=== PATIENT | male | born 1960 | race Caucasian/White ===

== ENCOUNTER 2016-06-04 23:05 | Emergency (ER) | payer OTHER ==
[2016-06-04 23:19] VITALS: RESP 18
[2016-06-04 23:31] LABS: Basophils # (A) 0.1 k/uL (0-0.2); Basophils % (A) 1 %; CH 34.1; Eosinophils # (A) 0.1 k/uL (0-0.7); Eosinophils % (A) 2 %; HCT 39.9 % (39.0-53.0); HDW 2.55; HGB 13.4 gm/dL (13.0-17.5); Luc # (Auto) 0.18; Luc % (Auto) 4; Lymphocytes # (A) 2.8 k/uL (1.0-4.8); Lymphocytes % (A) 54 %; MCH 32.8 pg (25.0-35.0); MCHC 33.6 g/dL (31.0-37.0); MCV 97.8 fL (80.0-100.0); Mean Platelet Volume 6.6; Monocytes # (A) 0.6 k/uL (0-1.0); Monocytes % (A) 11 %; Neutrophils # (A) 1.5 k/uL (1.3-7.7); Neutrophils % (A) 28 %; RBC 4.08 m/uL (4.30-5.90); RDW 14.2 % (11.5-15.5); WBC 5.2 k/uL (3.8-10.6); WBC (Perox) 5.21
[2016-06-04 23:39] LABS: ALT 24 U/L (21-72); AST 18 U/L (17-59); Alkaline Phosphatase 60 U/L (38-126); Amylase 73 U/L (30-110); Anion Gap 14 mmol/L; Blood Urea Nitrogen 11 mg/dL (9-20); Calcium 9.3 mg/dL (8.4-10.2); Carbon Dioxide 22 mmol/L (22-30); Chloride 102 mmol/L (98-107); Glucose 89 mg/dL (74-99); Magnesium 2.3 mg/dL (1.6-2.3); Non-African American GFR(MDRD) >60 (>60 ml/min/1.73 sqM); Sodium 138 mmol/L (137-145); Total Bilirubin 0.7 mg/dL (0.2-1.3); Total Protein 7.2 g/dL (6.3-8.2)
[2016-06-04 23:42] LABS: Partial Thromboplastin Time 25.7 sec (22.0-30.0); Prothrombin Time 10.2 sec (9.0-12.0)
[2016-06-04 23:49] LABS: Creatine Kinase 105 U/L (55-170); Manual Review Performed
[2016-06-05 00:02] LABS: Creatine Kinase MB 0.7 ng/mL (0.0-2.4); Troponin I <0.012 ng/mL (0.000-0.034)
--- NOTE | 2016-06-05 00:14 | XR ---
EXAM: XR Chest, 2 Views. CLINICAL HISTORY: Reason: Chest Pain TECHNIQUE: Frontal and lateral views of the chest. COMPARISON: Chest x-ray 03/27/16 FINDINGS: Lungs: Bilateral interstitial thickening, similar to prior. Pleural space: Unremarkable. No pneumothorax. Heart: Unremarkable. No cardiomegaly. Mediastinum: Unremarkable. Bones/joints: Unremarkable. IMPRESSION: Bilateral interstitial thickening, similar to prior. Findings may represent fibrotic changes, although mild edema or atypical pneumonia are considerations in the appropriate clinical setting.
[2016-06-05 00:16] VITALS: BP 108/60; PULSE 71; TEMP 97.8
--- NOTE | 2016-06-05 01:05 | ED ---
Chest Pain HPI - General Chief Complaint: Chest Pain Stated Complaint: Chest Pain Time Seen by Provider: 06/04/16 23:10 Source: patient, EMS Mode of arrival: EMS Limitations: no limitations - History of Present Illness MD Complaint: chest pain -: hour(s) Onset: during rest Pain Location: substernal Severity: moderate Quality: other (Burning) Consistency: constant Improves With: nothing Worsens With: nothing - Related Data Home Medications Medication Instructions Recorded Confirmed Aspirin EC [Ecotrin Low Dose] 81 mg PO DAILY 03/12/16 03/27/16 Gabapentin [Neurontin] 300 mg PO BID 03/12/16 03/27/16 Ibuprofen [Motrin] 800 mg PO TID PRN 03/12/16 03/27/16 QUEtiapine FUMARATE [Seroquel Xr] 300 mg PO HS 03/12/16 03/27/16 Previous Rx's Medication Instructions Recorded Atorvastatin [Lipitor] 20 mg PO HS #30 tab 02/04/16 Cilostazol [Pletal] 100 mg PO BID #30 tab 02/04/16 Cyanocobalamin [Vitamin B-12] 1,000 mcg PO DAILY #30 tab 02/04/16 Ergocalciferol [Vitamin D2 50,000 unit PO Q7D #7 cap 02/04/16 (DRISDOL)] Escitalopram [Lexapro] 20 mg PO DAILY #30 tab 02/04/16 Nitroglycerin Sl Tabs [Nitrostat] 0.4 mg SUBLINGUAL Q5M PRN #30 tab 02/04/16 traZODone HCL [Desyrel] 100 mg PO HS #30 tab 02/04/16 Ibuprofen [Motrin] 600 mg PO Q6HR PRN #20 tab 03/27/16 Allergies Allergy/AdvReac Type Severity Reaction Status Date / Time No Known Allergies Allergy Verified 06/04/16 23:15 Review of Systems ROS Statement: Those systems with pertinent positive or pertinent negative responses have been documented in the HPI. ROS Other: All systems not noted in ROS Statement are negative. Constitutional: Denies: fever, chills Respiratory: Denies: cough, dyspnea, wheezes Cardiovascular: Reports: as per HPI, chest pain. Denies: palpitations, edema, syncope Gastrointestinal: Denies: abdominal pain, nausea, vomiting, diarrhea Musculoskeletal: Denies: back pain Skin: Denies: rash Neurological: Denies: headache, weakness, numbness EKG Findings - EKG Results: EKG: interpreted by ELDA ZEPEDA, sinus rhythm (Rate 74 bpm), normal axis, normal QRS, normal ST/T, no acute changes - MO, Pacemaker, Normal: Normal tracing: normal tracing Past Medical History Past Medical History: Chest Pain / Angina, COPD, Deep Vein Thrombosis (DVT), Hyperlipidemia, Myocardial Infarction ([place]), Osteoarthritis (OA), Pulmonary Embolus (PE) Additional Past Medical History / Comment(s): 02/15/15 PT brought to [facility] ER by police after being apprehended for arrest warrants. Admitted for atypical chest pain, depression, ETOH intoxication , abdominal pain, chest wall pain. Admission on 12/22/14 for L leg pain-possibly muscular skeletal, L sided chest pain possible muscular skeletal with negative dobutamine stress test and hyponatremia. HX: dvt lt lower leg, pe 02-01-13, gout, linh inguinal hernias, psoriases, fx rt hand, occ vertigo. pt is edentulous, L forearm scars from suicide attempts, normocytic anemia, DJD. Last Myocardial Infarction Date:: early History of Any Multi-Drug Resistant Organisms: None Reported Past Surgical History: Orthopedic Surgery Additional Past Surgical History / Comment(s): orif lt leg plate/screws have since been removed. Past Anesthesia/Blood Transfusion Reactions: No Reported Reaction Past Psychological History: Anxiety, Depression Additional Psychological History / Comment(s): Pt states he lives with spouse. He denies using assistive device. According to PMR pt has had suicidal ideations in the past as well as scars on forearm due to suicide attempts. Smoking Status: Current every day smoker Past Alcohol Use History: Heavy Additional Past Alcohol Use History / Comment(s): started smoking at age 10 smokes 2.5 ppd, smoking cessation booklet given to pt. Patient denies any marijuana or street drug use. Patient states that he drinks 12 beers whenever he can get it. He denies any drug use. He lives at home with his .. Past Drug Use History: None Reported - Past Family History Brother(s) Additional Family Medical History / Comment(s): He has 3 brothers with no major medical problems. Patient does not have any sisters. He has 4 children are apparently okay. Father Family Medical History: Myocardial Infarction (MO) Additional Family Medical History / Comment(s): in his 60's [place] Mother Family Medical History: Myocardial Infarction ([place]) Additional Family Medical History / Comment(s): in her 60's [place] General Exam Limitations: no limitations General appearance: alert, in no apparent distress Head exam: Present: atraumatic, normocephalic Eye exam: Present: normal appearance. Absent: scleral icterus, conjunctival injection Respiratory exam: Present: normal lung sounds bilaterally. Absent: respiratory distress, wheezes, rales, rhonchi, stridor Cardiovascular Exam: Present: regular rate, normal rhythm, normal heart sounds. Absent: systolic murmur, diastolic murmur GI/Abdominal exam: Present: soft. Absent: distended, tenderness, guarding, rebound Extremities exam: Present: normal inspection, normal capillary refill. Absent: pedal edema, calf tenderness Back exam: Present: normal inspection. Absent: CVA tenderness (R), CVA tenderness (L) Neurological exam: Present: alert Skin exam: Present: warm, dry, intact, normal color. Absent: rash Course Vital Signs 06/04/16 06/05/16 23:15 00:15 Temperature 97.5 F L 97.8 F Pulse Rate 85 71 Respiratory 18 18 Rate Blood Pressure 114/66 108/60 O2 Sat by Pulse 99 95 Oximetry Disposition Clinical Impression: Chest pain, Alcohol intoxication Disposition: HOME SELF-CARE Condition: Good Instructions: Chest Pain (ED) Referrals: None,Stated [Primary Care Provider] - 1-2 days
== END 2016-06-05 01:28 | disposition home or self-care (01) ==
LOC: EC 23:05
DX: R07.9 Chest pain, unspecified (principal); F10.129 Alcohol abuse with intoxication, unspecified; M19.90 Unspecified osteoarthritis, unspecified site; F32.9 Major depressive disorder, single episode, unspecified; M10.9 Gout, unspecified; F41.9 Anxiety disorder, unspecified; I25.2 Old myocardial infarction; F17.200 Nicotine dependence, unspecified, uncomplicated; Z82.49 Family history of ischemic heart disease and other diseases of the circulatory system; Z95.0 Presence of cardiac pacemaker; Z79.82 Long term (current) use of aspirin; Z79.899 Other long term (current) drug therapy
CPT/HCPCS: 36415; 71020; 80053; 82075; 82150; 82550; 82553; 83690; 83735; 84484; 85025; 85610; 85730; 93005; 99285

== ENCOUNTER 2016-11-17 01:29 | Emergency (ER) | payer OTHER ==
[2016-11-17] MEDS ORDERED: KETOROLAC 30 MG/ML 1 ML VIAL IVP STA (02:17)
[2016-11-17] MEDS ORDERED: MECLIZINE 12.5 MG TAB PO STA (02:17)
[2016-11-17 03:02] LABS: Basophils # (A) 0.1 k/uL (0-0.2); Basophils % (A) 2 %; CH 34.1; CHCM 34.6; Eosinophils # (A) 0.2 k/uL (0-0.7); Eosinophils % (A) 3 %; HCT 40.4 % (39.0-53.0); HDW 2.46; Luc % (Auto) 2; Lymphocytes # (A) 2.3 k/uL (1.0-4.8); Lymphocytes % (A) 42 %; MCH 34.2 pg (25.0-35.0); MCHC 34.6 g/dL (31.0-37.0); MCV 98.9 fL (80.0-100.0); Mean Platelet Volume 7.6; Monocytes # (A) 0.6 k/uL (0-1.0); Monocytes % (A) 12 %; Neutrophils # (A) 2.2 k/uL (1.3-7.7); Neutrophils % (A) 41 %; RBC 4.08 m/uL (4.30-5.90); RDW 14.2 % (11.5-15.5); WBC 5.4 k/uL (3.8-10.6)
[2016-11-17 03:12] LABS: ALT 25 U/L (21-72); AST 18 U/L (17-59); Alkaline Phosphatase 85 U/L (38-126); Anion Gap 11 mmol/L; Blood Urea Nitrogen 9 mg/dL (9-20); C Reactive Protein 33.6 mg/L (<10.0); Calcium 9.4 mg/dL (8.4-10.2); Carbon Dioxide 25 mmol/L (22-30); Chloride 102 mmol/L (98-107); Glucose 88 mg/dL (74-99); Non-African American GFR(MDRD) >60 (>60 ml/min/1.73 sqM); Sodium 138 mmol/L (137-145); Total Bilirubin 0.5 mg/dL (0.2-1.3); Total Protein 7.5 g/dL (6.3-8.2); Uric Acid 5.7 mg/dL (3.5-8.5)
--- NOTE | 2016-11-17 03:18 | ED ---
Lower Extremity Injury HPI - General Source: patient, RN notes reviewed Mode of arrival: ambulatory Limitations: no limitations <Carlos Barr - Last Filed: 11/17/16 03:15> <Emir Lugo - Last Filed: 11/17/16 06:23> - General Chief Complaint: Extremity Injury, Lower Stated Complaint: Leg pain Time Seen by Provider: 11/17/16 01:53 - History of Present Illness Initial Comments: this a 55-year-old male presents emergency Department with multiple complaints. Patient complains of bilateral feet pain which is chronic in nature but states his right leg has had increased swelling in his foot primarily. Patient states it started 4 days ago. Patient states she has a history DVT of his left lower extremity. Patient states that his right foot is very painful to touch and to step on. Patient denies any trauma or any injury noted. Patient states she's had low-grade temps at home. Patient denies any history of infection to his feet. Patient states that he also had had some dizziness was started 1 hour ago. Patient states felt the room was spinning. He did state it was better at rest. Denies any chest pain no shortness of breath. (Carlos Barr) - Related Data Home Medications Medication Instructions Recorded Confirmed Aspirin EC [Ecotrin Low Dose] 81 mg PO DAILY 03/12/16 03/27/16 Gabapentin [Neurontin] 300 mg PO BID 03/12/16 03/27/16 Ibuprofen [Motrin] 800 mg PO TID PRN 03/12/16 03/27/16 QUEtiapine FUMARATE [Seroquel Xr] 300 mg PO HS 03/12/16 03/27/16 Previous Rx's Medication Instructions Recorded Atorvastatin [Lipitor] 20 mg PO HS #30 tab 02/04/16 Cilostazol [Pletal] 100 mg PO BID #30 tab 02/04/16 Cyanocobalamin [Vitamin B-12] 1,000 mcg PO DAILY #30 tab 02/04/16 Ergocalciferol [Vitamin D2 50,000 unit PO Q7D #7 cap 02/04/16 (DRISDOL)] Escitalopram [Lexapro] 20 mg PO DAILY #30 tab 02/04/16 Nitroglycerin Sl Tabs [Nitrostat] 0.4 mg SUBLINGUAL Q5M PRN #30 tab 02/04/16 traZODone HCL [Desyrel] 100 mg PO HS #30 tab 02/04/16 Ibuprofen [Motrin] 600 mg PO Q6HR PRN #20 tab 03/27/16 Sulfamethox-Tmp 800-160Mg [Bactrim 2 each PO Q12HR #28 tab 11/17/16 Ds] Allergies Allergy/AdvReac Type Severity Reaction Status Date / Time No Known Allergies Allergy Verified 11/17/16 01:37 Review of Systems ROS Other: All systems not noted in ROS Statement are negative. <Carlos Barr - Last Filed: 11/17/16 03:15> ROS Other: All systems not noted in ROS Statement are negative. <Emir Lugo - Last Filed: 11/17/16 06:23> ROS Statement: Those systems with pertinent positive or pertinent negative responses have been documented in the HPI. Past Medical History Past Medical History: Chest Pain / Angina, COPD, Deep Vein Thrombosis (DVT), Hyperlipidemia, Myocardial Infarction (DC), Osteoarthritis (OA), Pulmonary Embolus (PE) Additional Past Medical History / Comment(s): 02/15/15 PT brought to [facility] ER by police after being apprehended for arrest warrants. Admitted for atypical chest pain, depression, ETOH intoxication , abdominal pain, chest wall pain. Admission on 12/22/14 for L leg pain-possibly muscular skeletal, L sided chest pain possible muscular skeletal with negative dobutamine stress test and hyponatremia. HX: dvt lt lower leg, pe 02-01-13, gout, linh inguinal hernias, psoriases, fx rt hand, occ vertigo. pt is edentulous, L forearm scars from suicide attempts, normocytic anemia, DJD. Last Myocardial Infarction Date:: early History of Any Multi-Drug Resistant Organisms: None Reported Past Surgical History: Orthopedic Surgery Additional Past Surgical History / Comment(s): orif lt leg plate/screws have since been removed. Past Anesthesia/Blood Transfusion Reactions: No Reported Reaction Past Psychological History: Anxiety, Depression Smoking Status: Current every day smoker Past Alcohol Use History: Daily, Heavy Past Drug Use History: None Reported - Past Family History Brother(s) Additional Family Medical History / Comment(s): He has 3 brothers with no major medical problems. Patient does not have any sisters. He has 4 children are apparently okay. Father Family Medical History: Myocardial Infarction (DC) Additional Family Medical History / Comment(s): in his 60's [place] Mother Family Medical History: Myocardial Infarction (DC) Additional Family Medical History / Comment(s): in her 60's [place] <Carlos Barr - Last Filed: 11/17/16 03:15> General Exam Limitations: no limitations General appearance: alert, in no apparent distress Eye exam: Present: normal appearance, PERRL, EOMI. Absent: scleral icterus, conjunctival injection, periorbital swelling ENT exam: Present: normal exam, mucous membranes moist, TM's normal bilaterally , normal external ear exam. Absent: normal oropharynx (edentulous) Neck exam: Present: normal inspection. Absent: tenderness, meningismus, lymphadenopathy Respiratory exam: Present: normal lung sounds bilaterally. Absent: respiratory distress, wheezes, rales, rhonchi, stridor Cardiovascular Exam: Present: regular rate, normal rhythm, normal heart sounds. Absent: systolic murmur, diastolic murmur, rubs, gallop, clicks GI/Abdominal exam: Present: soft, normal bowel sounds. Absent: distended, tenderness, guarding, rebound, rigid Extremities exam: Present: other (right lower extremity there is moderate swelling primarily to the foot with erythema and warmth. There is a faint pedal pulses 1+ on the right. Patient has chronic changes of left lower extremities no swelling) Neurological exam: Present: alert, oriented X3, CN II-XII intact, reflexes normal. Absent: motor sensory deficit <Carlos Barr - Last Filed: 11/17/16 03:15> Medical Decision Making - Lab Data Result diagrams: 11/17/16 02:44 11/17/16 02:44 <Carlos Barr - Last Filed: 11/17/16 03:15> - Lab Data Result diagrams: 11/17/16 02:44 11/17/16 02:44 <Emir Lugo - Last Filed: 11/17/16 06:23> - Lab Data Lab Results 11/17/16 11/17/16 11/17/16 Range/Units 02:44 02:44 02:44 WBC 5.4 (3.8-10.6) k/uL RBC 4.08 L (4.30-5.90) m/uL Hgb 14.0 (13.0-17.5) gm/dL Hct 40.4 (39.0-53.0) % MCV 98.9 (80.0-100.0) fL MCH 34.2 (25.0-35.0) pg MCHC 34.6 (31.0-37.0) g/dL RDW 14.2 (11.5-15.5) % Plt Count 187 (150-450) k/uL Neutrophils % 41 % Lymphocytes % 42 % Monocytes % 12 % Eosinophils % 3 % Basophils % 2 % Neutrophils # 2.2 (1.3-7.7) k/uL Lymphocytes # 2.3 (1.0-4.8) k/uL Monocytes # 0.6 (0-1.0) k/uL Eosinophils # 0.2 (0-0.7) k/uL Basophils # 0.1 (0-0.2) k/uL PT 10.0 (9.0-12.0) sec INR 1.0 (<1.2) APTT 27.2 (22.0-30.0) sec D-Dimer 0.74 H (<0.60) mg/L FEU Sodium 138 (137-145) mmol/L Potassium 4.0 (3.5-5.1) mmol/L Chloride 102 (98-107) mmol/L Carbon Dioxide 25 (22-30) mmol/L Anion Gap 11 mmol/L BUN 9 (9-20) mg/dL Creatinine 1.10 (0.66-1.25) mg/dL Est GFR (MDRD) Af Amer >60 (>60 ml/min/1.73 sqM) Est GFR (MDRD) Non-Af >60 (>60 ml/min/1.73 sqM) Glucose 88 (74-99) mg/dL Uric Acid 5.7 (3.5-8.5) mg/dL Calcium 9.4 (8.4-10.2) mg/dL Total Bilirubin 0.5 (0.2-1.3) mg/dL AST 18 (17-59) U/L ALT 25 (21-72) U/L Alkaline Phosphatase 85 (38-126) U/L Troponin I (0.000-0.034) ng/mL C-Reactive Protein 33.6 H (<10.0) mg/L Total Protein 7.5 (6.3-8.2) g/dL Albumin 4.4 (3.5-5.0) g/dL 11/17/16 Range/Units 02:44 WBC (3.8-10.6) k/uL RBC (4.30-5.90) m/uL Hgb (13.0-17.5) gm/dL Hct (39.0-53.0) % MCV (80.0-100.0) fL MCH (25.0-35.0) pg MCHC (31.0-37.0) g/dL RDW (11.5-15.5) % Plt Count (150-450) k/uL Neutrophils % % Lymphocytes % % Monocytes % % Eosinophils % % Basophils % % Neutrophils # (1.3-7.7) k/uL Lymphocytes # (1.0-4.8) k/uL Monocytes # (0-1.0) k/uL Eosinophils # (0-0.7) k/uL Basophils # (0-0.2) k/uL PT (9.0-12.0) sec INR (<1.2) APTT (22.0-30.0) sec D-Dimer (<0.60) mg/L FEU Sodium (137-145) mmol/L Potassium (3.5-5.1) mmol/L Chloride (98-107) mmol/L Carbon Dioxide (22-30) mmol/L Anion Gap mmol/L BUN (9-20) mg/dL Creatinine (0.66-1.25) mg/dL Est GFR (MDRD) Af Amer (>60 ml/min/1.73 sqM) Est GFR (MDRD) Non-Af (>60 ml/min/1.73 sqM) Glucose (74-99) mg/dL Uric Acid (3.5-8.5) mg/dL Calcium (8.4-10.2) mg/dL Total Bilirubin (0.2-1.3) mg/dL AST (17-59) U/L ALT (21-72) U/L Alkaline Phosphatase (38-126) U/L Troponin I <0.012 (0.000-0.034) ng/mL C-Reactive Protein (<10.0) mg/L Total Protein (6.3-8.2) g/dL Albumin (3.5-5.0) g/dL 11/17/16 03:17 EKG performed at 2:32 sinus bradycardia with a rate of 59 HI interval 140 QRS duration 86 QT/QTC 48/403 (Carlos Barr) Disposition <Carlos Barr - Last Filed: 11/17/16 03:15> <Emir Lugo - Last Filed: 11/17/16 06:23> Clinical Impression: Cellulitis Disposition: HOME SELF-CARE Condition: Fair Instructions: Cellulitis (ED) Prescriptions: Sulfamethox-Tmp 800-160Mg [Bactrim Ds] 2 each PO Q12HR #28 tab Referrals: None,Stated [Primary Care Provider] - 1-2 days
[2016-11-17 03:19] LABS: Partial Thromboplastin Time 27.2 sec (22.0-30.0)
[2016-11-17 04:12] VITALS: RESP 16
[2016-11-17] MEDS ORDERED: HYDROcodone/APAP 5-325MG 1 EACH TAB PO STA (04:34)
--- NOTE | 2016-11-17 04:36 | XR ---
PROCEDURE: FILM RIGHT FOOT HISTORY: 56-year-old male with right foot pain. COMPARISON: None TECHNIQUE: Frontal, lateral, and oblique views of the right foot were obtained. FINDINGS: Limited by osteopenia. Both ruptures are intact. Joint spaces are preserved. Soft tissue swelling. 1 centimeter os trigonum. IMPRESSION: Soft tissue swelling without evidence of acute fracture or subluxation. 1 centimeter os trigonum.
[2016-11-17 06:08] VITALS: BP 107/66; PULSE 50
--- NOTE | 2016-11-17 06:17 | US ---
PROCEDURE: US VENOUS RIGHT LOWER EXTREMITY HISTORY: 56-year-old male with right lower extremity pain. COMPARISON: None TECHNIQUE: Real-time sonographic evaluation of the right lower extremity deep venous system was performed using compression, color flow, and Doppler/spectral waveform analysis. FINDINGS: Right: Appropriate compression and color flow identified within the visualized external iliac vein, common femoral vein, superior aspect of the greater saphenous vein, deep femoral vein, femoral vein, and popliteal vein, small saphenous vein, and proximal aspect of the calf veins. Appropriate flow identified within the posterior tibialis vein and the peroneal vein. IMPRESSION: 1. No evidence of DVT in the visualized right lower extremity deep venous system as detailed above.
[2016-11-17] MEDS ORDERED: SULFAMETHOX-TMP 800-160MG 1 EACH TAB PO STA (06:23)
[2016-11-17 06:56] VITALS: TEMP 97.9
== END 2016-11-17 06:54 | disposition home or self-care (01) ==
LOC: EC 01:29
DX: L03.115 Cellulitis of right lower limb (principal); R00.1 Bradycardia, unspecified; E78.5 Hyperlipidemia, unspecified; I25.2 Old myocardial infarction; F41.9 Anxiety disorder, unspecified; F32.9 Major depressive disorder, single episode, unspecified; F17.200 Nicotine dependence, unspecified, uncomplicated; Z86.711 Personal history of pulmonary embolism; Z86.718 Personal history of other venous thrombosis and embolism; Z79.82 Long term (current) use of aspirin; Z79.899 Other long term (current) drug therapy
CPT/HCPCS: 99284; 96374; 36415; 93005; 85379; 80053; 84550; 84484; 85025; 85610; 85730; 86140; 73630; 93971; J1885

== ENCOUNTER 2017-01-03 00:37 | Emergency (ER) | payer OTHER ==
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
--- NOTE | 2017-01-03 02:54 | CT ---
EXAM: CT Head Without Intravenous Contrast CLINICAL HISTORY: Reason: Trauma TECHNIQUE: Axial computed tomography images of the head/brain without intravenous contrast. CTDI is 60 mGy and DLP is 1100 mGy-cm. This CT exam was performed using one or more of the following dose reduction techniques: automated exposure control, adjustment of the mA and/or kV according to patient size, and/or use of iterative reconstruction technique. COMPARISON: No relevant prior studies available. FINDINGS: Brain: Unremarkable. No hemorrhage. Age-appropriate white matter appearance. Ventricles: Unremarkable. No ventriculomegaly. Bones/joints: Unremarkable. No acute fracture. Soft tissues: Unremarkable. Sinuses: Unremarkable as visualized. Mastoid air cells: Unremarkable as visualized. No mastoid effusion. IMPRESSION: No acute intracranial hemorrhage or skull fractures. EXAM: CT Cervical Spine Without Intravenous Contrast CLINICAL HISTORY: Reason: Trauma TECHNIQUE: Axial computed tomography images of the cervical spine without intravenous contrast. CTDI is 20 mGy and DLP is 400 mGy-cm. This CT exam was performed using one or more of the following dose reduction techniques: automated exposure control, adjustment of the mA and/or kV according to patient size, and/or use of iterative reconstruction technique. COMPARISON: No relevant prior studies available. FINDINGS: Vertebrae: Unremarkable. No acute fracture. Discs/spinal canal/neural foramina: No acute findings. Chronic multilevel degenerative disease. Soft tissues: Unremarkable. Lung apices: Unremarkable as visualized. IMPRESSION: No acute fractures or prevertebral soft tissue swelling.
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
--- NOTE | 2017-01-03 03:11 | XR ---
EXAM: XR Left Knee, 3 views CLINICAL HISTORY: Reason: Trauma TECHNIQUE: Three views of the left knee. COMPARISON: No relevant prior studies available. FINDINGS: Bones/joints: No radiographic evidence for acute fracture. No dislocation. Soft tissues: Anterior soft tissue swelling. Left knee effusion. Atherosclerotic calcifications. IMPRESSION: No acute fractures or dislocation. Anterior soft tissue swelling and left knee effusion.
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
[2017-01-03 03:25] VITALS: BP 115/68; PULSE 68; RESP 16; TEMP 97.4
[2017-01-03] MEDS ORDERED: KETOROLAC 30 MG/ML 1 ML VIAL IM STA (03:31)
== END 2017-01-03 03:54 | disposition home or self-care (01) ==
LOC: EC 00:37
DX: S46.912A Strain of unspecified muscle, fascia and tendon at shoulder and upper arm level, left arm, initial encounter (principal); M25.462 Effusion, left knee; J44.9 Chronic obstructive pulmonary disease, unspecified; E78.5 Hyperlipidemia, unspecified; I25.2 Old myocardial infarction; M19.90 Unspecified osteoarthritis, unspecified site; Z86.711 Personal history of pulmonary embolism; Z86.718 Personal history of other venous thrombosis and embolism; F41.9 Anxiety disorder, unspecified; F32.9 Major depressive disorder, single episode, unspecified; F17.200 Nicotine dependence, unspecified, uncomplicated; Z79.82 Long term (current) use of aspirin; Z79.899 Other long term (current) drug therapy; V19.9XXA Pedal cyclist (driver) (passenger) injured in unspecified traffic accident, initial encounter; Y93.55 Activity, bike riding
CPT/HCPCS: 99284 ×2; 96372 ×2; 82075; 72072; 72110; 73030; 73562; 72125; 70450; J1885

== ENCOUNTER 2017-06-30 22:57 | Emergency (ER) | payer OTHER ==
[2017-06-30] MEDS ORDERED: SODIUM CHLORIDE 0.9% 1,000 ML IV STA (23:18)
[2017-06-30] MEDS ORDERED: SODIUM CHLORIDE 0.9% 500 ML IV STA (23:18)
--- NOTE | 2017-06-30 23:34 | ED ---
General Adult HPI - General Chief complaint: Fall Stated complaint: Fall- Head Injury Time Seen by Provider: 06/30/17 23:14 Source: patient, family, RN notes reviewed, old records reviewed Mode of arrival: wheelchair Limitations: altered mental status - History of Present Illness Initial comments: 56-year-old male presents status post fall with head injury. Patient fell out of bed approximately 9 PM, striking the left side of his head. Is complaining headache is some neck pain. Patient had complete ambulating to his son's vehicle after the fall. His been somewhat confused. Patient's son states he does have history of heart issues and was previously prescribed blood thinners but is not taking this medication in several months. They are uncertain what blood thinners he was on. Patient does admit to drinking several beers earlier in the day. No history of vomiting. Patient does admit to being suicidal. - Related Data Home Medications Medication Instructions Recorded Confirmed Aspirin EC [Ecotrin Low Dose] 81 mg PO DAILY 03/12/16 01/03/17 Gabapentin [Neurontin] 300 mg PO BID 03/12/16 01/03/17 Ibuprofen [Motrin] 800 mg PO TID PRN 03/12/16 01/03/17 QUEtiapine FUMARATE [Seroquel Xr] 300 mg PO HS 03/12/16 01/03/17 Previous Rx's Medication Instructions Recorded Atorvastatin [Lipitor] 20 mg PO HS #30 tab 02/04/16 Cilostazol [Pletal] 100 mg PO BID #30 tab 02/04/16 Cyanocobalamin [Vitamin B-12] 1,000 mcg PO DAILY #30 tab 02/04/16 Ergocalciferol [Vitamin D2 50,000 unit PO Q7D #7 cap 02/04/16 (DRISDOL)] Escitalopram [Lexapro] 20 mg PO DAILY #30 tab 02/04/16 Nitroglycerin Sl Tabs [Nitrostat] 0.4 mg SUBLINGUAL Q5M PRN #30 tab 02/04/16 traZODone HCL [Desyrel] 100 mg PO HS #30 tab 02/04/16 Ibuprofen [Motrin] 600 mg PO Q6HR PRN #20 tab 03/27/16 Sulfamethox-Tmp 800-160Mg [Bactrim 2 each PO Q12HR #28 tab 08/18/17 Ds] HYDROcodone/APAP 5-325MG [[place] 1 tab PO Q6HR PRN #20 tab 01/03/17 5-325] Hydrocodone/Acetaminophen [[place] 1 tab PO Q6HR PRN #15 tab 01/03/17 5-325] Allergies Allergy/AdvReac Type Severity Reaction Status Date / Time No Known Allergies Allergy Verified 06/30/17 23:04 Review of Systems ROS Statement: Those systems with pertinent positive or pertinent negative responses have been documented in the HPI. ROS Other: All systems not noted in ROS Statement are negative. Past Medical History Past Medical History: Chest Pain / Angina, COPD, Deep Vein Thrombosis (DVT), Hyperlipidemia, Myocardial Infarction ([place]), Osteoarthritis (OA), Pulmonary Embolus (PE) Additional Past Medical History / Comment(s): 02/15/15 PT brought to [facility] ER by police after being apprehended for arrest warrants. Admitted for atypical chest pain, depression, ETOH intoxication , abdominal pain, chest wall pain. Admission on 12/22/14 for L leg pain-possibly muscular skeletal, L sided chest pain possible muscular skeletal with negative dobutamine stress test and hyponatremia. HX: dvt lt lower leg, pe 02-01-13, gout, linh inguinal hernias, psoriases, fx rt hand, occ vertigo. pt is edentulous, L forearm scars from suicide attempts, normocytic anemia, DJD. Last Myocardial Infarction Date:: early History of Any Multi-Drug Resistant Organisms: None Reported Past Surgical History: Orthopedic Surgery Additional Past Surgical History / Comment(s): orif lt leg plate/screws have since been removed. Past Anesthesia/Blood Transfusion Reactions: No Reported Reaction Past Psychological History: Anxiety, Depression Smoking Status: Current every day smoker Past Alcohol Use History: Daily, Heavy Past Drug Use History: None Reported - Past Family History Brother(s) Additional Family Medical History / Comment(s): He has 3 brothers with no major medical problems. Patient does not have any sisters. He has 4 children are apparently okay. Father Family Medical History: Myocardial Infarction ([place]) Additional Family Medical History / Comment(s): in his 60's [place] Mother Family Medical History: Myocardial Infarction ([place]) Additional Family Medical History / Comment(s): in her 60's [place] General Exam Limitations: altered mental status General appearance: alert, appears intoxicated Head exam: Present: other (Left parietal hematoma) Eye exam: Present: normal appearance, PERRL, EOMI ENT exam: Present: mucous membranes dry Neck exam: Present: tenderness Respiratory exam: Present: normal lung sounds bilaterally. Absent: respiratory distress, wheezes Cardiovascular Exam: Present: regular rate, normal rhythm GI/Abdominal exam: Present: soft. Absent: distended, tenderness Extremities exam: Present: normal inspection, normal capillary refill. Absent: pedal edema Back exam: Present: normal inspection, full ROM Neurological exam: Present: alert, oriented X3, CN II-XII intact. Absent: motor sensory deficit Psychiatric exam: Present: depressed, flat affect, suicidal ideation Skin exam: Present: warm, dry, intact. Absent: cyanosis, diaphoretic Course Vital Signs 06/30/17 07/01/17 07/01/17 22:59 07:15 13:39 Temperature 98.3 F 98.1 F 99.1 F Pulse Rate 76 56 L 69 Respiratory 20 17 17 Rate Blood Pressure 113/64 101/55 124/70 O2 Sat by Pulse 98 97 Oximetry - Reevaluation(s) Reevaluation #1: 07/01/17 00:12 Patient is intoxicated, alcohol 251, he is suicidal. He will be observed, awaiting clinical sobriety and will be evaluated by EPS. Patient's care is signed out at shift change to Dr Gaitan. 07/13/17 11:40 EKG Findings - EKG Comments: EKG Findings:: EKG: Normal sinus rhythm ventricular rate 69, FL interval 144, QRS duration 76, QTC 450, no signs of acute ischemia Medical Decision Making - Lab Data Result diagrams: 06/30/17 23:47 06/30/17 23:47 Lab Results 06/30/17 06/30/17 06/30/17 Range/Units 23:47 23:47 23:47 WBC 5.3 (3.8-10.6) k/uL RBC 4.50 (4.30-5.90) m/uL Hgb 15.5 (13.0-17.5) gm/dL Hct 42.4 (39.0-53.0) % MCV 94.2 (80.0-100.0) fL MCH 34.4 (25.0-35.0) pg MCHC 36.5 (31.0-37.0) g/dL RDW 13.9 (11.5-15.5) % Plt Count 239 (150-450) k/uL Neutrophils % (Manual) 34 % Lymphocytes % (Manual) 54 % Monocytes % (Manual) 10 % Eosinophils % (Manual) 1 % Basophils % (Manual) 1 % Neutrophils # (Manual) 1.80 (1.3-7.7) k/uL Lymphocytes # (Manual) 2.86 (1.0-4.8) k/uL Monocytes # (Manual) 0.53 (0-1.0) k/uL Eosinophils # (Manual) 0.05 (0-0.7) k/uL Basophils # (Manual) 0.05 (0-0.2) k/uL Nucleated RBCs 0 (0-0) /100 WBC Manual Slide Review Performed PT (9.0-12.0) sec INR (<1.2) APTT (22.0-30.0) sec Sodium 144 (137-145) mmol/L Potassium 4.0 (3.5-5.1) mmol/L Chloride 106 (98-107) mmol/L Carbon Dioxide 22 (22-30) mmol/L Anion Gap 16 mmol/L BUN 6 L (9-20) mg/dL Creatinine 1.00 (0.66-1.25) mg/dL Est GFR (CKD-EPI)AfAm >90 (>60 ml/min/1.73 sqM) Est GFR (CKD-EPI)NonAf 84 (>60 ml/min/1.73 sqM) Glucose 87 (74-99) mg/dL Calcium 9.5 (8.4-10.2) mg/dL Total Bilirubin 0.4 (0.2-1.3) mg/dL AST 18 (17-59) U/L ALT 13 L (21-72) U/L Alkaline Phosphatase 78 (38-126) U/L Total Creatine Kinase 87 (55-170) U/L CK-MB (CK-2) 1.0 (0.0-2.4) ng/mL CK-MB (CK-2) Rel Index 1.1 Troponin I <0.012 (0.000-0.034) ng/mL Total Protein 7.5 (6.3-8.2) g/dL Albumin 4.3 (3.5-5.0) g/dL Urine Color Urine Appearance (Clear) Urine pH (5.0-8.0) Ur Specific Amigo (1.001-1.035) Urine Protein (Negative) Urine Glucose (UA) (Negative) Urine Ketones (Negative) Urine Blood (Negative) Urine Nitrite (Negative) Urine Bilirubin (Negative) Urine Urobilinogen (<2.0) mg/dL Ur Leukocyte Esterase (Negative) Urine Opiates Screen (NotDetected) Ur Oxycodone Screen (NotDetected) Urine Methadone Screen (NotDetected) Ur Propoxyphene Screen (NotDetected) Ur Barbiturates Screen (NotDetected) U Tricyclic Antidepress (NotDetected) Ur Phencyclidine Scrn (NotDetected) Ur Amphetamines Screen (NotDetected) U Methamphetamines Scrn (NotDetected) U Benzodiazepines Scrn (NotDetected) Urine Cocaine Screen (NotDetected) U Marijuana (THC) Screen (NotDetected) Serum Alcohol 251 mg/dL Blood Type Blood Type Confirm Blood Type Recheck Antibody Screen Spec Expiration Date 06/30/17 06/30/17 06/30/17 Range/Units 23:47 23:47 23:47 WBC (3.8-10.6) k/uL RBC (4.30-5.90) m/uL Hgb (13.0-17.5) gm/dL Hct (39.0-53.0) % MCV (80.0-100.0) fL MCH (25.0-35.0) pg MCHC (31.0-37.0) g/dL RDW (11.5-15.5) % Plt Count (150-450) k/uL Neutrophils % (Manual) % Lymphocytes % (Manual) % Monocytes % (Manual) % Eosinophils % (Manual) % Basophils % (Manual) % Neutrophils # (Manual) (1.3-7.7) k/uL Lymphocytes # (Manual) (1.0-4.8) k/uL Monocytes # (Manual) (0-1.0) k/uL Eosinophils # (Manual) (0-0.7) k/uL Basophils # (Manual) (0-0.2) k/uL Nucleated RBCs (0-0) /100 WBC Manual Slide Review PT 9.7 (9.0-12.0) sec INR 1.0 (<1.2) APTT 24.4 (22.0-30.0) sec Sodium (137-145) mmol/L Potassium (3.5-5.1) mmol/L Chloride (98-107) mmol/L Carbon Dioxide (22-30) mmol/L Anion Gap mmol/L BUN (9-20) mg/dL Creatinine (0.66-1.25) mg/dL Est GFR (CKD-EPI)AfAm (>60 ml/min/1.73 sqM) Est GFR (CKD-EPI)NonAf (>60 ml/min/1.73 sqM) Glucose (74-99) mg/dL Calcium (8.4-10.2) mg/dL Total Bilirubin (0.2-1.3) mg/dL AST (17-59) U/L ALT (21-72) U/L Alkaline Phosphatase (38-126) U/L Total Creatine Kinase (55-170) U/L CK-MB (CK-2) (0.0-2.4) ng/mL CK-MB (CK-2) Rel Index Troponin I (0.000-0.034) ng/mL Total Protein (6.3-8.2) g/dL Albumin (3.5-5.0) g/dL Urine Color Colorless Urine Appearance Clear (Clear) Urine pH 5.5 (5.0-8.0) Ur Specific Amigo 1.001 (1.001-1.035) Urine Protein Negative (Negative) Urine Glucose (UA) Negative (Negative) Urine Ketones Negative (Negative) Urine Blood Negative (Negative) Urine Nitrite Negative (Negative) Urine Bilirubin Negative (Negative) Urine Urobilinogen <2.0 (<2.0) mg/dL Ur Leukocyte Esterase Negative (Negative) Urine Opiates Screen Not Detected (NotDetected) Ur Oxycodone Screen Not Detected (NotDetected) Urine Methadone Screen Not Detected (NotDetected) Ur Propoxyphene Screen Not Detected (NotDetected) Ur Barbiturates Screen Not Detected (NotDetected) U Tricyclic Antidepress Not Detected (NotDetected) Ur Phencyclidine Scrn Not Detected (NotDetected) Ur Amphetamines Screen Not Detected (NotDetected) U Methamphetamines Scrn Not Detected (NotDetected) U Benzodiazepines Scrn Not Detected (NotDetected) Urine Cocaine Screen Not Detected (NotDetected) U Marijuana (THC) Screen Not Detected (NotDetected) Serum Alcohol mg/dL Blood Type A Positive Blood Type Confirm Blood Type Recheck CABO Indicated Antibody Screen NEGATIVE Spec Expiration Date 07/03/2017 - 234607/01/17 Range/Units 02:13 WBC (3.8-10.6) k/uL RBC (4.30-5.90) m/uL Hgb (13.0-17.5) gm/dL Hct (39.0-53.0) % MCV (80.0-100.0) fL MCH (25.0-35.0) pg MCHC (31.0-37.0) g/dL RDW (11.5-15.5) % Plt Count (150-450) k/uL Neutrophils % (Manual) % Lymphocytes % (Manual) % Monocytes % (Manual) % Eosinophils % (Manual) % Basophils % (Manual) % Neutrophils # (Manual) (1.3-7.7) k/uL Lymphocytes # (Manual) (1.0-4.8) k/uL Monocytes # (Manual) (0-1.0) k/uL Eosinophils # (Manual) (0-0.7) k/uL Basophils # (Manual) (0-0.2) k/uL Nucleated RBCs (0-0) /100 WBC Manual Slide Review PT (9.0-12.0) sec INR (<1.2) APTT (22.0-30.0) sec Sodium (137-145) mmol/L Potassium (3.5-5.1) mmol/L Chloride (98-107) mmol/L Carbon Dioxide (22-30) mmol/L Anion Gap mmol/L BUN (9-20) mg/dL Creatinine (0.66-1.25) mg/dL Est GFR (CKD-EPI)AfAm (>60 ml/min/1.73 sqM) Est GFR (CKD-EPI)NonAf (>60 ml/min/1.73 sqM) Glucose (74-99) mg/dL Calcium (8.4-10.2) mg/dL Total Bilirubin (0.2-1.3) mg/dL AST (17-59) U/L ALT (21-72) U/L Alkaline Phosphatase (38-126) U/L Total Creatine Kinase (55-170) U/L CK-MB (CK-2) (0.0-2.4) ng/mL CK-MB (CK-2) Rel Index Troponin I (0.000-0.034) ng/mL Total Protein (6.3-8.2) g/dL Albumin (3.5-5.0) g/dL Urine Color Urine Appearance (Clear) Urine pH (5.0-8.0) Ur Specific Amigo (1.001-1.035) Urine Protein (Negative) Urine Glucose (UA) (Negative) Urine Ketones (Negative) Urine Blood (Negative) Urine Nitrite (Negative) Urine Bilirubin (Negative) Urine Urobilinogen (<2.0) mg/dL Ur Leukocyte Esterase (Negative) Urine Opiates Screen (NotDetected) Ur Oxycodone Screen (NotDetected) Urine Methadone Screen (NotDetected) Ur Propoxyphene Screen (NotDetected) Ur Barbiturates Screen (NotDetected) U Tricyclic Antidepress (NotDetected) Ur Phencyclidine Scrn (NotDetected) Ur Amphetamines Screen (NotDetected) U Methamphetamines Scrn (NotDetected) U Benzodiazepines Scrn (NotDetected) Urine Cocaine Screen (NotDetected) U Marijuana (THC) Screen (NotDetected) Serum Alcohol mg/dL Blood Type Blood Type Confirm A Positive Blood Type Recheck Antibody Screen Spec Expiration Date Disposition Clinical Impression: Fall, Alcohol intoxication, Depression Disposition: HOME SELF-CARE Condition: Good Instructions: Fall Prevention for Older Adults (ED), Abuse of Alcohol (ED) Is patient prescribed a controlled substance at d/c from ED?: No Referrals: None,Stated [REFERRING] - 1-2 days
--- NOTE | 2017-06-30 23:43 | CT ---
EXAMINATION TYPE: CT brain ofe taveras con DATE OF EXAM: 06/30/2017 COMPARISON: 01/03/2017 HISTORY: Prior on synapse, fall form bed, not responding appropriately CT DLP: head-2042.60 body-375.50 mGycm Automated exposure control for dose reduction was used. TECHNIQUE: CT scan of the head and cervical spine are performed without contrast. FINDINGS: Ventricles of normal size. There is no mass effect nor midline shift. There is no sign of intracranial hemorrhage. The calvarium appears intact. Cervical vertebra have normal alignment. There is some narrowing and spur formation at C5-6. Posterio r elements are intact. There is no evidence for fracture. There is mild hypertrophic facet arthropath y. The skull base appears intact. IMPRESSION: Negative CT scan of the brain. There is some facet arthropathy on the left side in the cervical spine . No fracture seen. There is no adverse change compared to old exam.
--- NOTE | 2017-06-30 23:44 | XR ---
EXAMINATION TYPE: XR pelvis AP view DATE OF EXAM: 06/30/2017 COMPARISON: NONE HISTORY: Fall. Pain. TECHNIQUE: Single view. FINDINGS: The pelvic ring appears intact. Proximal femurs and hip joints are intact. Sacroiliac joints are inta ct. I see no fracture. IMPRESSION: No acute abnormality of the pelvis.
--- NOTE | 2017-06-30 23:46 | XR ---
EXAMINATION TYPE: XR chest 1V portable DATE OF EXAM: 06/30/2017 COMPARISON: 06/04/2016 HISTORY: Fell from bed. Pain. TECHNIQUE: Single frontal view of the chest is obtained. FINDINGS: There is no heart failure nor confluent pneumonic infiltrate. Costophrenic angles are brody r. There is no sign of pleural effusion or pneumothorax. I see no rib fracture. IMPRESSION: No active cardiopulmonary disease. No change.
[2017-06-30 23:57] LABS: Appearance,Urine Clear (Clear); Bilirubin,Urine Negative (Negative); Blood,Urine Negative (Negative); Color,Urine Colorless; Glucose,Urine (UA) Negative (Negative); HCT 42.4 % (39.0-53.0); HGB 15.5 gm/dL (13.0-17.5); Ketones,Urine Negative (Negative); Leukocyte Esterase,Urine Negative (Negative); MCH 34.4 pg (25.0-35.0); MCHC 36.5 g/dL (31.0-37.0); MCV 94.2 fL (80.0-100.0); Mean Platelet Volume 7.1; Nitrite,Urine Negative (Negative); PH, Urine 5.5 (5.0-8.0); Platelet Count 239 k/uL (150-450); Protein,Urine Negative (Negative); RDW 13.9 % (11.5-15.5); Specific Gravity,Urine 1.001 (1.001-1.035); Urobilinogen,Urine <2.0 mg/dL (<2.0); WBC 5.3 k/uL (3.8-10.6)
[2017-07-01 00:06] LABS: Partial Thromboplastin Time 24.4 sec (22.0-30.0); Prothrombin Time 9.7 sec (9.0-12.0)
[2017-07-01 00:07] LABS: ALT 13 U/L (21-72); AST 18 U/L (17-59); Albumin 4.3 g/dL (3.5-5.0); Alkaline Phosphatase 78 U/L (38-126); Anion Gap 16 mmol/L; Blood Urea Nitrogen 6 mg/dL (9-20); Calcium 9.5 mg/dL (8.4-10.2); Carbon Dioxide 22 mmol/L (22-30); Chloride 106 mmol/L (98-107); Glucose 87 mg/dL (74-99); Sodium 144 mmol/L (137-145); Total Bilirubin 0.4 mg/dL (0.2-1.3); Total Protein 7.5 g/dL (6.3-8.2)
[2017-07-01 00:08] LABS: Alcohol 251 mg/dL
[2017-07-01 00:10] LABS: Amphetamine Screen,Urine Not Detected (NotDetected); Barbiturate Screen,Urine Not Detected (NotDetected); Benzodiazepines Screen,Urine Not Detected (NotDetected); Cocaine Screen,Urine Not Detected (NotDetected); Methadone Screen, Urine Not Detected (NotDetected); Opiate Screen,Urine Not Detected (NotDetected); Oxycodone Screen, Urine Not Detected (NotDetected); Phencyclidine Screen,Urine Not Detected (NotDetected); Tricyclic Antidepressant,Urine Not Detected (NotDetected); Urn Cannabinoid Scrn Not Detected (NotDetected)
[2017-07-01 00:13] LABS: Creatine Kinase 87 U/L (55-170)
[2017-07-01 00:26] LABS: Troponin I <0.012 ng/mL (0.000-0.034)
[2017-07-01 00:31] LABS: Basophils # (M) 0.05 k/uL (0-0.2); Eosinophils # (M) 0.05 k/uL (0-0.7); Lymphocytes # (M) 2.86 k/uL (1.0-4.8); Monocytes # (M) 0.53 k/uL (0-1.0); Neutrophils % (M) 34 %; Nucleated Red Blood Cells 0 /100 WBC (0-0); Total Cells Counted 100
[2017-07-01 07:15] VITALS: RESP 17
[2017-07-01 13:40] VITALS: BP 124/70; PULSE 69; TEMP 99.1
--- NOTE | 2017-07-03 05:45 | CDI ---
Documentation Clarification OP Dear Dr. Garry Anaya Please do addendum to ED report for missing Clinical impression. Thank you, Jennifer Scott Medical Transcription Editor If you have any questions, please contact [facility] at [phone] [facility]
== END 2017-07-01 13:40 | disposition home or self-care (01) ==
LOC: EC 22:57
DX: F32.9 Major depressive disorder, single episode, unspecified (principal); F10.120 Alcohol abuse with intoxication, uncomplicated; R45.851 Suicidal ideations; S00.03XA Contusion of scalp, initial encounter; M54.2 Cervicalgia; I25.2 Old myocardial infarction; F17.200 Nicotine dependence, unspecified, uncomplicated; Z79.82 Long term (current) use of aspirin; Z79.899 Other long term (current) drug therapy; W06.XXXA Fall from bed, initial encounter; Y92.009 Unspecified place in unspecified non-institutional (private) residence as the place of occurrence of the external cause; Y90.8 Blood alcohol level of 240 mg/100 ml or more
CPT/HCPCS: 36415; 70450; 71045; 72125; 72170; 80053; 80306; 80320; 81003; 82550; 82553; 84484; 85025; 85610; 85730; 86850; 86900; 86901; 93005; 96360; 96361; 99285

== ENCOUNTER 2017-11-12 00:40 | Observation (INO) | payer OTHER ==
[2017-11-12 01:13] LABS: Basophils # (A) 0.1 k/uL (0-0.2); Basophils % (A) 1 %; Eosinophils # (A) 0.3 k/uL (0-0.7); Eosinophils % (A) 5 %; HCT 44.2 % (39.0-53.0); HGB 14.7 gm/dL (13.0-17.5); Lymphocytes # (A) 3.7 k/uL (1.0-4.8); Lymphocytes % (A) 67 %; MCH 32.8 pg (25.0-35.0); MCHC 33.4 g/dL (31.0-37.0); MCV 98.4 fL (80.0-100.0); Monocytes # (A) 0.5 k/uL (0-1.0); Monocytes % (A) 9 %; Neutrophils # (A) 0.8 k/uL (1.3-7.7); Neutrophils % (A) 15 %; Platelet Count 166 k/uL (150-450); RBC 4.49 m/uL (4.30-5.90); RDW 14.4 % (11.5-15.5); WBC 5.5 k/uL (3.8-10.6)
[2017-11-12 01:23] LABS: Partial Thromboplastin Time 25.2 sec (22.0-30.0); Prothrombin Time 9.8 sec (9.0-12.0)
[2017-11-12 01:26] LABS: ALT 25 U/L (21-72); AST 36 U/L (17-59); Albumin 4.6 g/dL (3.5-5.0); Alkaline Phosphatase 62 U/L (38-126); Anion Gap 11 mmol/L; Blood Urea Nitrogen 7 mg/dL (9-20); Calcium 9.1 mg/dL (8.4-10.2); Carbon Dioxide 22 mmol/L (22-30); Chloride 110 mmol/L (98-107); Glucose 89 mg/dL (74-99); Magnesium 2.4 mg/dL (1.6-2.3); Potassium 4.1 mmol/L (3.5-5.1); Sodium 143 mmol/L (137-145); Total Bilirubin 0.4 mg/dL (0.2-1.3); Total Protein 7.8 g/dL (6.3-8.2)
--- NOTE | 2017-11-12 01:28 | XR ---
EXAMINATION TYPE: XR chest 2V DATE OF EXAM: 11/12/2017 COMPARISON: 06/30/2017 HISTORY: Chest pain TECHNIQUE: Frontal and lateral views of the chest are obtained. FINDINGS: Heart and mediastinum are normal. Lungs are clear of infiltrate. Costophrenic angles are c lear. There are chest leads. Bony thorax is intact. IMPRESSION: No active cardiopulmonary disease. No change.
[2017-11-12 01:38] LABS: Alcohol 328 mg/dL; Creatine Kinase 102 U/L (55-170)
[2017-11-12 01:51] LABS: Creatine Kinase MB 0.9 ng/mL (0.0-2.4); Troponin I <0.012 ng/mL (0.000-0.034)
--- NOTE | 2017-11-12 01:53 | ED ---
General Adult HPI - General Chief complaint: Chest Pain Stated complaint: Chest Pain, ETOH Time Seen by Provider: 11/12/17 01:02 Source: patient, EMS Mode of arrival: EMS Limitations: no limitations - History of Present Illness Initial comments: Olayinka is a 56-year-old alcoholic male with a past medical history of COPD and CAD who presents to the ED today for evaluation of chest pain. Patient reports he was drinking alcohol, he states that he was sitting on his couch when he developed a left-sided chest pain and some associated nausea and diaphoresis. He did not take any home nitro and came to the ER for further evaluation. Patient states that he had similar symptoms 2 years ago at the time he had a heart attack. Patient states that since his heart attack he has not followed up with a recreation assistant. He states that he cannot recall the name of his primary care physician he hasn't seen a doctor in a while. She reports that he drinks alcohol regularly. He is a pack-a-day smoker. - Related Data Home Medications Medication Instructions Recorded Confirmed Aspirin EC [Ecotrin Low Dose] 81 mg PO DAILY 03/12/16 01/03/17 Gabapentin [Neurontin] 300 mg PO BID 03/12/16 01/03/17 Ibuprofen [Motrin] 800 mg PO TID PRN 03/12/16 01/03/17 QUEtiapine FUMARATE [Seroquel Xr] 300 mg PO HS 03/12/16 01/03/17 Previous Rx's Medication Instructions Recorded Atorvastatin [Lipitor] 20 mg PO HS #30 tab 02/04/16 Cilostazol [Pletal] 100 mg PO BID #30 tab 02/04/16 Cyanocobalamin [Vitamin B-12] 1,000 mcg PO DAILY #30 tab 02/04/16 Ergocalciferol [Vitamin D2 50,000 unit PO Q7D #7 cap 02/04/16 (DRISDOL)] Escitalopram [Lexapro] 20 mg PO DAILY #30 tab 02/04/16 Nitroglycerin Sl Tabs [Nitrostat] 0.4 mg SUBLINGUAL Q5M PRN #30 tab 02/04/16 traZODone HCL [Desyrel] 100 mg PO HS #30 tab 02/04/16 Ibuprofen [Motrin] 600 mg PO Q6HR PRN #20 tab 03/27/16 Sulfamethox-Tmp 800-160Mg [Bactrim 2 each PO Q12HR #28 tab 11/17/16 Ds] HYDROcodone/APAP 5-325MG [[place] 1 tab PO Q6HR PRN #20 tab 01/03/17 5-325] Hydrocodone/Acetaminophen [[place] 1 tab PO Q6HR PRN #15 tab 01/03/17 5-325] Allergies Allergy/AdvReac Type Severity Reaction Status Date / Time No Known Allergies Allergy Verified 11/12/17 00:55 Review of Systems ROS Statement: Those systems with pertinent positive or pertinent negative responses have been documented in the HPI. ROS Other: All systems not noted in ROS Statement are negative. Past Medical History Past Medical History: Chest Pain / Angina, COPD, Deep Vein Thrombosis (DVT), Hyperlipidemia, Myocardial Infarction ([place]), Osteoarthritis (OA), Pulmonary Embolus ([place]) Additional Past Medical History / Comment(s): 02/15/15 PT brought to [facility] ER by police after being apprehended for arrest warrants. Admitted for atypical chest pain, depression, ETOH intoxication , abdominal pain, chest wall pain. Admission on 12/22/14 for L leg pain-possibly muscular skeletal, L sided chest pain possible muscular skeletal with negative dobutamine stress test and hyponatremia. HX: dvt lt lower leg, pe 02-01-13, gout, linh inguinal hernias, psoriases, fx rt hand, occ vertigo. pt is edentulous, L forearm scars from suicide attempts, normocytic anemia, DJD. Last Myocardial Infarction Date:: early History of Any Multi-Drug Resistant Organisms: None Reported Past Surgical History: Orthopedic Surgery Additional Past Surgical History / Comment(s): orif lt leg plate/screws have since been removed. Past Anesthesia/Blood Transfusion Reactions: No Reported Reaction Past Psychological History: Anxiety, Depression Smoking Status: Current every day smoker Past Alcohol Use History: Abuse, Daily, Heavy Past Drug Use History: None Reported - Past Family History Brother(s) Additional Family Medical History / Comment(s): He has 3 brothers with no major medical problems. Patient does not have any sisters. He has 4 children are apparently okay. Father Family Medical History: Myocardial Infarction ([place]) Additional Family Medical History / Comment(s): in his 60's [place] Mother Family Medical History: Myocardial Infarction ([place]) Additional Family Medical History / Comment(s): in her 60's [place] General Exam Limitations: altered mental status (Alcohol intoxication) General appearance: alert, appears intoxicated Head exam: Present: atraumatic, normocephalic Eye exam: Present: normal appearance, PERRL ENT exam: Present: mucous membranes dry Neck exam: Present: normal inspection Respiratory exam: Absent: respiratory distress Cardiovascular Exam: Present: regular rate, normal rhythm GI/Abdominal exam: Absent: soft, distended Rectal exam: Present: deferred Extremities exam: Present: normal capillary refill. Absent: pedal edema Back exam: Present: normal inspection Neurological exam: Present: alert, other (Speech is slurred, patient is oriented to person, place, day and events leading up to hospitalization.) Psychiatric exam: Present: flat affect Skin exam: Present: warm, dry Course Vital Signs 11/12/17 11/12/17 11/12/17 00:52 01:54 03:39 Temperature 97.7 F 97.2 F L Pulse Rate 81 65 67 Respiratory 16 14 16 Rate Blood Pressure 143/89 108/68 113/69 O2 Sat by Pulse 98 93 L 100 Oximetry Medical Decision Making - Medical Decision Making The patient was seen and evaluated, clinically the patient appears to be intoxicated and he does admit to drinking alcohol SHEENT complaining of pressure-like chest pain similar to previous heart attacks patient with significant history of coronary artery disease, in the past , current smoker, no cardiology follow-up from previous [place] A cardiac Workup was ordered EKG at 12:45 AM, normal sinus rhythm, rate is 85, normal axis, normal intervals , GA 154, QRS is 84, QTC is 456, her no acute ST elevations or depressions no evidence of acute ischemia, infarction or arrhythmia. Patient noted to fall asleep but wakes to voice and is appropriate. States that he doesn't feel good but is nonspecific. Patient noted to have an episode of nonbloody nonbilious emesis on the ER Chest x-ray with no acute pathology Labs unremarkable, troponin not elevated Heart score is 4 Considering the patient's multiple comorbidities, age, male gender, failure to follow-up I do feel he is high risk and requires further evaluation by cardiology. Patient care was discussed with medicine emergency response officer Dr. Dempsey who accepts the patient his service with consult cardiology. Admission orders were placed. - Lab Data Result diagrams: 11/12/17 00:45 11/12/17 00:45 Lab Results 11/12/17 11/12/17 11/12/17 Range/Units 00:45 00:45 00:45 WBC 5.5 (3.8-10.6) k/uL RBC 4.49 (4.30-5.90) m/uL Hgb 14.7 (13.0-17.5) gm/dL Hct 44.2 (39.0-53.0) % MCV 98.4 (80.0-100.0) fL MCH 32.8 (25.0-35.0) pg MCHC 33.4 (31.0-37.0) g/dL RDW 14.4 (11.5-15.5) % Plt Count 166 (150-450) k/uL Neutrophils % 15 % Lymphocytes % 67 % Monocytes % 9 % Eosinophils % 5 % Basophils % 1 % Neutrophils # 0.8 L (1.3-7.7) k/uL Lymphocytes # 3.7 (1.0-4.8) k/uL Monocytes # 0.5 (0-1.0) k/uL Eosinophils # 0.3 (0-0.7) k/uL Basophils # 0.1 (0-0.2) k/uL Manual Slide Review Performed RBC Morphology Normal PT 9.8 (9.0-12.0) sec INR 1.0 (<1.2) APTT 25.2 (22.0-30.0) sec D-Dimer (<0.60) mg/L FEU Sodium 143 (137-145) mmol/L Potassium 4.1 (3.5-5.1) mmol/L Chloride 110 H (98-107) mmol/L Carbon Dioxide 22 (22-30) mmol/L Anion Gap 11 mmol/L BUN 7 L (9-20) mg/dL Creatinine 1.00 (0.66-1.25) mg/dL Est GFR (CKD-EPI)AfAm >90 (>60 ml/min/1.73 sqM) Est GFR (CKD-EPI)NonAf 84 (>60 ml/min/1.73 sqM) Glucose 89 (74-99) mg/dL Calcium 9.1 (8.4-10.2) mg/dL Magnesium 2.4 H (1.6-2.3) mg/dL Total Bilirubin 0.4 (0.2-1.3) mg/dL AST 36 (17-59) U/L ALT 25 (21-72) U/L Alkaline Phosphatase 62 (38-126) U/L Total Creatine Kinase (55-170) U/L CK-MB (CK-2) (0.0-2.4) ng/mL CK-MB (CK-2) Rel Index Troponin I (0.000-0.034) ng/mL Total Protein 7.8 (6.3-8.2) g/dL Albumin 4.6 (3.5-5.0) g/dL Serum Alcohol 328 mg/dL 11/12/17 11/12/17 Range/Units 00:45 00:45 WBC (3.8-10.6) k/uL RBC (4.30-5.90) m/uL Hgb (13.0-17.5) gm/dL Hct (39.0-53.0) % MCV (80.0-100.0) fL MCH (25.0-35.0) pg MCHC (31.0-37.0) g/dL RDW (11.5-15.5) % Plt Count (150-450) k/uL Neutrophils % % Lymphocytes % % Monocytes % % Eosinophils % % Basophils % % Neutrophils # (1.3-7.7) k/uL Lymphocytes # (1.0-4.8) k/uL Monocytes # (0-1.0) k/uL Eosinophils # (0-0.7) k/uL Basophils # (0-0.2) k/uL Manual Slide Review RBC Morphology PT (9.0-12.0) sec INR (<1.2) APTT (22.0-30.0) sec D-Dimer 0.68 H (<0.60) mg/L FEU Sodium (137-145) mmol/L Potassium (3.5-5.1) mmol/L Chloride (98-107) mmol/L Carbon Dioxide (22-30) mmol/L Anion Gap mmol/L BUN (9-20) mg/dL Creatinine (0.66-1.25) mg/dL Est GFR (CKD-EPI)AfAm (>60 ml/min/1.73 sqM) Est GFR (CKD-EPI)NonAf (>60 ml/min/1.73 sqM) Glucose (74-99) mg/dL Calcium (8.4-10.2) mg/dL Magnesium (1.6-2.3) mg/dL Total Bilirubin (0.2-1.3) mg/dL AST (17-59) U/L ALT (21-72) U/L Alkaline Phosphatase (38-126) U/L Total Creatine Kinase 102 (55-170) U/L CK-MB (CK-2) 0.9 (0.0-2.4) ng/mL CK-MB (CK-2) Rel Index 0.9 Troponin I <0.012 (0.000-0.034) ng/mL Total Protein (6.3-8.2) g/dL Albumin (3.5-5.0) g/dL Serum Alcohol mg/dL Disposition Clinical Impression: Chest pain Disposition: ADMITTED IP TO THIS HOSP
[2017-11-12] MEDS ORDERED: NITROGLYCERIN SL TABS 0.4 MG TAB SUBLINGUAL PRN (02:50)
[2017-11-12] MEDS ORDERED: THIAMINE 100 MG/ML 2 ML VIAL IM STA (03:21)
[2017-11-12] MEDS ORDERED: LORazepam 2 MG/ML INJ IV PRN ×3 (03:21)
--- NOTE | 2017-11-12 03:22 | P.HPIM ---
History of Present Illness H&P Date: 11/12/17 Chief Complaint: Chest pain The patient is a 56-year-old male with a past medical history of chronic alcoholism, COPD who continues to smoke Who presents to the ER via EMS with chief complaint of chest pain. The patient reports he was drinking alcohol reports having 3 drinks this evening at some point developed left-sided chest pain with some radiation into his left upper extremity described as numbness tingling with associated nausea and shortness of breath and diaphoresis. The patient reports being previously diagnosed with a heart attack but has not had adequate follow-up with his music minister. Patient also complains of left lower extremity paresthesias and reports that he was seen by specialist and was told that he had sciatica and possibly a pinched nerve in his back. On exam the patient is somnolent but arousable. In the ER the patient had preoperative workup was noted to be in acute alcohol intoxication with a serum alcohol level of 328. His EKG was negative for any suggestion of acute ischemia and his troponin was less than 0.012. Chest x-ray showed no acute cardiopulmonary disease Review of Systems Those systems with pertinent positive or pertinent negative responses have been documented in the HPI. ROS Other: All systems not noted in ROS Statement are negative. Past Medical History Past Medical History: Chest Pain / Angina, COPD, Deep Vein Thrombosis (DVT), Hyperlipidemia, Myocardial Infarction ([place]), Osteoarthritis (OA), Pulmonary Embolus ([place]) Additional Past Medical History / Comment(s): 02/15/15 PT brought to [facility] ER by police after being apprehended for arrest warrants. Admitted for atypical chest pain, depression, ETOH intoxication , abdominal pain, chest wall pain. Admission on 12/22/14 for L leg pain-possibly muscular skeletal, L sided chest pain possible muscular skeletal with negative dobutamine stress test and hyponatremia. HX: dvt lt lower leg, pe 02-01-13, gout, linh inguinal hernias, psoriases, fx rt hand, occ vertigo. pt is edentulous, L forearm scars from suicide attempts, normocytic anemia, DJD. Last Myocardial Infarction Date:: early History of Any Multi-Drug Resistant Organisms: None Reported Past Surgical History: Orthopedic Surgery Additional Past Surgical History / Comment(s): orif lt leg plate/screws have since been removed. Past Anesthesia/Blood Transfusion Reactions: No Reported Reaction Past Psychological History: Anxiety, Depression Smoking Status: Current every day smoker Past Alcohol Use History: Abuse, Daily, Heavy Past Drug Use History: None Reported - Past Family History Brother(s) Additional Family Medical History / Comment(s): He has 3 brothers with no major medical problems. Patient does not have any sisters. He has 4 children are apparently okay. Father Family Medical History: Myocardial Infarction ([place]) Additional Family Medical History / Comment(s): in his 60's [place] Mother Family Medical History: Myocardial Infarction ([place]) Additional Family Medical History / Comment(s): in her 60's [place] Medications and Allergies Home Medications Medication Instructions Recorded Confirmed Type Atorvastatin [Lipitor] 20 mg PO HS #30 tab 02/04/16 01/03/17 Rx Cilostazol [Pletal] 100 mg PO BID #30 tab 02/04/16 01/03/17 Rx Cyanocobalamin [Vitamin B-12] 1,000 mcg PO DAILY #30 tab 02/04/16 01/03/17 Rx Ergocalciferol [Vitamin D2 50,000 unit PO Q7D #7 cap 02/04/16 01/03/17 Rx (DRISDOL)] Escitalopram [Lexapro] 20 mg PO DAILY #30 tab 02/04/16 01/03/17 Rx Nitroglycerin Sl Tabs [Nitrostat] 0.4 mg SUBLINGUAL Q5M PRN #30 tab 02/04/1607/17 Rx traZODone HCL [Desyrel] 100 mg PO HS #30 tab 02/04/16 01/03/17 Rx Aspirin EC [Ecotrin Low Dose] 81 mg PO DAILY 03/12/16 01/03/17 History Gabapentin [Neurontin] 300 mg PO BID 03/12/16 01/03/17 History Ibuprofen [Motrin] 800 mg PO TID PRN 03/12/16 01/03/17 History QUEtiapine FUMARATE [Seroquel Xr] 300 mg PO HS 03/12/16 01/03/17 History Ibuprofen [Motrin] 600 mg PO Q6HR PRN #20 tab 03/27/16 01/03/17 Rx Sulfamethox-Tmp 800-160Mg [[place] 2 each PO Q12HR #28 tab 11/17/16 01/03/17 Rx Ds] HYDROcodone/APAP 5-325MG [[place] 1 tab PO Q6HR PRN #20 tab 01/03/17 Rx 5-325] Hydrocodone/Acetaminophen [[place] 1 tab PO Q6HR PRN #15 tab 01/03/17 Rx 5-325] Allergies Allergy/AdvReac Type Severity Reaction Status Date / Time No Known Allergies Allergy Verified 11/12/17 00:55 Physical Exam Vitals: Vital Signs Temp Pulse Resp BP Pulse Ox 11/12/17 01:54 65 14 108/68 93 L 11/12/17 00:52 97.7 F 81 16 143/89 98 Intake and Output 11/11/17 11/11/17 11/12/17 14:59 22:59 06:59 Other: Weight 77.111 kg Constitutional: No acute distress, unkempt, disheveled Eyes: Anicteric sclerae, moist conjunctiva, no lid-lag, PERRLA ENMT: NC/AT,Oropharynx clear, no erythema, exudates Neck:Supple, FROM, no masses, or JVD, No carotid bruits; No thyromegaly Lungs: Clear to auscultation, Clear to percussion, Normal respiratory effort, no accessory muscle use Cardiovascular: Heart regular in rate and rhythm, No murmurs, gallops, or rubs no peripheral edema Abdominal: Soft Nontender, nom distended, no guarding, no rebound or rigidity, Normoactive bowel sounds No hepatomegaly, No splenomegaly, No palpable mass No abdominal wall hernia noted Skin: Normal temperature, tone, texture, turgor, No induration No subcutaneous nodules, No rash, lesions, No ulcers Extremities:No digital cyanosis No clubbing, Pedal pulses intact and symmetrical Radial pulses intact and symmetrical Normal gait and station, No calf tenderness Psychiatric: Flat affect, poor eye contact, disheveled denies any A/V hallucinations, Neuro: Muscles Strength 5/5 in all 4 extremities, Sensation to light touch grossly present throughout, Cranial nerves II-XII grossly intact. No focal sensory deficits Results CBC & Chem 7: 11/12/17 00:45 11/12/17 00:45 Labs: Abnormal Lab Results - Last 24 Hours (Table) 11/12/17 11/12/17 Range/Units 00:45 00:45 Neutrophils # 0.8 L (1.3-7.7) k/uL Chloride 110 H (98-107) mmol/L BUN 7 L (9-20) mg/dL Magnesium 2.4 H (1.6-2.3) mg/dL Assessment and Plan (1) Chest pain Current Visit: No Status: Acute Code(s): R07.9 - CHEST PAIN, UNSPECIFIED SNOMED Code(s): 87865268 (2) Essential hypertension Current Visit: Yes Status: Acute Code(s): I10 - ESSENTIAL (PRIMARY) HYPERTENSION SNOMED Code(s): 33887515 (3) Alcohol intoxication Current Visit: No Status: Acute Code(s): F10.129 - ALCOHOL ABUSE WITH INTOXICATION, UNSPECIFIED SNOMED Code(s): 85712174 (4) COPD (chronic obstructive pulmonary disease) Current Visit: No Status: Acute Code(s): J44.9 - CHRONIC OBSTRUCTIVE PULMONARY DISEASE, UNSPECIFIED SNOMED Code(s): 60531561 Plan: The patient is this in observation anticipate a less than 2 midnight stay with atypical chest pain occurring during an apparent alcoholic binge. Patient is acutely intoxicated. EKG and cardiac enzymes are negative for any suggestion of acute ischemia, patient reports history of MS. I'll plan to sequentially trend cardiac markers,initiate routine chest pain orders. Plan to continue aspirin, statin therapy, order nuclear stress test and follow-up cardiology recommendations. We'll plan to hydrate the patient And start symptom triggered alcohol withdrawal CIWA protocol. Patient is placed on Lovenox for DVT prophylaxis
[2017-11-12] MEDS ORDERED: SODIUM CHLORIDE 0.9% 1,000 ML IV ONE (03:30)
[2017-11-12] MEDS ORDERED: SODIUM CHLORIDE 0.9% 1,000 ML IV SCH (03:30)
[2017-11-12 03:57] VITALS: TEMP 97.2
[2017-11-12 07:16] LABS: Creatine Kinase 90 U/L (55-170)
[2017-11-12 07:27] LABS: Creatine Kinase MB 0.8 ng/mL (0.0-2.4); Troponin I <0.012 ng/mL (0.000-0.034)
[2017-11-12] MEDS ORDERED: ESCITALOPRAM 20 MG TAB PO SCH (09:00)
[2017-11-12] MEDS ORDERED: GABAPENTIN 300 MG CAP PO SCH (09:00)
[2017-11-12] MEDS ORDERED: ENOXAPARIN 40 MG/0.4 ML SYRINGE SQ SCH (09:00)
--- NOTE | 2017-11-12 09:06 | P.CRDCN ---
History of Present Illness Consult date: 11/12/17 Chief complaint: Chest discomfort History of present illness: This is a pleasant 56-year-old gentleman with a past medical history significant for smoking as well as alcohol abuse who last time drinks alcohol was yesterday when he took 4 beers presented to the emergency room complaining of chest discomfort. He was in his usual state of fall total yesterday when he developed discomfort, in the mid of the chest, as a sharp kind of discomfort, with some radiation to the left arm. No associated symptoms of shortness of breath, dizziness or lightheadedness, or syncope. The patient alcohol level came in to be severe lead alleviated. Also the d-dimer came in to be abnormal. The patient is in process of having either a VQ scan or a computed tomography scan. The EKG showed sinus rhythm without any significant ST or T-wave abnormalities with a chest x-ray did not show any acute abnormalities. The patient does not have any history of coronary artery disease but he does have history of DVT and PE in the past. He was receiving anticoagulation but not at this point. Past Medical History Past Medical History: Chest Pain / Angina, COPD, Deep Vein Thrombosis (DVT), Hyperlipidemia, Myocardial Infarction ([place]), Osteoarthritis ([place]), Pulmonary Embolus ([place]) Additional Past Medical History / Comment(s): 02/15/15 PT brought to [facility] ER by police after being apprehended for arrest warrants. Admitted for atypical chest pain, depression, ETOH intoxication , abdominal pain, chest wall pain. Admission on 12/22/14 for L leg pain-possibly muscular skeletal, L sided chest pain possible muscular skeletal with negative dobutamine stress test and hyponatremia. HX: dvt lt lower leg, pe 02-01-13, gout, linh inguinal hernias, psoriases, fx rt hand, occ vertigo. pt is edentulous, L forearm scars from suicide attempts, normocytic anemia, DJD. Last Myocardial Infarction Date:: early History of Any Multi-Drug Resistant Organisms: None Reported Past Surgical History: Orthopedic Surgery Additional Past Surgical History / Comment(s): orif lt leg plate/screws have since been removed. Past Anesthesia/Blood Transfusion Reactions: No Reported Reaction Past Psychological History: Anxiety, Depression Smoking Status: Current every day smoker Past Alcohol Use History: Abuse, Daily, Heavy Past Drug Use History: None Reported - Past Family History Brother(s) Additional Family Medical History / Comment(s): He has 3 brothers with no major medical problems. Patient does not have any sisters. He has 4 children are apparently okay. Father Family Medical History: Myocardial Infarction ([place]) Additional Family Medical History / Comment(s): in his 60's [place] Mother Family Medical History: Myocardial Infarction ([place]) Additional Family Medical History / Comment(s): in her 60's [place] Medications and Allergies Home Medications Medication Instructions Recorded Confirmed Type Atorvastatin [Lipitor] 20 mg PO HS #30 tab 02/04/16 01/03/17 Rx Cilostazol [Pletal] 100 mg PO BID #30 tab 02/04/16 01/03/17 Rx Cyanocobalamin [Vitamin B-12] 1,000 mcg PO DAILY #30 tab 02/04/16 01/03/17 Rx Ergocalciferol [Vitamin D2 50,000 unit PO Q7D #7 cap 02/04/16 01/03/17 Rx (DRISDOL)] Escitalopram [Lexapro] 20 mg PO DAILY #30 tab 02/04/16 01/03/17 Rx Nitroglycerin Sl Tabs [Nitrostat] 0.4 mg SUBLINGUAL Q5M PRN #30 tab 02/04/1607/17 Rx traZODone HCL [Desyrel] 100 mg PO HS #30 tab 02/04/16 01/03/17 Rx Aspirin EC [Ecotrin Low Dose] 81 mg PO DAILY 03/12/16 01/03/17 History Gabapentin [Neurontin] 300 mg PO BID 03/12/16 01/03/17 History Ibuprofen [Motrin] 800 mg PO TID PRN 03/12/16 01/03/17 History QUEtiapine FUMARATE [Seroquel Xr] 300 mg PO HS 03/12/16 01/03/17 History Ibuprofen [Motrin] 600 mg PO Q6HR PRN #20 tab 03/27/16 01/03/17 Rx Sulfamethox-Tmp 800-160Mg [[place] 2 each PO Q12HR #28 tab 11/17/16 01/03/17 Rx Ds] HYDROcodone/APAP 5-325MG [[place] 1 tab PO Q6HR PRN #20 tab 01/03/17 Rx 5-325] Hydrocodone/Acetaminophen [[place] 1 tab PO Q6HR PRN #15 tab 01/03/17 Rx 5-325] Allergies Allergy/AdvReac Type Severity Reaction Status Date / Time No Known Allergies Allergy Verified 11/12/17 00:55 Physical Exam Vitals: Vital Signs Temp Pulse Resp BP Pulse Ox 11/12/17 07:19 100 11/12/17 07:00 64 18 104/59 100 11/12/17 03:39 97.2 F L 67 16 113/69 100 11/12/17 01:54 65 14 108/68 93 L 11/12/17 00:52 97.7 F 81 16 143/89 98 Intake and Output 11/11/17 11/12/17 11/12/17 22:59 06:59 14:59 Other: Weight 77.111 kg - Constitutional General appearance: no acute distress - Respiratory Respiratory: bilateral: CTA - Cardiovascular Rhythm: regular Heart sounds: normal: S1, S2 Abnormal Heart Sounds: systolic murmur Results 11/12/17 00:45 11/12/17 00:45 Cardiac Enzymes 11/12/17 11/12/17 11/12/17 Range/Units 00:45 00:45 06:19 AST 36 (17-59) U/L CK-MB (CK-2) 0.9 0.8 (0.0-2.4) ng/mL Troponin I <0.012 <0.012 (0.000-0.034) ng/mL Coagulation 11/12/17 Range/Units 00:45 PT 9.8 (9.0-12.0) sec APTT 25.2 (22.0-30.0) sec CBC 11/12/17 Range/Units 00:45 WBC 5.5 (3.8-10.6) k/uL RBC 4.49 (4.30-5.90) m/uL Hgb 14.7 (13.0-17.5) gm/dL Hct 44.2 (39.0-53.0) % Plt Count 166 (150-450) k/uL Comprehensive Metabolic Panel 11/12/17 Range/Units 00:45 Sodium 143 (137-145) mmol/L Potassium 4.1 (3.5-5.1) mmol/L Chloride 110 H (98-107) mmol/L Carbon Dioxide 22 (22-30) mmol/L BUN 7 L (9-20) mg/dL Creatinine 1.00 (0.66-1.25) mg/dL Glucose 89 (74-99) mg/dL Calcium 9.1 (8.4-10.2) mg/dL AST 36 (17-59) U/L ALT 25 (21-72) U/L Alkaline Phosphatase 62 (38-126) U/L Total Protein 7.8 (6.3-8.2) g/dL Albumin 4.6 (3.5-5.0) g/dL Current Medications Generic Name Dose Route Start Last Admin Trade Name Freq PRN Reason Stop Dose Admin Aminophylline 100 mg 11/12/17 11:00 Aminophylline IV 11/12/17 11:01 ONCE PRN Patient Response Aspirin 325 mg 11/13/17 09:00 Aspirin PO DAILY [facility] Atorvastatin Calcium 20 mg 11/12/17 21:00 Lipitor PO HS [facility] Enoxaparin Sodium 40 mg 11/12/17 09:00 Lovenox SQ DAILY [facility] Escitalopram Oxalate 20 mg 11/12/17 09:00 Lexapro PO DAILY [facility] Gabapentin 300 mg 11/12/17 09:00 Neurontin PO BID [facility] Sodium Chloride 1,000 mls @ 100 mls/hr 11/12/17 03:30 11/12/17 04:37 Saline 0.9% IV 100 mls/hr .Q10H LEIGH Administration Lorazepam 1 mg 11/12/17 03:21 Ativan IV Q2HR PRN CIWA 8 or 9 Lorazepam 1 mg 11/12/17 03:21 Ativan IV Q1HR PRN CIWA 10 to 15 Lorazepam 2 mg 11/12/17 03:21 Ativan IV 11/14/17 03:21 Q10M PRN CIWA 16 or higher Nitroglycerin 0.4 mg 11/12/17 02:50 Nitrostat SUBLINGUAL Q5M PRN Chest Pain Regadenoson 0.4 mg 11/12/17 11:00 Lexiscan IV 11/12/17 11:01 ONCE ONE Intake and Output 11/11/17 11/12/17 11/12/17 22:59 06:59 14:59 Other: Weight 77.111 kg 11/12/17 00:45 08/13/18 00:45 Assessment and Plan Assessment: Assessment #1 atypical chest discomfort #2 significant history of smoking #3 abnormal d-dimer #4 history of alcohol abuse Plan #1 the patient was ruled out for acute coronary event #2 he needs to have a computed tomography scan of the chest or VQ scan to rule out a PE in view of abnormal d-dimer #3 obtain an echocardiogram was Doppler #4 severe underlying CAD to be ruled out down the line. Thank you for allowing us participate in his care and we'll continue following up with the patient
--- NOTE | 2017-11-12 10:40 | ECHOF ---
Referral Reason:cp MEASUREMENTS -------- HEIGHT: 175.3 cm WEIGHT: 77.1 kg BP: IVSd: 0.9 cm (0.6 - 1.1) LVIDd: 4.0 cm (3.9 - 5.3) LVPWd: 1.3 cm (0.6 - 1.1) IVSs: 1.2 cm LVIDs: 3.3 cm LVPWs: 0.9 cm Ao Diam: 3.2 cm (2.0 - 3.7) AV Cusp: 1.9 cm (1.5 - 2.6) LA Diam: 3.1 cm (2.7 - 3.8) MV EXCURSION: 15.618 mm (> 18.000) MV EF SLOPE: 83 mm/s (70 - 150) EPSS: 1.0 cm MV E Jesus Alberto: 0.80 m/s MV DecT: 179 ms MV A Jesus Alberto: 0.68 m/s MV E/A Ratio: 1.18 RAP: 5.00 mmHg RVSP: 11.86 mmHg FINDINGS -------- Sinus rhythm. This was a technically good study. LV size, wall thickness and systolic function are normal, with an EF greater than 55%. The left bing tricular size is normal. The right ventricle is normal in size. The left atrial size is normal. The right atrial size is normal. There is mild aortic valve sclerosis. There is no evidence of aortic regurgitation. Mild mitral annular calcification present. Mild mitral regurgitation is present. Mild tricuspid regurgitation present. There is no evidence of pulmonary hypertension. The right v entricular systolic pressure, as measured by Doppler, is 11.86mmHg. There is no pulmonic regurgitation present. The aortic root size is normal. There is no pericardial effusion. CONCLUSIONS -------- 1. LV size, wall thickness and systolic function are normal, with an EF greater than 55%. 2. The left ventricular size is normal. 3. The right ventricle is normal in size. 4. The left atrial size is normal. 5. The right atrial size is normal. 6. There is mild aortic valve sclerosis. 7. Mild mitral annular calcification present. 8. Mild mitral regurgitation is present. 9. Mild tricuspid regurgitation present. 10. There is no evidence of pulmonary hypertension. 11. The right ventricular systolic pressure, as measured by Doppler, is 11.86mmHg. 12. There is no pulmonic regurgitation present. 13. The aortic root size is normal. 14. There is no pericardial effusion. INSULATION EXTRUDER OPERATOR: Alem Connolly RDCS
[2017-11-12] MEDS ORDERED: AMINOPHYLLINE 500 MG/20 ML VIAL IV PRN (11:00)
[2017-11-12] MEDS ORDERED: REGADENOSON 0.4 MG/5 ML SYRINGE IV ONE (11:00)
[2017-11-12 11:15] VITALS: BP 119/72; PULSE 58; RESP 17
[2017-11-12 13:07] LABS: Creatine Kinase 100 U/L (55-170)
[2017-11-12 13:19] LABS: Creatine Kinase MB 0.7 ng/mL (0.0-2.4); Troponin I <0.012 ng/mL (0.000-0.034)
[2017-11-12] MEDS ORDERED: ATORVASTATIN 20 MG TAB PO SCH (21:00)
[2017-11-13] MEDS ORDERED: ASPIRIN 325 MG TAB PO SCH (09:00)
== END 2017-11-12 12:45 | disposition left against medical advice (07) ==
LOC: EC 00:40 → 3OBS 02:52
PROVIDERS: ADMIT Family Medicine; ATTEND Family Medicine
DX: R07.89 Other chest pain (principal); F10.229 Alcohol dependence with intoxication, unspecified; R79.89 Other specified abnormal findings of blood chemistry; I10 Essential (primary) hypertension; J44.9 Chronic obstructive pulmonary disease, unspecified; E78.5 Hyperlipidemia, unspecified; M19.90 Unspecified osteoarthritis, unspecified site; F41.9 Anxiety disorder, unspecified; F32.9 Major depressive disorder, single episode, unspecified; F17.210 Nicotine dependence, cigarettes, uncomplicated; I25.2 Old myocardial infarction; R20.2 Paresthesia of skin; Y90.8 Blood alcohol level of 240 mg/100 ml or more; Z86.718 Personal history of other venous thrombosis and embolism; Z86.711 Personal history of pulmonary embolism; Z79.82 Long term (current) use of aspirin; Z79.899 Other long term (current) drug therapy; Z82.49 Family history of ischemic heart disease and other diseases of the circulatory system; Z91.5 Personal history of self-harm; M10.9 Gout, unspecified
CPT/HCPCS: 99285 ×2; 96360 ×2; 96372 ×3; 36415; 94760; 93005; 93306; 85379; 80053; 82550; 82553; 83735; 84484; 85025; 85610; 85730; 80320; 71046; G0378; J3411; J1650

== ENCOUNTER 2017-11-16 23:24 | Emergency (ER) | payer OTHER ==
[2017-11-16] MEDS ORDERED: ASPIRIN 81 MG PO STA (23:53)
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
[2017-11-17 00:16] LABS: HCT 40.4 % (39.0-53.0); MCH 33.6 pg (25.0-35.0); MCHC 34.6 g/dL (31.0-37.0); MCV 97.1 fL (80.0-100.0); Mean Platelet Volume 7.5; Platelet Count 127 k/uL (150-450); RBC 4.16 m/uL (4.30-5.90); RDW 14.1 % (11.5-15.5); WBC 3.9 k/uL (3.8-10.6)
[2017-11-17 00:23] LABS: ALT 27 U/L (21-72); AST 26 U/L (17-59); Albumin 4.2 g/dL (3.5-5.0); Alkaline Phosphatase 59 U/L (38-126); Anion Gap 11 mmol/L; Blood Urea Nitrogen 8 mg/dL (9-20); Calcium 9.3 mg/dL (8.4-10.2); Carbon Dioxide 20 mmol/L (22-30); Chloride 108 mmol/L (98-107); Glucose 88 mg/dL (74-99); Magnesium 2.2 mg/dL (1.6-2.3); Potassium 4.1 mmol/L (3.5-5.1); Sodium 139 mmol/L (137-145); Total Bilirubin 0.4 mg/dL (0.2-1.3); Total Protein 7.3 g/dL (6.3-8.2)
[2017-11-17 00:24] LABS: Creatine Kinase 117 U/L (55-170)
--- NOTE | 2017-11-17 00:24 | XR ---
EXAMINATION TYPE: XR chest 2V DATE OF EXAM: 11/17/2017 COMPARISON: NONE HISTORY: Chest pain TECHNIQUE: Frontal and lateral views of the chest are obtained. FINDINGS: Heart and mediastinum are normal. There is coarsening of interstitial markings. Costophren ic angles are clear. There are chest leads. Bony thorax is intact. IMPRESSION: Lung markings are increased slightly compared to old exam. No overt heart failure. [place] l heart.
--- NOTE | 2017-11-17 00:25 | XR ---
EXAMINATION TYPE: XR hand complete RT DATE OF EXAM: 11/17/2017 COMPARISON: NONE HISTORY: Right hand pain TECHNIQUE: 3 views FINDINGS: There is deformity of fifth metacarpal related to old healed fracture. I see no acute fract ure nor dislocation. Joint spaces are fairly normal. IMPRESSION: No acute abnormality of the right hand.
[2017-11-17 00:26] LABS: Partial Thromboplastin Time 23.9 sec (22.0-30.0); Prothrombin Time 9.6 sec (9.0-12.0)
[2017-11-17 00:37] LABS: Creatine Kinase MB 0.9 ng/mL (0.0-2.4); Troponin I <0.012 ng/mL (0.000-0.034)
[2017-11-17 00:38] LABS: Eosinophils # (M) 0.16 k/uL (0-0.7); Lymphocytes # (M) 2.42 k/uL (1.0-4.8); Monocytes # (M) 0.55 k/uL (0-1.0); Neutrophils # (M) 0.78 k/uL (1.3-7.7); Neutrophils % (M) 20 %; Nucleated Red Blood Cells 0 /100 WBC (0-0); Total Cells Counted 100
[2017-11-17 00:42] LABS: D-Dimer 0.66 mg/L FEU (<0.60)
[2017-11-17 01:24] VITALS: BP 144/80; PULSE 72; RESP 18
--- NOTE | 2017-11-17 01:41 | CT ---
EXAMINATION TYPE: CT angio chest DATE OF EXAM: 11/17/2017 1:21 AM COMPARISON: 05/2012 HISTORY: chest pain; elevated D-dimer CT DLP: 312.30 mGycm Automated exposure control for dose reduction was used. CONTRAST: CTA scan of the thorax is performed with IV Contrast, patient injected with 75 mL of Isovue 370, pulm onary embolism protocol. There are 3-D post processed images.. FINDINGS: There is mild groundglass interstitial pulmonary infiltrates in the mid and lower lung santoro. Heart size is normal. There is no pericardial effusion. There is no pleural effusion. There is no evidence of thoracic aortic aneurysm or dissection. Ascending aorta measures 3 cm. There are no filling defects in the pulmonary arteries. There are no hilar masses. There is no mediastinal adenopathy. Bony thorax is intact. There is spurring in the thoracic spine. IMPRESSION: NO EVIDENCE OF PULMONARY EMBOLISM. INTERSTITIAL PULMONARY DENSITY CONSISTENT WITH FIBROSIS THAT HAS P ROGRESSED COMPARED TO OLD EXAM. THERE IS CLEARING OF THE LOWER LOBE PULMONARY EMBOLI COMPARED TO OLD EXAM.
[2017-11-17 02:16] VITALS: TEMP 98.6
== END 2017-11-17 02:16 | disposition home or self-care (01) ==
LOC: EC 23:24
DX: S60.221A Contusion of right hand, initial encounter (principal); J84.89 Other specified interstitial pulmonary diseases; I26.99 Other pulmonary embolism without acute cor pulmonale; R07.89 Other chest pain; R06.02 Shortness of breath; R79.1 Abnormal coagulation profile; F10.129 Alcohol abuse with intoxication, unspecified; G62.9 Polyneuropathy, unspecified; M19.90 Unspecified osteoarthritis, unspecified site; F41.9 Anxiety disorder, unspecified; I25.2 Old myocardial infarction; F17.200 Nicotine dependence, unspecified, uncomplicated; Z79.82 Long term (current) use of aspirin; Z79.899 Other long term (current) drug therapy; Z59.0 Homelessness; Z82.49 Family history of ischemic heart disease and other diseases of the circulatory system; W22.8XXA Striking against or struck by other objects, initial encounter; Y93.89 Activity, other specified; Y92.009 Unspecified place in unspecified non-institutional (private) residence as the place of occurrence of the external cause
CPT/HCPCS: 36415; 93005; 85379; 83880; 80053; 82550; 82553; 83735; 84484; 85025; 85610; 85730; 87040; 73130; 71046; 71275; 99284; Q9967

== ENCOUNTER 2017-12-22 03:10 | Emergency (ER) | payer OTHER ==
[2017-12-22 03:20] VITALS: BP 140/82; PULSE 79; RESP 20; TEMP 97.6
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
[2017-12-22] MEDS ORDERED: MORPHINE SULFATE 4 MG/ML SYRINGE IM STA (03:51)
--- NOTE | 2017-12-22 04:13 | XR ---
PROCEDURE: FILM RIGHT WRIST HISTORY: 57-year-old male with right wrist pain. COMPARISON: None TECHNIQUE: Frontal, lateral, and oblique views of the right wrist were obtained. FINDINGS: Limited by positioning. Acute, mildly angulated fracture of the distal radius. There is adjacent soft tissue swelling. Joint spaces are preserved. Punctate and linear soft tissue calcifications likely represent atherosclerotic changes. IMPRESSION: Acute, mildly angulated fracture of the distal radius. [employer] 12/22/17 04:34 Verify Receipt Verified receipt with Dr. Sigala on 12/22 04:34 (-04:00)
== END 2017-12-22 04:19 | disposition home or self-care (01) ==
LOC: EC 03:10 → SUPCPDRO 03:10 → EC 04:19
DX: S52.501A Unspecified fracture of the lower end of right radius, initial encounter for closed fracture (principal); G62.9 Polyneuropathy, unspecified; M19.90 Unspecified osteoarthritis, unspecified site; F41.9 Anxiety disorder, unspecified; I25.2 Old myocardial infarction; F17.200 Nicotine dependence, unspecified, uncomplicated; Z79.82 Long term (current) use of aspirin; Z79.899 Other long term (current) drug therapy; V58.6XXA Passenger in pick-up truck or van injured in noncollision transport accident in traffic accident, initial encounter; Y93.89 Activity, other specified; Y92.009 Unspecified place in unspecified non-institutional (private) residence as the place of occurrence of the external cause
CPT/HCPCS: 73110; 99283; 96372; 29125; J2270

== ENCOUNTER 2018-06-07 04:33 | Emergency (ER) | payer OTHER ==
[2018-06-07 04:41] VITALS: RESP 18
[2018-06-07] MEDS ORDERED: diphenhydrAMINE 50 MG/ML 1 ML VIAL IVP STA (04:58)
[2018-06-07] MEDS ORDERED: FAMOTIDINE 20 MG/2 ML VIAL IV STA (04:58)
[2018-06-07] MEDS ORDERED: DEXAMETHASONE SOD PHOSPHATE 10 MG/ML 1 ML VIAL IV STA (04:58)
--- NOTE | 2018-06-07 05:05 | ED ---
General Adult HPI - General Chief complaint: Allergic Reaction Stated complaint: Eye Problems Time Seen by Provider: 06/07/18 04:42 Source: patient Mode of arrival: ambulatory Limitations: no limitations - History of Present Illness Initial comments: Dictation was produced using [employer] dictation software. please excuse any grammatical, word or spelling errors. Chief Complaint: 57-year-old male presents with skin rash after application of hair dye. History of Present Illness: Patient is a 57-year-old male. Approximately 5 days ago he applied a hair dye to his hair and oriented to make his hair. More black. Patient states he had long black hair. Initially it looked fine however he began having burning sensation in weeping skin medially after application. Patient states that symptoms have persisted and spread to his forehead and his eyelids. Patient denies any vision changes. Patient states he didn't shave his head aching it might help his symptoms. He was at home today when his told him to come to the emergency department to get checked out. Patient denies any pain. No constitutional symptoms. The ROS documented in this emergency department record has been reviewed and confirmed by me. Those systems with pertinent positive or negative responses have been documented in the HPI. All other systems are other negative and/or noncontributory. PHYSICAL EXAM: General Impression: Alert and oriented x3, not in acute distress HEENT: Skin breakdown over the entire head, weeping, swelling to the upper and lower eyelids Cardiovascular: Heart regular rate and rhythm, S1&S2 audible, no murmurs, rubs or gallops Chest: Lungs clear to auscultation bilaterally, no rhonchi, no wheeze, no rales Abdomen: Bowel sounds present, abdomen soft, non-tender, non-distended, no organomegaly Musculoskeletal: Pulses present and equal in all extremities, no peripheral edema Motor: Power 5/5 bilaterally, no focal deficits noted Neurological: CN II-XII grossly intact, no focal motor or sensory deficits noted Skin: Intact with no visualized rashes Psych: Normal affect and mood ED course: 57 yo male with clinical presentation consistent with acute ALLERGIC contact dermatitis secondary to hair dye. Vital signs upon arrival are within acceptable limits. Patient not showing any signs of acute respiratory distress. Patient treated with Benadryl, Pepcid and Decadron. Decrease with patient that treatment will likely involve several days of steroid treatment requiring taper. Patient does not have a primary care physician. Stressed importance to patient that he will require intensive steroid monitoring with taper to treat his symptoms. Patient told that he is unable to follow-up with primary care physician to come to the emergency department in one week for guidance with his steroid therapy. Plan is to provide patient's with 60 mg of prednisone for 7 days followed by 30 mg of prednisone for 5 days and then tapered over the next 2 weeks. Patient understands and verbalizes understanding. Patient given referral to primary care physician Dr. Hi. Patient understandable agreeable to disposition. - Related Data Home Medications Medication Instructions Recorded Confirmed Aspirin EC [Ecotrin Low Dose] 81 mg PO DAILY 03/12/16 11/16/17 Gabapentin [Neurontin] 300 mg PO BID 03/12/16 11/16/17 Ibuprofen [Motrin] 800 mg PO TID PRN 03/12/16 11/16/17 Cholecalciferol [Vitamin D3] 5,000 unit PO DAILY 11/12/17 11/16/17 Previous Rx's Medication Instructions Recorded Atorvastatin [Lipitor] 20 mg PO HS #30 tab 02/04/16 Cilostazol [Pletal] 100 mg PO BID #30 tab 02/04/16 Cyanocobalamin [Vitamin B-12] 1,000 mcg PO DAILY #30 tab 02/04/16 Nitroglycerin Sl Tabs [Nitrostat] 0.4 mg SUBLINGUAL Q5M PRN #30 tab 02/04/16 predniSONE 60 mg PO DAILY 7 Days #21 tab 06/07/18 Allergies Allergy/AdvReac Type Severity Reaction Status Date / Time No Known Allergies Allergy Verified 06/07/18 04:41 Review of Systems ROS Statement: Those systems with pertinent positive or pertinent negative responses have been documented in the HPI. ROS Other: All systems not noted in ROS Statement are negative. Past Medical History Past Medical History: Chest Pain / Angina, COPD, Deep Vein Thrombosis (DVT), Hyperlipidemia, Myocardial Infarction ([place]), Osteoarthritis (OA), Prostate Disorder, Pulmonary Embolus ([place]) Additional Past Medical History / Comment(s): ETOH abuse, homeless, L lower leg DVT, 02/01/13 pulmonary embolism, chronic low back pain, past R arm fractures, DJD, bilateral inguinal hernias, psoriasis, normocytic anemia, pt states prostrate disease but not sure what type, PAD, bilateral leg/feet neuropathy,vertigo at times, insomnia. Last Myocardial Infarction Date:: early History of Any Multi-Drug Resistant Organisms: None Reported Past Surgical History: Orthopedic Surgery Additional Past Surgical History / Comment(s): orif lt hip plate/screws have since been removed. Past Anesthesia/Blood Transfusion Reactions: No Reported Reaction Past Psychological History: Anxiety, Depression Smoking Status: Current every day smoker Past Alcohol Use History: Daily, Occasional Past Drug Use History: None Reported - Past Family History Brother(s) Family Medical History: No Reported History Additional Family Medical History / Comment(s): He has 3 brothers with no major medical problems. Patient does not have any sisters. He has 4 children are apparently okay. Father Family Medical History: Myocardial Infarction ([place]) Additional Family Medical History / Comment(s): in his 60's [place] Mother Family Medical History: Myocardial Infarction ([place]) Additional Family Medical History / Comment(s): in her 60's [place] General Exam Limitations: no limitations Course Vital Signs 06/07/18 04:35 Temperature 97.8 F Pulse Rate 82 Respiratory 18 Rate Blood Pressure 144/86 O2 Sat by Pulse 97 Oximetry Disposition Clinical Impression: Allergic contact dermatitis Disposition: HOME SELF-CARE Condition: Good Instructions (If sedation given, give patient instructions): Contact Dermatitis (ED) Additional Instructions: follow up with PCP for outpatient guidance to steroid therapy. if unable to make it to Dr. Hi, return to the emergency department in 1 week for assistance with steroid treatment. Prescriptions: predniSONE 60 mg PO DAILY 7 Days #21 tab Is patient prescribed a controlled substance at d/c from ED?: No Referrals: None,Stated [Primary Care Provider] - 1-2 days Arnulfo Hi MD [REFERRING] - 1-2 days Time of Disposition: 05:39
[2018-06-07 05:54] VITALS: BP 148/55; PULSE 72; TEMP 98.4
--- NOTE | 2018-06-10 01:06 | CDI ---
Documentation Clarification OP Dear Krish DUGGAN, DO Please do addendum to ED report for missing Physical examination. Thank you, Jennifer Scott Manager Compliance If you have any questions, please contact Coding Tech at [phone] [facility]
== END 2018-06-07 05:53 | disposition home or self-care (01) ==
LOC: EC 04:33
DX: T65.6X1A Toxic effect of paints and dyes, not elsewhere classified, accidental (unintentional), initial encounter (principal); L23.4 Allergic contact dermatitis due to dyes; I25.2 Old myocardial infarction; F17.200 Nicotine dependence, unspecified, uncomplicated; Z79.82 Long term (current) use of aspirin; Z79.899 Other long term (current) drug therapy
CPT/HCPCS: 99282; 96374; 96375 ×2; J1200; J1100

== ENCOUNTER 2018-06-14 13:54 | Emergency (ER) | payer OTHER ==
[2018-06-14 14:18] VITALS: BP 144/74; PULSE 72; RESP 18; TEMP 98.7
--- NOTE | 2018-06-14 15:03 | ED ---
General Adult HPI - General Chief complaint: Recheck/Abnormal Lab/Rx Stated complaint: needs steroid shot-revist Time Seen by Provider: 06/14/18 14:40 Source: patient, RN notes reviewed Mode of arrival: ambulatory Limitations: no limitations - History of Present Illness Initial comments: 57-year-old male presented for ALLERGIC reaction/contact dermatitis. Patient was seen in emergency from was given 60 mg of steroids for one week and advised to return after that 1 week for a tapering dose. Patient states he ALLERGIC reaction secondary to hair dye. Patient states symptoms have improved he has continuation of the rash and scaling of the skin. Patient states it's itchy at times. Patient offers no other complaints. - Related Data Home Medications Medication Instructions Recorded Confirmed Aspirin EC [Ecotrin Low Dose] 81 mg PO DAILY 03/12/16 11/16/17 Gabapentin [Neurontin] 300 mg PO BID 03/12/16 11/16/17 Ibuprofen [Motrin] 800 mg PO TID PRN 03/12/16 11/16/17 Cholecalciferol [Vitamin D3] 5,000 unit PO DAILY 11/12/17 11/16/17 Previous Rx's Medication Instructions Recorded Atorvastatin [Lipitor] 20 mg PO HS #30 tab 02/04/16 Cilostazol [Pletal] 100 mg PO BID #30 tab 02/04/16 Cyanocobalamin [Vitamin B-12] 1,000 mcg PO DAILY #30 tab 02/04/16 Nitroglycerin Sl Tabs [Nitrostat] 0.4 mg SUBLINGUAL Q5M PRN #30 tab 02/04/16 predniSONE 60 mg PO DAILY 7 Days #21 tab 06/07/18 predniSONE 10 mg PO DIRECTED #20 tab 06/14/18 Allergies Allergy/AdvReac Type Severity Reaction Status Date / Time No Known Allergies Allergy Verified 06/14/18 14:18 Review of Systems ROS Statement: Those systems with pertinent positive or pertinent negative responses have been documented in the HPI. ROS Other: All systems not noted in ROS Statement are negative. Past Medical History Past Medical History: Chest Pain / Angina, COPD, Deep Vein Thrombosis (DVT), Hyperlipidemia, Myocardial Infarction ([place]), Osteoarthritis ([place]), Prostate Disorder, Pulmonary Embolus ([place]) Additional Past Medical History / Comment(s): ETOH abuse, homeless, L lower leg DVT, 02/01/13 pulmonary embolism, chronic low back pain, past R arm fractures, DJD, bilateral inguinal hernias, psoriasis, normocytic anemia, pt states prostrate disease but not sure what type, PAD, bilateral leg/feet neuropathy,vertigo at times, insomnia. Last Myocardial Infarction Date:: early History of Any Multi-Drug Resistant Organisms: None Reported Past Surgical History: Orthopedic Surgery Additional Past Surgical History / Comment(s): orif lt hip plate/screws have since been removed. Past Anesthesia/Blood Transfusion Reactions: No Reported Reaction Past Psychological History: Anxiety, Depression Smoking Status: Current every day smoker Past Alcohol Use History: Daily, Occasional Past Drug Use History: None Reported - Past Family History Brother(s) Family Medical History: No Reported History Additional Family Medical History / Comment(s): He has 3 brothers with no major medical problems. Patient does not have any sisters. He has 4 children are apparently okay. Father Family Medical History: Myocardial Infarction ([place]) Additional Family Medical History / Comment(s): in his 60's [place] Mother Family Medical History: Myocardial Infarction ([place]) Additional Family Medical History / Comment(s): in her 60's [place] General Exam Limitations: no limitations General appearance: alert, in no apparent distress Head exam: Present: atraumatic, normocephalic. Absent: normal inspection (Diffuse scaling of the skin, mild erythema and excoriations noted) Eye exam: Present: normal appearance, PERRL, EOMI. Absent: scleral icterus, conjunctival injection, periorbital swelling ENT exam: Present: normal exam, normal oropharynx, mucous membranes moist Neck exam: Present: normal inspection, full ROM. Absent: tenderness, meningismus, lymphadenopathy Respiratory exam: Present: normal lung sounds bilaterally. Absent: respiratory distress, wheezes, rales, rhonchi, stridor Cardiovascular Exam: Present: regular rate, normal rhythm, normal heart sounds. Absent: systolic murmur, diastolic murmur, rubs, gallop, clicks Skin exam: Present: warm, dry Course Vital Signs 06/14/18 14:15 Temperature 98.7 F Pulse Rate 72 Respiratory 18 Rate Blood Pressure 144/74 O2 Sat by Pulse 98 Oximetry Medical Decision Making - Medical Decision Making 57-year-old male presented for recheck of contact dermatitis. Patient we given tapering dose of steroids at this time. Patient will follow-up with PCP and return for any worsening symptoms. Disposition Clinical Impression: Allergic contact dermatitis Disposition: HOME SELF-CARE Condition: Stable Instructions (If sedation given, give patient instructions): Contact Dermatitis (ED) Additional Instructions: Please return to the Emergency Department if symptoms worsen or any other concerns. Prescriptions: predniSONE 10 mg PO DIRECTED #20 tab Is patient prescribed a controlled substance at d/c from ED?: No Referrals: [facility] [Primary Care Provider] - 1-2 days Time of Disposition: 15:03
== END 2018-06-14 15:23 | disposition home or self-care (01) ==
LOC: EC 13:54
DX: L23.4 Allergic contact dermatitis due to dyes (principal); I25.2 Old myocardial infarction; F17.200 Nicotine dependence, unspecified, uncomplicated; Z79.82 Long term (current) use of aspirin; Z79.899 Other long term (current) drug therapy; Z86.718 Personal history of other venous thrombosis and embolism; Z86.711 Personal history of pulmonary embolism; Z59.0 Homelessness
CPT/HCPCS: 99283

== ENCOUNTER 2018-06-17 12:37 | Inpatient (IN) | payer OTHER ==
[2018-06-17] MEDS ORDERED: IPRATROPIUM-ALBUTEROL 3 ML NEB INHALATION STA (13:21)
[2018-06-17] MEDS ORDERED: methylPREDNISolone SOD SUCCI 125 MG/2 ML VIAL IV STA (13:21)
[2018-06-17] MEDS ORDERED: LEVOFLOXACIN 750MG-D5W PMX 750 MG in DEXTROSE/WATER 1 150ML.BAG IVPB STA (13:21)
[2018-06-17] MEDS ORDERED: SODIUM CHLORIDE 0.9% 1,000 ML IV STA ×2 (13:21)
[2018-06-17] MEDS ORDERED: ACETAMINOPHEN TAB 500 MG TAB PO STA (13:22)
[2018-06-17] MEDS ORDERED: KETOROLAC 30 MG/ML 1 ML VIAL IVP STA (13:22)
[2018-06-17 14:16] LABS: Basophils % (A) 0 %; Eosinophils # (A) 0.1 k/uL (0-0.7); Eosinophils % (A) 1 %; HCT 38.2 % (39.0-53.0); HGB 12.5 gm/dL (13.0-17.5); Lymphocytes # (A) 1.7 k/uL (1.0-4.8); Lymphocytes % (A) 21 %; MCH 34.8 pg (25.0-35.0); MCHC 32.8 g/dL (31.0-37.0); MCV 106.1 fL (80.0-100.0); Macrocytosis Moderate; Mean Platelet Volume 6.9; Monocytes # (A) 0.8 k/uL (0-1.0); Monocytes % (A) 11 %; Neutrophils # (A) 5.3 k/uL (1.3-7.7); Neutrophils % (A) 66 %; Platelet Count 135 k/uL (150-450); RDW 15.2 % (11.5-15.5)
[2018-06-17 14:21] LABS: INR 0.9 (<1.2); Partial Thromboplastin Time 25.2 sec (22.0-30.0); Prothrombin Time 9.7 sec (9.0-12.0)
[2018-06-17 14:28] LABS: ALT 17 U/L (21-72); AST 31 U/L (17-59); Albumin 3.6 g/dL (3.5-5.0); Alkaline Phosphatase 54 U/L (38-126); Anion Gap 7 mmol/L; Blood Urea Nitrogen 13 mg/dL (9-20); Carbon Dioxide 24 mmol/L (22-30); Chloride 101 mmol/L (98-107); Glucose 101 mg/dL (74-99); Sodium 132 mmol/L (137-145); Total Bilirubin 1.3 mg/dL (0.2-1.3); Total Protein 6.7 g/dL (6.3-8.2)
[2018-06-17 14:43] LABS: D-Dimer 0.92 mg/L FEU (<0.60); Potassium 4.6 mmol/L (3.5-5.1)
--- NOTE | 2018-06-17 15:00 | XR ---
EXAMINATION TYPE: XR chest 2V DATE OF EXAM: 06/17/2018 COMPARISON: Prior chest x-ray 11/17/2017 HISTORY: Difficulty breathing TECHNIQUE: Frontal and lateral views of the chest are obtained. FINDINGS: There are cardiac leads. There is no focal air space opacity, pleural effusion, or pneumot horax seen. The cardiac silhouette size is stable question some perihilar groundglass opacity, promi nent interstitium. The osseous structures are intact. IMPRESSION: Possible alveolitis, early interstitial edema. Follow-up suggested.
--- NOTE | 2018-06-17 16:38 | CT ---
EXAMINATION TYPE: CT angio chest DATE OF EXAM: 06/17/2018 COMPARISON: 11/17/2017 HISTORY: Chest pain and shortness of breath CT DLP: 302.2 mGycm. Automated Exposure Control for Dose Reduction was Utilized. CONTRAST: CTA scan of the thorax is performed with IV Contrast, patient injected with 100 mL of Isovue 370, pul monary embolism protocol. MIP Images are created on CT scanner and reviewed. FINDINGS: LUNGS: There is a new right upper lobe medial pulmonary mass measuring 3.3 cm and left upper lobe sub pleural solid pulmonary nodule measuring 2.4 cm. Scattered atelectasis is seen at the lung bases. Brandi gular atelectasis is also present. MEDIASTINUM: There is satisfactory enhancement of the pulmonary artery and its branches, there is no CT evidence for pulmonary embolism. There is mediastinal adenopathy with the left paratracheal lymph node measuring 1.5 cm in short axis and right hilar lymph node measuring 1.1 cm in short axis. No car diomegaly or pericardial effusion is seen. Moderate coronary artery calcifications are seen. OTHER: Moderate multilevel degenerative changes of the spine are present. IMPRESSION: 1. No evidence of pulmonary embolus. 2. Highly suspicious new right apical pulmonary mass and left apical pulmonary nodule that should be considered neoplasm until proven otherwise. There is associated mediastinal adenopathy without suprac lavicular adenopathy.
--- NOTE | 2018-06-17 16:58 | ED ---
General Adult HPI - General Chief complaint: Chest Pain Stated complaint: KAYLEEN Time Seen by Provider: 06/17/18 13:17 Source: patient, EMS Mode of arrival: EMS Limitations: no limitations - History of Present Illness Initial comments: This 57-year-old white male presents with a complaint of some chest pain and shortness of breath. He states that he has also had a cough with just production. He presents with a fever of 103. He states that the pain is on the left side of his chest. It is much worse with any deep inspiration or cough and is described as a sharp pain. He denies any leg pain or swelling. Symptoms have been present for 3-4 days. He also relates that he's had some shortness of breath and cough symptoms for approximately 4 months. He has had a decrease in his appetite. He is unsure if he's had any weight loss. He denies any history of cancer. He relates that he's been following up at a clinic and they noted that his PSA level was significantly elevated recently as compared to previous. He has not followed up in this regard as recommended. He is still smoking but states that he is trying to decrease or quit. He denies any hemoptysis. No other complaints or modifying factors. - Related Data Home Medications Medication Instructions Recorded Confirmed Aspirin EC [Ecotrin Low Dose] 81 mg PO DAILY 03/12/16 06/17/18 Gabapentin [Neurontin] 300 mg PO BID 03/12/16 06/17/18 Ibuprofen [Motrin] 800 mg PO TID PRN 03/12/16 06/17/18 Cholecalciferol [Vitamin D3] 5,000 unit PO DAILY 11/12/17 06/17/18 Albuterol Inhaler [Ventolin Hfa 2 puff INHALATION RT-Q4H PRN 06/17/18 06/17/18 Inhaler] Budesonide [Pulmicort Flexhaler] 1 puff INHALATION RT-BID 06/17/18 06/17/18 Cyanocobalamin [Vitamin B-12 1,000 mcg SQ Q7D 06/17/18 06/17/18 Injection] Nortriptyline [Pamelor] 25 mg PO HS 06/17/18 06/17/18 SUMAtriptan SUCCINATE [Imitrex] 25 mg PO Q4-6H PRN MDD 3 TABS 06/17/18 06/17/18 traMADol HCL [Ultram] 50 mg PO BID 06/17/18 06/17/18 Previous Rx's Medication Instructions Recorded Atorvastatin [Lipitor] 20 mg PO HS #30 tab 02/04/16 Cyanocobalamin [Vitamin B-12] 1,000 mcg PO DAILY #30 tab 02/04/16 Nitroglycerin Sl Tabs [Nitrostat] 0.4 mg SUBLINGUAL Q5M PRN #30 tab 02/04/16 Allergies Allergy/AdvReac Type Severity Reaction Status Date / Time No Known Allergies Allergy Verified 06/17/18 13:19 Review of Systems ROS Statement: Those systems with pertinent positive or pertinent negative responses have been documented in the HPI. ROS Other: All systems not noted in ROS Statement are negative. Past Medical History Past Medical History: Chest Pain / Angina, COPD, Deep Vein Thrombosis (DVT), Hyperlipidemia, Myocardial Infarction ([place]), Osteoarthritis ([place]), Prostate Disorder, Pulmonary Embolus ([place]) Additional Past Medical History / Comment(s): ETOH abuse, homeless, L lower leg DVT, 02/01/13 pulmonary embolism, chronic low back pain, past R arm fractures, D LEAH, bilateral inguinal hernias, psoriasis, normocytic anemia, pt states prostrate disease but not sure what type, PAD, bilateral leg/feet neuropathy,vertigo at times, insomnia. Last Myocardial Infarction Date:: early History of Any Multi-Drug Resistant Organisms: None Reported Past Surgical History: Orthopedic Surgery Additional Past Surgical History / Comment(s): orif lt hip plate/screws have since been removed. Past Anesthesia/Blood Transfusion Reactions: No Reported Reaction Past Psychological History: Anxiety, Depression Smoking Status: Current every day smoker Past Alcohol Use History: Daily, Occasional Past Drug Use History: None Reported - Past Family History Brother(s) Family Medical History: No Reported History Additional Family Medical History / Comment(s): He has 3 brothers with no major medical problems. Patient does not have any sisters. He has 4 children are apparently okay. Father Family Medical History: Myocardial Infarction ([place]) Additional Family Medical History / Comment(s): in his 60's [place] Mother Family Medical History: [place]ocardial Infarction ([place]) Additional Family Medical History / Comment(s): in her 60's [place] General Exam - General Exam Comments Initial Comments: GENERAL: The patient is well nourished and well hydrated. VITAL SIGNS: Heart rate, blood pressure, respiratory rate reviewed as recorded in nurse's notes. EYES: Pupils are round and reactive. Extraocular movements are intact. No conjunctival / lid redness or swelling. ENT: No external evidence of injury, swelling, or ecchymosis. Airway is patent. Throat is clear. NECK: Nontender. No swelling or evidence of injury. No subcutaneous emphysema. Trachea is midline. No thyroid mass. HEART: Regular rate and rhythm. Good peripheral pulses. LUNGS/CHEST: There is mild rhonchi noted bilaterally. There is mild splinting with deep inspiration. No ecchymosis, subcutaneous emphysema, or tenderness. ABDOMEN: Abdomen soft without tenderness. No palpable masses or organomegaly. No peritoneal signs. No abdominal wall swelling or ecchymosis. EXTREMITIES: No extremity tenderness. Normal muscle tone and function. No thoracolumbar tenderness. NEUROLOGIC: Sensation is grossly intact. Cranial nerve exam reveals face is symmetrical, tongue is midline, speech is clear. SKIN: No abrasions or ecchymosis is noted. No induration or masses noted. PSYCHIATRIC: Alert and oriented. Appropriate behavior and judgment. Limitations: no limitations Course Vital Signs 06/17/18 06/17/18 06/17/18 12:50 13:00 13:30 Temperature 103.2 F H Pulse Rate 92 81 80 Respiratory 24 22 22 Rate Blood Pressure 141/75 141/75 135/73 O2 Sat by Pulse Oximetry 06/17/18 06/17/18 06/17/18 14:00 14:30 14:49 Temperature Pulse Rate 81 87 76 Respiratory 23 24 Rate Blood Pressure 138/68 116/70 O2 Sat by Pulse 98 Oximetry 06/17/18 06/17/18 06/17/18 15:00 15:01 15:30 Temperature Pulse Rate 75 80 82 Respiratory 24 22 Rate Blood Pressure 116/70 103/63 O2 Sat by Pulse 100 98 Oximetry 06/17/18 06/17/18 17:00 17:35 Temperature 97.6 F Pulse Rate 67 66 Respiratory 22 20 Rate Blood Pressure 110/64 103/71 O2 Sat by Pulse 98 Oximetry Medical Decision Making - Medical Decision Making The patient was seen and examined. All diagnostics are reviewed. The EKG shows a normal sinus rhythm at a rate of 87. There is no acute ST-T wave changes identified. The MD intervals 132, the QRS duration is 84, and the QTC intervals 433. An IV is established and he is hydrated. He receives some Toradol as well as some Tylenol. IV antibiotics are administered as well. He receives a DuoNeb breathing treatment. The laboratories reviewed and does show slight elevation in the white blood cell count. The chest x-ray showed some alveolitis versus interstitial edema. The patient's d-dimer is elevated so a CT of the thorax was completed and this does show suspicion for mass as well as some lymphadenopathy. Radiologist relates that this is likely cancer until ruled out. He does receive another albuterol breathing treatment. The case is discussed with Dr. Venegas and he is agreeable to admission. - Lab Data Result diagrams: 06/17/18 13:43 06/17/18 13:43 Lab Results 06/17/18 06/17/18 06/17/18 Range/Units 13:43 13:43 13:43 WBC 8.0 (3.8-10.6) k/uL RBC 3.60 L (4.30-5.90) m/uL Hgb 12.5 L (13.0-17.5) gm/dL Hct 38.2 L (39.0-53.0) % MCV 106.1 H (80.0-100.0) fL MCH 34.8 (25.0-35.0) pg MCHC 32.8 (31.0-37.0) g/dL RDW 15.2 (11.5-15.5) % Plt Count 135 L (150-450) k/uL Neutrophils % 66 % Lymphocytes % 21 % Monocytes % 11 % Eosinophils % 1 % Basophils % 0 % Neutrophils # 5.3 (1.3-7.7) k/uL Lymphocytes # 1.7 (1.0-4.8) k/uL Monocytes # 0.8 (0-1.0) k/uL Eosinophils # 0.1 (0-0.7) k/uL Basophils # 0.0 (0-0.2) k/uL Macrocytosis Moderate PT 9.7 (9.0-12.0) sec INR 0.9 (<1.2) APTT 25.2 (22.0-30.0) sec D-Dimer 0.92 H (<0.60) mg/L FEU Sodium 132 L (137-145) mmol/L Potassium 4.6 (3.5-5.1) mmol/L Chloride 101 (98-107) mmol/L Carbon Dioxide 24 (22-30) mmol/L Anion Gap 7 mmol/L BUN 13 (9-20) mg/dL Creatinine 0.92 (0.66-1.25) mg/dL Est GFR (CKD-EPI)AfAm >90 (>60 ml/min/1.73 sqM) Est GFR (CKD-EPI)NonAf >90 (>60 ml/min/1.73 sqM) Glucose 101 H (74-99) mg/dL Plasma Lactic Acid Jordan (0.7-2.0) mmol/L Calcium 9.0 (8.4-10.2) mg/dL Magnesium 2.0 (1.6-2.3) mg/dL Total Bilirubin 1.3 (0.2-1.3) mg/dL AST 31 (17-59) U/L ALT 17 L (21-72) U/L Alkaline Phosphatase 54 (38-126) U/L Troponin I (0.000-0.034) ng/mL NT-Pro-B Natriuret Pep pg/mL Total Protein 6.7 (6.3-8.2) g/dL Albumin 3.6 (3.5-5.0) g/dL 06/17/18 06/17/18 06/17/18 Range/Units 13:43 13:43 13:43 WBC (3.8-10.6) k/uL RBC (4.30-5.90) m/uL Hgb (13.0-17.5) gm/dL Hct (39.0-53.0) % MCV (80.0-100.0) fL MCH (25.0-35.0) pg MCHC (31.0-37.0) g/dL RDW (11.5-15.5) % Plt Count (150-450) k/uL Neutrophils % % Lymphocytes % % Monocytes % % Eosinophils % % Basophils % % Neutrophils # (1.3-7.7) k/uL Lymphocytes # (1.0-4.8) k/uL Monocytes # (0-1.0) k/uL Eosinophils # (0-0.7) k/uL Basophils # (0-0.2) k/uL Macrocytosis PT (9.0-12.0) sec INR (<1.2) APTT (22.0-30.0) sec D-Dimer (<0.60) mg/L FEU Sodium (137-145) mmol/L Potassium (3.5-5.1) mmol/L Chloride (98-107) mmol/L Carbon Dioxide (22-30) mmol/L Anion Gap mmol/L BUN (9-20) mg/dL Creatinine (0.66-1.25) mg/dL Est GFR (CKD-EPI)AfAm (>60 ml/min/1.73 sqM) Est GFR (CKD-EPI)NonAf (>60 ml/min/1.73 sqM) Glucose (74-99) mg/dL Plasma Lactic Acid Jordan 1.5 (0.7-2.0) mmol/L Calcium (8.4-10.2) mg/dL Magnesium (1.6-2.3) mg/dL Total Bilirubin (0.2-1.3) mg/dL AST (17-59) U/L ALT (21-72) U/L Alkaline Phosphatase (38-126) U/L Troponin I <0.012 (0.000-0.034) ng/mL NT-Pro-B Natriuret Pep 437 pg/mL Total Protein (6.3-8.2) g/dL Albumin (3.5-5.0) g/dL Disposition Clinical Impression: Fever, Chest pain, Anemia, Dyspnea, Pulmonary mass, COPD exacerbation Disposition: ADMITTED IP TO THIS [facility] Condition: Fair Is patient prescribed a controlled substance at d/c from ED?: No Referrals: [facility] [Primary Care Provider] - 1-2 days Time of Disposition: 17:47 Decision Date: 06/17/18 Decision Time: 17:47
[2018-06-17] MEDS ORDERED: ALBUTEROL NEBULIZED 2.5 MG/3 ML INHALATION STA (17:21)
[2018-06-17] MEDS ORDERED: ACETAMINOPHEN TAB 325 MG TAB PO PRN (17:47)
[2018-06-17] MEDS ORDERED: NITROGLYCERIN SL TABS 0.4 MG TAB SUBLINGUAL PRN (17:47)
[2018-06-17] MEDS ORDERED: SUMAtriptan SUCCINATE 25 MG TAB PO PRN (17:51)
[2018-06-17] MEDS ORDERED: IBUPROFEN 400 MG TAB PO PRN (17:52)
[2018-06-17] MEDS ORDERED: methylPREDNISolone SOD SUCCI 125 MG/2 ML VIAL IV SCH (18:00)
[2018-06-17 18:07] LABS: Appearance,Urine Clear (Clear); Bacteria,Urine Rare /hpf; Bilirubin,Urine Negative (Negative); Blood,Urine Trace (Negative); Color,Urine Light Yellow; Glucose,Urine (UA) Negative (Negative); Ketones,Urine Negative (Negative); Leukocyte Esterase,Urine Negative (Negative); Nitrite,Urine Negative (Negative); PH, Urine 6.5 (5.0-8.0); Protein,Urine Negative (Negative); RBC,Urine 3 /hpf (0-5); Specific Gravity,Urine 1.006 (1.001-1.035); Urobilinogen,Urine <2.0 mg/dL (<2.0)
[2018-06-17] MEDS ORDERED: TEMAZEPAM 15 MG CAP PO PRN (19:07)
[2018-06-17] MEDS ORDERED: LORazepam 0.5 MG TAB PO PRN (19:07)
[2018-06-17 20:11] VITALS: BMI 25.1
[2018-06-17] MEDS: SYMBICORT 160-4.5 MCG INHALER INHALATION SCH (20:44)
[2018-06-17] MEDS: IPRATROPIUM-ALBUTEROL 3 ML NEB INHALATION SCH ×2 (20:44→23:24)
[2018-06-17] MEDS: FLUTICASONE 110 MCG INHALER INHALATION SCH (20:44)
[2018-06-17] MEDS: traMADol 50 MG TAB PO SCH (20:57)
[2018-06-17] MEDS: NORTRIPTYLINE 25 MG CAP PO SCH (20:57)
[2018-06-17] MEDS: ATORVASTATIN 20 MG TAB PO SCH (20:57)
[2018-06-17] MEDS: GABAPENTIN 300 MG CAP PO SCH (20:57)
[2018-06-17] MEDS: NICOTINE 14MG/24HR PATCH TRANSDERM SCH (20:58)
[2018-06-17] MEDS: AZITHROMYCIN 500 MG in SODIUM CHLORIDE 0.9% 250 ML IVPB SCH (20:58)
--- NOTE | 2018-06-17 21:13 | HP ---
HISTORY AND PHYSICAL CHIEF COMPLAINTS: Fever and chest pain. HISTORY OF PRESENT ILLNESS: This 57-year-old gentleman with a past medical history of multiple medical problems including COPD, history of DVT, hyperlipidemia, history of myocardial infarction, history of DJD, history of pulmonary embolism, history of ETOH abuse apparently was homeless also per chart, but currently living in his house, was complaining of fever. The patient also complains of cough and sputum. Patient also had chest pain, shortness of breath, fevers of 103 degrees, and because of multiple complex complaints, patient came to [facility] and was admitted for further evaluation and treatment. D- dimer was elevated and CT scan showed highly suspicious right apical pulmonary mass and left apical pulmonary nodule with possible neoplasm versus infectious considered and associated mediastinal lymphadenopathy was also noted with ( ) enlargement. The patient admitted for further evaluation and treatment. There is no history of any headache, loss of consciousness, chest pain, palpitations, hematochezia or melena at this time. PAST MEDICAL HISTORY: History of COPD, history of DVT, history of hyperlipidemia, myocardial infarction, DJD, history of pulmonary embolism, history of EtOH abuse. MEDICATIONS: Prior to admission include home medications are: 1. Ultram 50 mg p.o. b.i.d. 2. Imitrex 25 mg q.4 p.r.n. 3. Pamelor 25 mg q.h.s. 4. Nitrostat 0.4 mg p.o. 5. Motrin mg p.o. t.i.d. 6. Neurontin 300 mg p.o. b.i.d. 7. Vitamin B12, 1000 mg p.o. daily and 1000 mcg Q 7 days. 8. Vitamin D3, 5000 units daily. 9. Pulmicort 1 puff b.i.d. 10.Lipitor 20 mg q.h.s. 11.Ecotrin 81 mg. 12.Ventolin HFA 2 puffs q.4h p.r.n. ALLERGIES: None. FAMILY HISTORY: History of myocardial infarction in the family. SOCIAL HISTORY: Patient apparently was homeless previously according to chart. History of smoking. Continued history of alcohol intake. REVIEW OF SYSTEMS: ENT: No diminished hearing or vision. CARDIOVASCULAR: As mentioned earlier. RESPIRATORY: As mentioned earlier. GI: No nausea. : No dysuria. NERVOUS SYSTEM: No numbness, weakness. ALLERGY/IMMUNOLOGY: No asthma. MUSCULOSKELETAL: As mentioned earlier. HEMATOLOGY/ONCOLOGY: As mentioned earlier. ENDOCRINE: No history of diabetes or hypothyroidism. PSYCHIATRY: As mentioned earlier. CONSTITUTIONAL: As mentioned earlier. PHYSICAL EXAMINATION: Patient is alert, oriented x3. Pulse is 80, blood pressure 103/70, respiration 20, temperature 97.2, pulse ox 98% on 2 L HEENT: Conjunctivae normal. Oral mucosa moist. NECK: No jugular venous distention. No thyroid enlargement. CARDIOVASCULAR: S1, S2. RESPIRATORY: Diminished breath sounds at the bases. A few scattered rhonchi and crackles. ABDOMEN: Soft, nontender. No mass palpable. LEGS: No swelling. NERVOUS SYSTEM: Higher functions mentioned earlier. Moves all four limbs. LYMPHATICS: No lymph node in neck or axillae. SKIN: No rash. JOINTS: No active deforming arthropathy. LABS: WBC 8, hemoglobin is 12.5, sodium is 132 and potassium is 4.6. ASSESSMENT: 1. Fever with possible pneumonia, acute bilateral, right more than left. 2. Rule out malignancy or tuberculosis. 3. Anemia, macrocytic. 4. Thrombocytopenia. 5. Hyponatremia. 6. History of chronic obstructive pulmonary disease. 7. History of deep vein thrombosis. 8. Hyperlipidemia. 9. History of myocardial infarction. 10.History of degenerative joint disease. 11.History of pulmonary embolus. 12.History of ETOH. 13.History of homelessness previously. 14.History of anxiety, depression. RECOMMENDATIONS AND DISCUSSION: This 57-year-old gentleman who presented with multiple complex medical issues, at this time I recommend to continue current management, continue symptomatic treatment, will initiate broad-spectrum IV antibiotics, obtain cultures. I would also recommend pulmonary and infectious disease evaluation. Also recommend to hold the steroids for now and continue to monitor. The prognosis is guarded because of multiple complex medical issues. The possibility of malignancy is also consideration. The patient might require further evaluation including bronchoscopy and isolation is also recommended. Further recommendations to follow: See orders for details. MMODL / IJN: [id number] /
--- NOTE | 2018-06-17 21:18 | P.CNPUL ---
History of Present Illness Consult date: 06/17/18 Reason for consult: chest pain, abnormal CXR/CT History of present illness: 87-year-old male patient is coming into the emergency department because of chest pain mainly across the left anterior chest area and salicylate shortness of breath. He has a congested cough. Unable to bring up much sputum. He had a fever of 103. Currently is afebrile. His pain is slightly worse with deep breathing. No hemoptysis. No weight loss. no other constitutional symptoms. No exposure to TB. He is currently living with his brother. At one point he was homeless. CAT scan of the chest was done and patient was found to have no evidence of any pulmonary embolism. There was a new right upper lobe masslike consolidation measuring 3.3 cm in size in addition to another 2.4 cm left upper lobe subpleural pulmonary infiltrates and these were not present on previous CAT scan of the chest was done on 11/17/2017. There is also stable based on lymph n ode measuring 1.5 cm and the left paratracheal area. The patient was started on a combination of Rocephin and Zithromax. He was noted to the hospital for further evaluation of pulmonary consultation was requested. He is hemodynamically stable. Is a poor historian. Is a chronic smoker. [facility]. No leukocytosis. Rest of the blood work and electrodes are all within normal limits. He has history of chronic alcoholism. He also has history of COPD. He reported to drink heavily in the past. He was Hospital as back in October 2017 for a similar left-sided chest pain. Review of Systems Constitutional: Reports chronic pain, Reports fever, Reports poor appetite Eyes: denies as per HPI, denies blurred vision, denies bulging eye, denies decreased vision, denies diplopia, denies discharge, denies dry eye, denies irritation, denies itching, denies pain, denies photophobia, denies loss of peripheral vision, denies loss of vision, denies tunnel vision/blind spots Ears: deny: decreased hearing, ear discharge, earache, tinnitus Ears, nose, mouth and throat: Denies headache, Denies sore throat Breasts: absent: as per HPI, gynecomastia Cardiovascular: Reports chest pain, Reports decreased exercise tolerance, Reports dyspnea on exertion, Reports shortness of breath Respiratory: Reports cough, Reports dyspnea, Reports wheezing Gastrointestinal: Reports as per HPI Genitourinary: Reports as per HPI Musculoskeletal: Reports as per HPI Musculoskeletal: absent: ankle pain, ankle stiffness, ankle swelling, as per HPI, elbow pain, elbow stiffness, elbow swelling, foot pain, foot stiffness, foot swelling, hand pain, hand stiffness, hand swelling, hip pain, hip stiffness, hip swelling, knee pain, knee stiffness, knee swelling, shoulder pain, shoulder stiffness, shoulder swelling, wrist pain, wrist stiffness, wrist swelling Integumentary: Denies pruritus, Denies rash Neurological: Denies numbness, Denies weakness Psychiatric: Reports anxiety, Reports depression Endocrine: Reports as per HPI, Reports fatigue Hematologic/Lymphatic: Reports as per HPI Allergic/Immunologic: Reports as per HPI Past Medical History Past Medical History: Chest Pain / Angina, COPD, Deep Vein Thrombosis (DVT), Hyperlipidemia, Myocardial Infarction (PR), Osteoarthritis (OA), Prostate Disorder, Pulmonary Embolus (PE) Additional Past Medical History / Comment(s): COPD, alcoholism, previous history of a left lower extremity DVT and pulmonary embolism in January 2013, chronic back pain, history of right arm fractures, osteoarthritis, bilateral inguinal hernia, psoriasis, BPH, peripheral vascular disease, peripheral neuropathy, vertigo, insomnia Last Myocardial Infarction Date:: early History of Any Multi-Drug Resistant Organisms: None Reported Past Surgical History: Orthopedic Surgery Additional Past Surgical History / Comment(s): orif lt hip plate/screws have since been removed. Past Anesthesia/Blood Transfusion Reactions: No Reported Reaction Past Psychological History: Anxiety, Depression Additional Psychological History / Comment(s): He has a walker but does not use it. He cannot drive, no license. He gets to [employer] by bus or walking. Pt states he has had suicidal ideations in the past and has scars on forearm due to suicide attempts and he has also overdosed but denies suicidal thoughts/plans at this time. Smoking Status: Current every day smoker Past Alcohol Use History: Daily, Occasional Additional Past Alcohol Use History / Comment(s): Pt started smoking at age 10 smokes 2.5 ppd. Patient denies any marijuana or street drug use. Patient states that he drinks " a few" beers whenever he can get it. Past Drug Use History: None Reported - Past Family History Brother(s) Family Medical History: No Reported History Additional Family Medical History / Comment(s): He has 3 brothers with no major medical problems. Patient does not have any sisters. He has 4 children are apparently okay. Father Family Medical History: Myocardial Infarction (PR) Additional Family Medical History / Comment(s): in his 60's [place] Mother Family Medical History: Myocardial Infarction (PR) Additional Family Medical History / Comment(s): in her 60's [place] Medications and Allergies Home Medications Medication Instructions Recorded Confirmed Type Atorvastatin [Lipitor] 20 mg PO HS #30 tab 02/04/16 06/17/18 Rx Cyanocobalamin [Vitamin B-12] 1,000 mcg PO DAILY #30 tab 02/04/16 06/17/18 Rx Nitroglycerin Sl Tabs [Nitrostat] 0.4 mg SUBLINGUAL Q5M PRN #30 tab 02/04/16 06/17/18 Rx Aspirin EC [Ecotrin Low Dose] 81 mg PO DAILY 03/12/16 06/17/18 History Gabapentin [Neurontin] 300 mg PO BID 03/12/16 06/17/18 History Ibuprofen [Motrin] 800 mg PO TID PRN 03/12/16 06/17/18 History Cholecalciferol [Vitamin D3] 5,000 unit PO DAILY 11/12/17 06/17/18 History Albuterol Inhaler [Ventolin Hfa 2 puff INHALATION RT-Q4H PRN 06/17/18 06/17/18 History Inhaler] Budesonide [Pulmicort Flexhaler] 1 puff INHALATION RT-BID 06/17/18 06/17/18 History Cyanocobalamin [Vitamin B-12 1,000 mcg SQ Q7D 06/17/18 06/17/18 History Injection] Nortriptyline [Pamelor] 25 mg PO HS 06/17/18 06/17/18 History SUMAtriptan SUCCINATE [Imitrex] 25 mg PO Q4-6H PRN MDD 3 TABS 06/17/18 06/17/18 History traMADol HCL [Ultram] 50 mg PO BID 06/17/18 06/17/18 History Allergies Allergy/AdvReac Type Severity Reaction Status Date / Time No Known Allergies Allergy Verified 06/17/18 13:19 Physical Exam Vitals: Vital Signs Temp Pulse Pulse Resp BP BP Pulse Ox 06/17/18 20:56 83 06/17/18 20:50 97.8 F 68 18 104/58 96 06/17/18 20:45 79 95 06/17/18 18:23 74 06/17/18 18:10 70 06/17/18 18:00 80 20 103/71 06/17/18 17:35 97.6 F 66 20 103/71 98 06/17/18 17:00 67 22 110/64 06/17/18 15:30 82 22 103/63 98 06/17/18 15:01 80 06/17/18 15:00 75 24 116/70 100 06/17/18 14:49 76 06/17/18 14:30 87 24 116/70 98 06/17/18 14:00 81 23 138/68 06/17/18 13:30 80 22 135/73 06/17/18 13:00 81 22 141/75 06/17/18 12:50 103.2 F H 92 24 141/75 Intake and Output 06/17/18 06/17/18 06/17/18 06:59 14:59 22:59 Other: Voiding Method Toilet Weight 77.111 kg Gen. appearance, comfortable active distress Head exam was generally normal. There was no scleral icterus or corneal arcus. Mucous membranes were moist. Neck was supple and without jugular venous distension, thyromegaly, or carotid bruits. Carotids were easily palpable bilaterally. There was no adenopathy. Lungs sounds are diminished and there is scattered expiratory wheezes throughout the lung his bilaterally Cardiac exam revealed the PMI to be normally situated and sized. The rhythm was regular and no extrasystoles were noted during several minutes of auscultation. The first and second heart sounds were normal and physiologic splitting of the second heart sound was noted. There were no murmurs, rubs, clicks, or gallops. Abdominal exam revealed normal bowel sounds. The abdomen was soft, non-tender, and without masses, organomegaly, or appreciable enlargement of the abdominal aorta. Examination of the extremities revealed easily palpable radial, femoral and pedal pulses. There was no cyanosis, clubbing or edema. Examination of the skin revealed no evidence of significant rashes, suspicious appearing nevi or other concerning lesions. There are scars of previous skin breaks and cuts over his anterior abdominal wall Neurologically awake and alert there is no focal logical deficits Psychiatric to the patient has history of chronic anxiety and depression, no suicidal ideations for now. Results - Laboratory Findings CBC and BMP: 06/17/18 13:43 06/17/18 13:43 PT/INR, D-dimer PT 9.7 sec (9.0-12.0) 06/17/18 13:43 INR 0.9 (<1.2) 06/17/18 13:43 D-Dimer 0.92 mg/L FEU (<0.60) H 06/17/18 13:43 Abnormal lab findings: Abnormal Labs 06/17/18 06/17/18 06/17/18 13:43 13:43 13:43 RBC 3.60 L Hgb 12.5 L Hct 38.2 L MCV 106.1 H Plt Count 135 L D-Dimer 0.92 H Sodium 132 L Glucose 101 H ALT 17 L Urine Blood Urine Bacteria 06/17/18 17:38 RBC Hgb Hct MCV Plt Count D-Dimer Sodium Glucose ALT Urine Blood Trace H Urine Bacteria Rare H - Diagnostic Findings CT scan - chest: image reviewed Assessment and Plan Plan: Assessment 1 bilateral upper lobe pulmonary opacity/infiltrate which has a masslike appearance. Favor pneumonia over malignancy specially the patient had a CAT scan of the chest that was done October 2017 and these findings were not present back then. He presented to the hospital because of fever and chest pains push on the left. I favor infectious causes . I do not think this is a tuberculosis infection knowing that the patient had a normal CAT scan of the chest back in October 2017 and this is rather quick and acute for tuberculosis. As such, I do not think there is a need for isolating this patient is point tender especially if he does not have any exposure to TB. 2 left paratracheal lymphadenopathy, measuring 1.5 cm in size, unchanged since October 2017 3 remote history of DVT and pulmonary embolism back in 2012, current CT angios the chest shows evidence of PE 4 depression with previous history of suicidal intentions and ideations, none for now 5 history of alcoholism 6 smoker 7 COPD 8 history of coronary artery disease 9 psoriasis 10 chronic back pain 11 peripheral neuropathy 12 hyperlipidemia 13 chronic pain Plan Continue current antibiotic coverage. Agree on Rocephin and Zithromax. Sputum Gram stain and culture. Continue DuoNeb nebulized treatments around the clock. Resume outpatient medication. Smoking cessation counseling was done. Nicotine patches. Outpatient follow-up with another CAT scan amount time and bronchoscopy of the pulmonary infiltrates remain unchanged. We'll continue to follow. Offer this patient DVT prophylaxis with subcu heparin/Lovenox.
[2018-06-18] MEDS: IPRATROPIUM-ALBUTEROL 3 ML NEB INHALATION SCH ×6 (03:31→23:45)
[2018-06-18 07:00] LABS: Basophils % (A) 0 %; Eosinophils % (A) 1 %; HCT 33.2 % (39.0-53.0); Lymphocytes % (A) 13 %; MCH 34.3 pg (25.0-35.0); MCHC 33.3 g/dL (31.0-37.0); MCV 102.9 fL (80.0-100.0); Macrocytosis Slight; Mean Platelet Volume 7.1; Monocytes # (A) 0.6 k/uL (0-1.0); Monocytes % (A) 8 %; Neutrophils # (A) 5.8 k/uL (1.3-7.7); Neutrophils % (A) 77 %; Platelet Count 150 k/uL (150-450); RBC 3.22 m/uL (4.30-5.90); RDW 14.9 % (11.5-15.5); WBC 7.5 k/uL (3.8-10.6)
[2018-06-18 07:34] LABS: Anion Gap 6 mmol/L; Blood Urea Nitrogen 16 mg/dL (9-20); Calcium 8.7 mg/dL (8.4-10.2); Carbon Dioxide 24 mmol/L (22-30); Chloride 105 mmol/L (98-107); Cholesterol 175 mg/dL (<200); Glucose 135 mg/dL (74-99); HDL Cholesterol 63 mg/dL (40-60); LDL Cholesterol,Calculated 99 mg/dL (0-99); Potassium 4.4 mmol/L (3.5-5.1); Sodium 135 mmol/L (137-145); Triglycerides 65 mg/dL (<150)
[2018-06-18] MEDS: NICOTINE 14MG/24HR PATCH TRANSDERM SCH (08:07)
[2018-06-18] MEDS: CYANOCOBALAMIN 500 MCG TAB PO SCH (08:07)
[2018-06-18] MEDS: ENOXAPARIN 40 MG/0.4 ML SYRINGE SQ SCH (08:07)
[2018-06-18] MEDS: CHOLECALCIFEROL 1,000 UNIT TAB PO SCH (08:07)
[2018-06-18] MEDS: GABAPENTIN 300 MG CAP PO SCH ×2 (08:07→20:54)
[2018-06-18] MEDS: traMADol 50 MG TAB PO SCH ×2 (08:08→20:54)
[2018-06-18] MEDS: PANTOPRAZOLE 40 MG TABLET PO SCH (08:08)
[2018-06-18] MEDS: ASPIRIN 81 MG PO SCH (08:08)
[2018-06-18] MEDS ORDERED: ASPIRIN 325 MG TAB PO SCH (09:00)
[2018-06-18] MEDS: SYMBICORT 160-4.5 MCG INHALER INHALATION SCH ×3 (10:14→19:32)
[2018-06-18] MEDS: FLUTICASONE 110 MCG INHALER INHALATION SCH ×3 (10:15→19:32)
--- NOTE | 2018-06-18 12:05 | ECHOF ---
Referral Reason: MEASUREMENTS -------- HEIGHT: 175.3 cm WEIGHT: 77.1 kg BP: 113/67 RVIDd: 2.4 cm (< 3.3) IVSd: 1.2 cm (0.6 - 1.1) LVIDd: 3.9 cm (3.9 - 5.3) LVPWd: 1.2 cm (0.6 - 1.1) IVSs: 1.6 cm LVIDs: 1.7 cm LVPWs: 2.0 cm LAESV Index (A-L): 30.50 ml/m Ao Diam: 3.1 cm (2.0 - 3.7) AV Cusp: 2.1 cm (1.5 - 2.6) LA Diam: 3.4 cm (2.7 - 3.8) MV EXCURSION: 19.436 mm (> 18.000) MV EF SLOPE: 142 mm/s (70 - 150) EPSS: 1.4 cm MV E Jesus Alberto: 1.01 m/s MV DecT: 198 ms MV A Jesus Alberto: 0.55 m/s MV E/A Ratio: 1.84 RAP: 5.00 mmHg RVSP: 26.56 mmHg FINDINGS -------- Sinus rhythm with extra systolic beats. This was a technically good study. The left ventricular size is normal. There is mild concentric left ventricular hypertrophy. Overa ll left ventricular systolic function is normal with, an EF between 55 - 60 %. The right ventricle is normal in size. LA is midly dilated 29-33ml/m2. The right atrial size is normal. The aortic valve is trileaflet and appears structurally normal. Mild mitral regurgitation is present. Mild tricuspid regurgitation present. The right ventricular systolic pressure, as measured by Doppl er, is 26.56mmHg. There is no pulmonic regurgitation present. The aortic root size is normal. The inferior vena cava is mildly dilated but collapses. There is no pericardial effusion. CONCLUSIONS -------- 1. Sinus rhythm with extra systolic beats. 2. This was a technically good study. 3. The left ventricular size is normal. 4. There is mild concentric left ventricular hypertrophy. 5. Overall left ventricular systolic function is normal with, an EF between 55 - 60 %. 6. The right ventricle is normal in size. 7. LA is midly dilated 29-33ml/m2. 8. The right atrial size is normal. 9. The aortic valve is trileaflet and appears structurally normal. 10. Mild mitral regurgitation is present. 11. Mild tricuspid regurgitation present. 12. The right ventricular systolic pressure, as measured by Doppler, is 26.56mmHg. 13. There is no pulmonic regurgitation present. 14. The aortic root size is normal. 15. The inferior vena cava is mildly dilated but collapses. 16. There is no pericardial effusion. PEANUT SALTER: Vinita Murray RDCS
--- NOTE | 2018-06-18 15:43 | P.PN ---
Subjective Progress Note Date: 06/18/18 Principal diagnosis: Bilateral pneumonia 87-year-old male patient is coming into the emergency department because of chest pain mainly across the left anterior chest area and salicylate shortness of breath. He has a congested cough. Unable to bring up much sputum. He had a fever of 103. Currently is afebrile. His pain is slightly worse with deep breathing. No hemoptysis. No weight loss. no other constitutional symptoms. No exposure to TB. He is currently living with his brother. At one point he was homeless. CAT scan of the chest was done and patient was found to have no evidence of any pulmonary embolism. There was a new right upper lobe masslike consolidation measuring 3.3 cm in size in addition to another 2.4 cm left upper lobe subpleural pulmonary infiltrates and these were not present on previous CAT scan of the chest was done on 11/17/2017. There is also stable based on lymph node measuring 1.5 cm and the left paratracheal area. The patient was started on a combination of Rocephin and Zithromax. He was noted to the hospital for further evaluation of pulmonary consultation was requested. He is hemodynamically stable. Is a poor historian. Is a chronic smoker. [facility]. No leukocytosis. Rest of the blood work and electrodes are all within normal limits. He has history of chronic alcoholism. He also has history of COPD. He reported to drink heavily in the past. He was Hospital as back in October 2017 for a similar left-sided chest pain. On 06/18/2018 patient seen in follow-up. He is on room air, he is breathing easier today, denies any chest pain on today's exam. 97% on room air, he is afebrile, hemodynamically stable, he is being treated for acute pneumonia, he is on a combination of Zithromax and Rocephin. Lung sounds reveal coarse rales bilaterally, no fever or chills, no diaphoresis. Patient is ambulating in the room, tolerating activity well, Objective - Vital Signs Vital signs: Vital Signs Temp 98.3 F 06/18/18 11:25 Pulse 62 06/18/18 15:29 Resp 18 06/18/18 11:25 BP 103/71 06/18/18 11:25 Pulse Ox 97 06/18/18 07:55 Intake & Output 06/17/18 06/18/18 06/18/18 18:59 06:59 18:59 Intake Total 350 582 Balance 350 582 Weight 77.111 kg Intake: Intake, IV Titration 350 Amount Azithromycin 500 mg In 250 Sodium Chloride 0.9% 250 ml @ 250 mls/hr IVPB HS LEIGH Rx#:[id number] cefTRIAXone 1 gm In 100 Sodium Chloride 0.9% 50 ml @ 100 mls/hr IVPB Q24H LEIGH Rx#:[id number] Oral 582 Other: Voiding Method Toilet # Voids 2 2 - Exam GENERAL EXAM: Alert, pleasant, 57-year-old white male comfortable in no apparent distress. HEAD: Normocephalic/atraumatic. EYES: Normal reaction of pupils, equal size. Conjunctiva pink, sclera white. NOSE: Clear with pink turbinates. THROAT: No erythema or exudates. NECK: No masses, no JVD, no thyroid enlargement, no adenopathy. CHEST: No chest wall deformity. Symmetrical expansion. LUNGS: Equal air entry with diffuse crackles bilaterally CVS: Regular rate and rhythm, normal S1 and S2, no gallops, no murmurs, no rubs ABDOMEN: Soft, nontender. No hepatosplenomegaly, normal bowel sounds, no guarding or rigidity. EXTREMITIES: No clubbing, no edema, no cyanosis, 2+ pulses and upper and lower extremities. MUSCULOSKELETAL: Muscle strength and tone normal. SPINE: No scoliosis or deformity SKIN: No rashes CENTRAL NERVOUS SYSTEM: Alert and oriented -3. No focal deficits, tone is normal in all 4 extremities. PSYCHIATRIC: Alert and oriented -3. Appropriate affect. Intact judgment and insight. - Labs CBC & Chem 7: 06/18/18 05:52 06/18/18 05:52 Labs: Abnormal Lab Results - Last 24 Hours (Table) 06/17/18 06/18/18 06/18/18 Range/Units 17:38 05:52 05:52 RBC 3.22 L (4.30-5.90) m/uL Hgb 11.0 L (13.0-17.5) gm/dL Hct 33.2 L (39.0-53.0) % MCV 102.9 H (80.0-100.0) fL Sodium 135 L (137-145) mmol/L Glucose 135 H (74-99) mg/dL HDL Cholesterol 63 H (40-60) mg/dL Urine Blood Trace H (Negative) Urine Bacteria Rare H (None) /hpf Assessment and Plan Plan: Assessment: 1 bilateral upper lobe pulmonary opacity/infiltrate which has a masslike appearance. Favor pneumonia over malignancy specially the patient had a CAT scan of the chest that was done October 2017 and these findings were not present back then. He presented to the hospital because of fever and chest pains push on the left. I favor infectious causes . I do not think this is a tuberculosis infection knowing that the patient had a normal CAT scan of the chest back in October 2017 and this is rather quick and acute for tuberculosis. As such, I do not think there is a need for isolating this patient is point tender especially if he does not have any exposure to TB. 2 left paratracheal lymphadenopathy, measuring 1.5 cm in size, unchanged since October 2017 3 remote history of DVT and pulmonary embolism back in 2012, current CT angios the chest shows evidence of PE 4 depression with previous history of suicidal intentions and ideations, none for now 5 history of alcoholism 6 smoker 7 COPD 8 history of coronary artery disease 9 psoriasis 10 chronic back pain 11 peripheral neuropathy 12 hyperlipidemia 13 chronic pain Plan: Continue current antibiotic coverage, continue nebulized bronchodilators, obtain sputum for culture, no fever or chills, patient is feeling better on today's exam, smoking cessation counseling was done, patient will need outpatient follow-up with another CAT scan and possible bronchoscopy if the pulmonary inf iltrates remain unchanged. Continue GI and DVT prophylaxis, I performed a history & physical examination of the patient and discussed their management with my nurse practitioner, Myra Sutton. I reviewed the nurse practitioner's note and agree with the documented findings and plan of care. Lung sounds are positive for diffuse bilateral crackles. The findings and the impression was discussed with the patient. I attest to the documentation by the nurse practitioner. Time with Patient: Less than 30
[2018-06-18] MEDS ORDERED: LEVOFLOXACIN 750MG-D5W PMX 750 MG in DEXTROSE/WATER 1 150ML.BAG IVPB SCH (16:00)
[2018-06-18] MEDS: ATORVASTATIN 20 MG TAB PO SCH (20:54)
[2018-06-18] MEDS: AZITHROMYCIN 500 MG in SODIUM CHLORIDE 0.9% 250 ML IVPB SCH (20:55)
[2018-06-18] MEDS: NORTRIPTYLINE 25 MG CAP PO SCH (21:00)
[2018-06-19] MEDS: IPRATROPIUM-ALBUTEROL 3 ML NEB INHALATION SCH ×3 (04:06→12:49)
[2018-06-19] MEDS: HYDROcodone/APAP 5-325MG 1 EACH TAB PO PRN ×2 (04:24→10:23)
[2018-06-19 07:02] LABS: Basophils % (A) 0 %; Eosinophils % (A) 1 %; HCT 35.7 % (39.0-53.0); HGB 11.6 gm/dL (13.0-17.5); Lymphocytes # (A) 2.7 k/uL (1.0-4.8); Lymphocytes % (A) 39 %; MCH 33.8 pg (25.0-35.0); MCHC 32.5 g/dL (31.0-37.0); MCV 104.1 fL (80.0-100.0); Macrocytosis Moderate; Mean Platelet Volume 7.3; Monocytes # (A) 0.5 k/uL (0-1.0); Monocytes % (A) 7 %; Neutrophils # (A) 3.6 k/uL (1.3-7.7); Neutrophils % (A) 52 %; Platelet Count 182 k/uL (150-450); RBC 3.43 m/uL (4.30-5.90); RDW 14.9 % (11.5-15.5); WBC 6.9 k/uL (3.8-10.6)
[2018-06-19] MEDS: SYMBICORT 160-4.5 MCG INHALER INHALATION SCH (07:41)
[2018-06-19] MEDS: FLUTICASONE 110 MCG INHALER INHALATION SCH (07:41)
[2018-06-19 08:25] LABS: Calcium 8.7 mg/dL (8.4-10.2); Potassium 4.3 mmol/L (3.5-5.1)
--- NOTE | 2018-06-19 08:27 | CONS ---
CONSULTATION DATE OF SERVICE: 06/18/2018 REASON FOR CONSULTATION: Pneumonia, question of TB. HISTORY OF PRESENT ILLNESS: The patient is a 57-year-old male presenting to the ER at [facility] with chief complaints of chest pain mostly over the anterior chest area. The patient described the pain to be mostly when he takes a deep breath and cough. Patient's pain intensity is about 5 to 6 out of 10, and no radiation. The patient's cough is mildly productive with some yellowish sputum. No hemoptysis. The patient denies significant URI symptoms. Denies having any nausea, no vomiting. The patient's wound has been going on for a few days. Denies having any night sweats or any weight loss. With these symptoms, the patient presented to the ER where the patient was evaluated by the ER physician. On presentation, the patient did have a chest x-ray which shows possibly alveolitis, early interstitial edema. The patient did have a CT angiogram that was negative for PE. However, it did show right apical pulmonary mass and left apical pulmonary nodule that should be considered neoplasm until proven otherwise with associated mediastinal adenopathy. The patient on presentation did have a fever of 103.2 degrees Fahrenheit. The patient did have tachycardia with heart rates in 92s, highest. Patient was not hypoxic. White count was normal as well. The patient had been started on Rocephin and Zithromax and admitted to hospital. Infectious Disease was consulted for antibiotic management and concern for possible TB. However, as mentioned earlier, the patient's symptoms has been acute and not chronic and does not provide any history of exposure to somebody with tuberculosis. REVIEW OF SYSTEMS: Positive points have been mentioned in HPI. The rest of the review of systems has been negative. PAST MEDICAL HISTORY: COPD, DVT, hyperlipidemia, [place], osteoarthritis, pulmonary embolism, and prostate disorder. PAST SURGICAL HISTORY: ORIF left hip, plate/screws. SOCIAL HISTORY: Current everyday smoker. Patient daily drinks. No drug use. FAMILY HISTORY: Father history of [place] in his 60s. Mother history of [place] in her 60s as well. ALLERGIES: No known drug allergies. MEDICATIONS: The patient is currently on Rocephin 1 gram daily. He is also on Zithromax, Ativan, Motrin, nicotine patch, Nitrostat, Pamelor, Protonix, Imitrex, Restoril, Ultram, Lipitor, aspirin, Tylenol, [place], DuoNeb. PHYSICAL EXAMINATION: On examination, blood pressure is 103/71 with a pulse of 63, temperature of 98.3, T-max was 103. He is currently 98% on room air. General description is a middle aged male up in the bed in no distress. No tachypnea or accessory muscle of respiration use. HEENT examination shows slight pallor. No scleral icterus. Oral mucous membrane is dry. No pharyngeal erythema or thrush. NECK: Trachea central. No thyromegaly. LUNGS: Unlabored breathing, decreased breath sounds . No significant wheeze or crackle. HEART: S1, S2. Regular rate and rhythm. ABDOMEN: Soft, no tenderness. No guarding or rigidity. EXTREMITIES: No edema of feet. SKIN EXAMINATION: No rash or masses palpable. NEUROLOGICAL: Patient is awake, alert, and oriented x3. Mood and affect normal. LABS: Hemoglobin is 11, white count 7.5. BUN of 16, creatinine 0.89. Electrolytes have been normal. Liver enzymes are normal. Influenza serology was negative. Chest x-ray and CT report as mentioned above. DIAGNOSTIC IMPRESSION AND PLAN: Patient admitted to the hospital with fever, left sided chest pain, in this patient who did have a CT angiogram that was negative for PE; however, did show evidence of a right upper lobe mass/pneumonia, more likely community-acquired pneumonia. Clinically doubt pulmonary tuberculosis. The patient has previous radiological studies which did not show any abnormality. The patient with no exposure to somebody known to have tuberculosis and the patient's symptoms are acute not chronic with no weight loss, no night sweats at the patient's fever seemed to respond to the Rocephin and Zithromax. PLAN: 1. Will try to obtain sputum for Gram stain culture. 2. Rocephin 1 gram daily and Zithromax should provide for underlying pneumonia possible community acquired. 3. The patient should have a chest x-ray or CT at the end of his antibiotic therapy to make sure his right upper lobe pneumonia or mass have resolved. If not, the patient will benefit from bronchoscopy and biopsy. 4. We will follow up on clinical condition and culture to further adjust medication if needed. Thank you for this consultation. Will follow this patient along with you. MMODL / IJN: [id number] /
[2018-06-19] MEDS: ENOXAPARIN 40 MG/0.4 ML SYRINGE SQ SCH (08:42)
[2018-06-19] MEDS: traMADol 50 MG TAB PO SCH (08:42)
[2018-06-19] MEDS: NICOTINE 14MG/24HR PATCH TRANSDERM SCH (08:42)
[2018-06-19] MEDS: PANTOPRAZOLE 40 MG TABLET PO SCH (08:43)
[2018-06-19] MEDS: ASPIRIN 81 MG PO SCH (08:45)
[2018-06-19] MEDS: CHOLECALCIFEROL 1,000 UNIT TAB PO SCH (08:45)
[2018-06-19] MEDS: GABAPENTIN 300 MG CAP PO SCH (08:45)
[2018-06-19] MEDS: CYANOCOBALAMIN 500 MCG TAB PO SCH (08:45)
[2018-06-19 10:31] VITALS: RESP 18
[2018-06-19 11:42] VITALS: BP 117/68; TEMP 98.3
[2018-06-19 13:02] VITALS: PULSE 74
--- NOTE | 2018-06-19 13:24 | P.PN ---
Subjective Progress Note Date: 06/19/18 Principal diagnosis: Bilateral pneumonia 87-year-old male patient is coming into the emergency department because of chest pain mainly across the left anterior chest area and salicylate shortness of breath. He has a congested cough. Unable to bring up much sputum. He had a fever of 103. Currently is afebrile. His pain is slightly worse with deep breathing. No hemoptysis. No weight loss. no other constitutional symptoms. No exposure to TB. He is currently living with his brother. At one point he was homeless. CAT scan of the chest was done and patient was found to have no evidence of any pulmonary embolism. There was a new right upper lobe masslike consolidation measuring 3.3 cm in size in addition to another 2.4 cm left upper lobe subpleural pulmonary infiltrates and these were not present on previous CAT scan of the chest was done on 11/17/2017. There is also stable based on lymph node measuring 1.5 cm and the left paratracheal area. The patient was started on a combination of Rocephin and Zithromax. He was noted to the hospital for further evaluation of pulmonary consultation was requested. He is hemodynamically stable. Is a poor historian. Is a chronic smoker. [facility]. No leukocytosis. Rest of the blood work and electrodes are all within normal limits. He has history of chronic alcoholism. He also has history of COPD. He reported to drink heavily in the past. He was Hospital as back in October 2017 for a similar left-sided chest pain. On 06/18/2018 patient seen in follow-up. He is on room air, he is breathing easier today, denies any chest pain on today's exam. 97% on room air, he is afebrile, hemodynamically stable, he is being treated for acute pneumonia, he is on a combination of Zithromax and Rocephin. Lung sounds reveal coarse rales bilaterally, no fever or chills, no diaphoresis. Patient is ambulating in the room, tolerating activity well, The patient is seen today 06/19/2018 in follow-up on the selective care unit. He is currently awake and alert in no acute distress. He continues with a loose nonproductive cough. He does complaining of a headache. He is currently m aintaining good O2 saturations in the mid 90s on room air. He's been afebrile. Hemodynamically stable. Blood cultures reveal no growth. White count 6.9. Hemoglobin 11.6. Creatinine 1.15. He remains on DuoNeb inhalations, ceftriaxone and azithromycin. Objective - Vital Signs Vital signs: Vital Signs Temp 98.3 F 06/19/18 11:39 Pulse 74 06/19/18 13:01 Resp 18 06/19/18 11:39 BP 117/68 06/19/18 11:39 Pulse Ox 96 06/19/18 11:39 Intake & Output 06/18/18 06/19/18 06/19/18 18:59 06:59 18:59 Intake Total 693 720 Balance 693 720 Weight 78.4 kg Intake: Oral 693 720 Other: Voiding Method Toilet Toilet # Voids 2 1 - Exam GENERAL EXAM: Alert, pleasant, 57-year-old white male comfortable in no apparent distress. On room air. HEAD: Normocephalic/atraumatic. EYES: Normal reaction of pupils, equal size. Conjunctiva pink, sclera white. NOSE: Clear with pink turbinates. THROAT: No erythema or exudates. NECK: No masses, no JVD, no thyroid enlargement, no adenopathy. CHEST: No chest wall deformity. Symmetrical expansion. LUNGS: Equal air entry with diffuse crackles bilaterally CVS: Regular rate and rhythm, normal S1 and S2, no gallops, no murmurs, no rubs ABDOMEN: Soft, nontender. No hepatosplenomegaly, normal bowel sounds, no guarding or rigidity. EXTREMITIES: No clubbing, no edema, no cyanosis, 2+ pulses and upper and lower extremities. MUSCULOSKELETAL: Muscle strength and tone normal. SPINE: No scoliosis or deformity SKIN: No rashes CENTRAL NERVOUS SYSTEM: Alert and oriented -3. No focal deficits, tone is normal in all 4 extremities. PSYCHIATRIC: Alert and oriented -3. Appropriate affect. Intact judgment and insight. - Labs CBC & Chem 7: 06/19/18 05:51 06/19/18 05:51 Labs: Abnormal Lab Results - Last 24 Hours (Table) 06/19/18 06/19/18 Range/Units 05:51 05:51 RBC 3.43 L (4.30-5.90) m/uL Hgb 11.6 L (13.0-17.5) gm/dL Hct 35.7 L (39.0-53.0) % MCV 104.1 H (80.0-100.0) fL Sodium 134 L (137-145) mmol/L Glucose 115 H (74-99) mg/dL Microbiology - Last 24 Hours (Table) 06/17/18 13:43 Blood Culture - Preliminary Blood No Growth after 24 hours Assessment and Plan Assessment: Assessment: 1 bilateral upper lobe pulmonary opacity/infiltrate which has a masslike appearance. Favor pneumonia over malignancy specially the patient had a CAT scan of the chest that was done October 2017 and these findings were not present back then. He presented to the hospital because of fever and chest pains push on the left. Favor infectious causes . Doubt tuberculosis infection knowing that the patient had a normal CAT scan of the chest back in October 2017 and this is rather quick and acute for tuberculosis. 2 left paratracheal lymphadenopathy, measuring 1.5 cm in size, unchanged since October 2017 3 remote history of DVT and pulmonary embolism back in 2012, current CT angios the chest shows NO evidence of PE 4 depression with previous history of suicidal intentions and ideations, none for now 5 history of alcoholism 6 smoker 7 COPD 8 history of coronary artery disease 9 psoriasis 10 chronic back pain 11 peripheral neuropathy 12 hyperlipidemia 13 chronic pain Plan: The patient was seen and evaluated by Dr. Morley. He is improved but still not quite back to his baseline. He remains on bronchodilators, ceftriaxone and azithromycin. ID is on the case as well. We will repeat a chest x-ray in the a.m. He will need follow-up CAT scan and possible bronchoscopy with biopsies in the outpatient setting. He is again educated regarding the importance of complete smoking cessation. NicoDerm patch remains in place. We will continue to follow make further recommendations based on his clinical status. I, the cosigning physician, performed a history & physical examination of the patient. Lungs sounds with bilateral scattered rhonchi. Maintaining good O2 saturations in the 90s on room air. I discussed the assessment and plan of care with my nurse practitioner, Nadia Lockett. I attest to the above note as dictated by her.
--- NOTE | 2018-06-19 16:54 | PN ---
PROGRESS NOTE DATE OF SERVICE: 06/19/2018 REASON FOR FOLLOWUP: Right upper lobe pneumonia. INTERVAL HISTORY: The patient is currently afebrile. The patient is breathing comfortably. Patient's chest pain has improved. He did have some cough, not bringing up any sputum. No nausea. No vomiting. No abdominal pain. No diarrhea. PHYSICAL EXAMINATION: Blood pressure 117/68 with a pulse of 71, temperature 98.3. He is 96% on room air. General description is a middle-aged male up in the bed in no distress. RESPIRATORY SYSTEM: Unlabored breathing with decreased breath sounds at the base. No wheeze. HEART: S1, S2. Regular rate and rhythm. ABDOMEN: Soft. No tenderness. LABS: Hemoglobin is 11.7, white count 6.9 with a BUN of 16, creatinine 1.15. Blood culture has been negative. Sputum not collected. DIAGNOSTIC IMPRESSION AND PLAN: Patient with right upper lobe pneumonia with concern for finding of possible malignancy. Patient's fever has resolved on Rocephin and Zithromax with a question of possible community-acquired pneumonia underlying postobstructive pneumonia, which is a possibility. Patient's antibiotics will be switched over to Augmentin 875 b.i.d. for another 10 days with close outpatient followup. Patient to have a repeat CT scan, pulmonary evaluation at the end of antibiotic therapy to make sure there is no evidence of any malignancy. Questions and concerns were answered. Prescription was sent to the pharmacy. MMHECTORL / SANDRAN: [id number] /
--- NOTE | 2018-06-19 17:33 | P.PN ---
Subjective Progress Note Date: 06/18/18 Interval history: This a 57-year-old gentleman admitted with bilateral upper lobe opacity versus infiltrate, with masslike appearance, possible pneumonia , developed pulmonary tuberculosis and multiple other medical issues. Evaluated by pulmonary and infectious disease with recommendations noted. Maintained on IV antibiotics of Zithromax and Rocephin, nebulized bronchodilators. Nonproductive cough. Maintaining O2 sats in the high 90s on room air. Afebrile. Tolerating minimal exertion in room. Echo reporting normal LV function, EF 55- 60%. Objective - Vital Signs Vital signs: Vital Signs Temp 98.3 F 06/18/18 11:25 Pulse 60 06/18/18 15:39 Resp 18 06/18/18 11:25 BP 103/71 06/18/18 11:25 Pulse Ox 97 06/18/18 07:55 Intake & Output 06/17/18 06/18/18 06/18/18 18:59 06:59 18:59 Intake Total 350 582 Balance 350 582 Weight 77.111 kg Intake: Intake, IV Titration 350 Amount Azithromycin 500 mg In 250 Sodium Chloride 0.9% 250 ml @ 250 mls/hr IVPB HS LEIGH Rx#:[id number] cefTRIAXone 1 gm In 100 Sodium Chloride 0.9% 50 ml @ 100 mls/hr IVPB Q24H LEIGH Rx#:[id number] Oral 582 Other: Voiding Method Toilet # Voids 2 2 - Exam PHYSICAL EXAM: VITAL SIGNS: As above GENERAL: Sitting up in bed, no acute distress HEENT: Conjunctivae normal. eyes normal. Oral mucosa moist NECK: No JVD. No thyroid enlargement. No LNs CARDIOVASCULAR: S1, S2 muffled. No murmur, no rubs, no gallops RESPIRATION: Breath sounds diminished with fine bibasilar crackles. No rhonchi, no wheezing .No bronchial breathing. ABDOMEN: Soft, nontender . No guarding. no masses palpable. Bowel sounds heard. LEGS: No edema. no swelling. PSYCHIATRY: Alert and oriented -3, mood and affect normal. NERVOUS SYSTEM: No focal deficits. Skin: no rash - Labs CBC & Chem 7: 06/19/18 05:51 06/19/18 05:51 Labs: Abnormal Lab Results - Last 24 Hours (Table) 06/17/18 06/18/18 06/18/18 Range/Units 17:38 05:52 05:52 RBC 3.22 L (4.30-5.90) m/uL Hgb 11.0 L (13.0-17.5) gm/dL Hct 33.2 L (39.0-53.0) % MCV 102.9 H (80.0-100.0) fL Sodium 135 L (137-145) mmol/L Glucose 135 H (74-99) mg/dL HDL Cholesterol 63 H (40-60) mg/dL Urine Blood Trace H (Negative) Urine Bacteria Rare H (None) /hpf Microbiology - Last 24 Hours (Table) 06/17/18 13:43 Blood Culture - Preliminary Blood No Growth after 24 hours Assessment and Plan Assessment: -Possible acute bilateral pneumonia, right greater than left, community- acquired. Possible community-acquired pneumonia with underlying postobstructive pneumonia. -Rule out malignancy or tuberculosis. TB doubtful given normal computed tomography scan October 2017, no exposure to TB. Infectious disease recommends follow-up CT after antibiotic therapy completed to rule out malignancy. Possible outpatient bronchoscopy. -Left paratracheal lymphadenopathy, unchanged since October 2017 as per pulmonary -COPD -EtOH abuse -CAD with history of [place] -History of homelessness previously -Chronic pain syndrome Plan: Continue on current medication regime ,monitoring and symptomatic treatment. Sputum not collected, nonproductive cough. Maintain nebulized bronchodilators, antibiotics. Aggressive pulmonary toileting. Smoking cessation readdressed. Increase ambulation as tolerated. Discharge planning in progress for tomorrow pending pulmonary clearance. The impression and plan of care has been dictated as directed. : I performed a history and examination of this patient, discussed the same with the dictator. I agree with the dictator's note ,documented as a scribe. Any additional findings or plans will be noted.
--- NOTE | 2018-06-19 17:37 | P.DS ---
Providers Date of admission: 06/17/18 17:48 Expected date of discharge: 06/19/18 Attending physician: Shantal Hernandez Consults: 06/17/18 17:48 Consult Physician Urgent Consulting Provider: Ezequiel Morley Consult Reason/Comments: cp, sob, pulmonary mass, copd Do you want consulting provider notified?: Yes 06/17/18 19:04 Consult Physician Routine Consulting Provider: Trupti Gaitan Consult Reason/Comments: pneumonia/TB?? Do you want consulting provider notified?: Yes Primary care physician: [facility] Hospital Course: Final diagnoses -Possible acute bilateral pneumonia, right greater than left, community- acquired. Possible community-acquired pneumonia with underlying postobstructive pneumonia. -Rule out malignancy or tuberculosis. TB doubtful given normal computed tomography scan October 2017, no exposure to TB. Infectious disease recommends follow-up CT after antibiotic therapy completed to rule out malignancy. Possible outpatient bronchoscopy. -Left paratracheal lymphadenopathy, unchanged since October 2017 as per pulmonary -COPD -EtOH abuse -CAD with history of [place] -History of homelessness previously -Chronic pain syndrome Hospital course:This a 57-year-old gentleman admitted with bilateral upper lobe opacity versus infiltrate, with masslike appearance, possible pneumonia , developed pulmonary tuberculosis and multiple other medical issues. Evaluated by pulmonary and infectious disease with recommendations noted. Maintained on IV antibiotics of Zithromax and Rocephin, nebulized bronchodilators. Nonproductive cough. Maintaining O2 sats in the high 90s on room air. Afebrile. Tolerating minimal exertion in room. Echo reporting normal LV function, EF 55- 60%. Significant clinical improvement. Cleared by all consults for discharge. Patient is being discharged home in a stable condition with guarded prognosis. EXAM: GENERAL: Alert and oriented 3, no acute distress CARDIOVASCULAR: S1, S2 muffled. No murmur, no rubs, no gallops RESPIRATION: Breath sounds diminished with fine bibasilar crackles. No rhonchi, no wheezing . ABDOMEN: Soft, nontender . No guarding. no masses palpable. Bowel sounds heard. NERVOUS SYSTEM: No focal deficits. The impression and plan of care has been dictated as directed. : I performed a history and examination of this patient, discussed the same with the dictator. I agree with the dictator's note ,documented as a scribe. Any additional findings or plans will be noted. Time taken: 35 minutes Patient Condition at Discharge: Stable Plan - Discharge Summary New Discharge Prescriptions: New Nicotine 14Mg/24Hr Patch [Habitrol] 1 patch TRANSDERM DAILY #30 patch Pantoprazole [Protonix] 40 mg PO AC-BRKFST #30 tablet. Acetaminophen Tab [Tylenol] 650 mg PO Q4HR PRN tab PRN Reason: Mild Pain Amoxic-Pot Clav 875-125Mg [Augmentin 875-125] 1 tab PO Q12HR #20 tablet Continue Atorvastatin [Lipitor] 20 mg PO HS #30 tab Cyanocobalamin [Vitamin B-12] 1,000 mcg PO DAILY #30 tab Nitroglycerin Sl Tabs [Nitrostat] 0.4 mg SUBLINGUAL Q5M PRN #30 tab PRN Reason: Chest Pain Gabapentin [Neurontin] 300 mg PO BID Aspirin EC [Ecotrin Low Dose] 81 mg PO DAILY Cholecalciferol [Vitamin D3] 5,000 unit PO DAILY SUMAtriptan SUCCINATE [Imitrex] 25 mg PO Q4-6H PRN MDD 3 TABS PRN Reason: Migraine Headache Nortriptyline [Pamelor] 25 mg PO HS traMADol HCL [Ultram] 50 mg PO BID Budesonide [Pulmicort Flexhaler] 1 puff INHALATION RT-BID Cyanocobalamin [Vitamin B-12 Injection] 1,000 mcg SQ Q7D Changed Ibuprofen [Motrin] 400 mg PO TID PRN #0 PRN Reason: Pain Albuterol Inhaler [Ventolin Hfa Inhaler] 2 puff INHALATION QID #1 inh Discharge Medication List Atorvastatin [Lipitor] 20 mg PO HS #30 tab 02/04/16 [Rx] Cyanocobalamin [Vitamin B-12] 1,000 mcg PO DAILY #30 tab 02/04/16 [Rx] Nitroglycerin Sl Tabs [Nitrostat] 0.4 mg SUBLINGUAL Q5M PRN #30 tab 02/04/16 [Rx] Aspirin EC [Ecotrin Low Dose] 81 mg PO DAILY 03/12/16 [History] Gabapentin [Neurontin] 300 mg PO BID 03/12/16 [History] Cholecalciferol [Vitamin D3] 5,000 unit PO DAILY 11/12/17 [History] Budesonide [Pulmicort Flexhaler] 1 puff INHALATION RT-BID 06/17/18 [History] Cyanocobalamin [Vitamin B-12 Injection] 1,000 mcg SQ Q7D 06/17/18 [History] Nortriptyline [Pamelor] 25 mg PO HS 06/17/18 [History] SUMAtriptan SUCCINATE [Imitrex] 25 mg PO Q4-6H PRN MDD 3 TABS 06/17/18 [History] traMADol HCL [Ultram] 50 mg PO BID 06/17/18 [History] Acetaminophen Tab [Tylenol] 650 mg PO Q4HR PRN tab 06/19/18 [Rx] Albuterol Inhaler [Ventolin Hfa Inhaler] 2 puff INHALATION QID #1 inh 06/19/18 [Rx] Amoxic-Pot Clav 875-125Mg [Augmentin 875-125] 1 tab PO Q12HR #20 tablet 06/19/18 [Rx] Ibuprofen [Motrin] 400 mg PO TID PRN #0 06/19/18 [Rx] Nicotine 14Mg/24Hr Patch [Habitrol] 1 patch TRANSDERM DAILY #30 patch 06/19/18 [Rx] Pantoprazole [Protonix] 40 mg PO AC-BRKFST #30 tablet. 06/19/18 [Rx] Follow up Appointment(s)/Referral(s): Nadia Lockett NPC [Nurse Practitioner] - 07/09/18 2:30 pm (Sunday) [facility] [Primary Care Provider] - 06/24/18 1:30 pm (Sunday) Activity/Diet/Wound Care/Special Instructions: Antibiotics as per ID Discharge Disposition: HOME SELF-CARE
[2018-06-19] MEDS ORDERED: AZITHROMYCIN 500 MG TAB PO SCH (21:00)
[2018-06-21] MEDS ORDERED: CYANOCOBALAMIN 1,000 MCG/ML 1 ML VIAL SQ SCH (09:00)
== END 2018-06-19 17:02 | disposition home or self-care (01) | DRG 194 ==
LOC: EC 12:37 → 3SCARD 17:48
PROVIDERS: ADMIT Hospitalist; ATTEND Hospitalist
DX: J15.9 Unspecified bacterial pneumonia (principal); E87.1 Hypo-osmolality and hyponatremia; J44.0 Chronic obstructive pulmonary disease with (acute) lower respiratory infection; D53.9 Nutritional anemia, unspecified; D69.6 Thrombocytopenia, unspecified; E78.5 Hyperlipidemia, unspecified; F10.20 Alcohol dependence, uncomplicated; F17.210 Nicotine dependence, cigarettes, uncomplicated; F32.9 Major depressive disorder, single episode, unspecified; G62.9 Polyneuropathy, unspecified; G89.4 Chronic pain syndrome; I25.10 Atherosclerotic heart disease of native coronary artery without angina pectoris; I25.2 Old myocardial infarction; I73.9 Peripheral vascular disease, unspecified; L40.9 Psoriasis, unspecified; N40.0 Benign prostatic hyperplasia without lower urinary tract symptoms; Z79.82 Long term (current) use of aspirin; Z79.899 Other long term (current) drug therapy; Z82.49 Family history of ischemic heart disease and other diseases of the circulatory system; Z86.711 Personal history of pulmonary embolism; Z86.718 Personal history of other venous thrombosis and embolism; Z71.6 Tobacco abuse counseling; R91.1 Solitary pulmonary nodule; R59.0 Localized enlarged lymph nodes; Z87.11 Personal history of peptic ulcer disease; M19.90 Unspecified osteoarthritis, unspecified site
CPT/HCPCS: 36415; 71046; 71275; 80048; 80053; 80061; 81001; 83605; 83735; 83880; 84153; 84484; 85025; 85379; 85610; 85730; 87040; 87502; 93005; 93306; 94640; 96365; 96375; 99285

== ENCOUNTER → 2018-09-12 | Outpatient (CLI) | payer OTHER ==
--- NOTE | 2018-09-12 20:41 | CT ---
EXAMINATION TYPE: CT chest w con DATE OF EXAM: 09/12/2018 COMPARISON: 06/17/2018 HISTORY: 57-year-old male with pain and shortness of breath, Prior abnormal lung field. TECHNIQUE: Contiguous axial scanning of the chest after the administration of 100ml mL of Isovue 300. Coronal/sagittal reconstructions performed. CT DLP: 470mGycm. Automatic exposure control utilized for a dose reduction. FINDINGS: Heart normal size without pericardial effusion. Coronary vessel calcifications are present. Aorta normal caliber with conventional arch vessel branching anatomy. The previous enlarged mediastinal lymph nodes have improved. Residual prominent 1 cm left tracheobron chial angle lymph node remains previously having measured 1.4 cm. There is an interval resolution of the previous rounded area of consolidation medial right upper lobe abutting the mediastinum in the previous anterior left apical nodule. Residual areas of linear spicu lation and minimal associated cystic change remains behind favored to represent scar formation. No pl eural effusion or new consolidation. Visualized upper abdomen shows a hilar splenule. Bones: Endplate spondylosis mid to lower thoracic spine. IMPRESSION: 1. Improvement with resolution of the previous round right upper lobe consolidation and anterior left apical nodule. There is residual linear spiculation and minimal associated cystic change at both sit es favored to represent scarring. Additional six-month follow-up can reassess. 2. There is a residual prominent 1 cm left tracheobronchial angle lymph node previously having measur ed 1.4 cm. The other enlarged mediastinal lymph nodes have resolved. Findings suggest improvement in infectious etiology.
== END | disposition home or self-care (01) ==
LOC: RADCTMAIN 16:58
PROVIDERS: ATTEND Internal Medicine Critical Care Medicine
DX: J98.4 Other disorders of lung (principal); R91.8 Other nonspecific abnormal finding of lung field
CPT/HCPCS: 71260; Q9967

== ENCOUNTER 2018-10-07 18:41 | Inpatient (IN) | payer OTHER ==
--- NOTE | 2018-10-07 21:23 | ED ---
Extremity Problem HPI - General Chief complaint: Extremity Problem,Nontraumatic Stated complaint: leg & ankle swelling Time Seen by Provider: 10/07/18 21:00 Source: patient Mode of arrival: ambulatory Limitations: no limitations - History of Present Illness Initial comments: 's patient is 57-year-old man with history of left calf pain and swelling going on 3 days now. He does have previous history of having a DVT in his right leg that he states was over a year ago. Patient states he is not currently taking any blood thinner other than aspirin once a day. The patient denies fever or chills, chest pain, dyspnea, hemoptysis, palpitations, lightheadedness or syncope. MD Complaint: extremity pain, extremity swelling Onset/Timin -: days(s) Location: left, lower extremity History of Same: No Radiation: none Quality: dull Consistency: constant Improves with: nothing Worsens with: walking Associated Symptoms: denies other symptoms - Related Data Home Medications Medication Instructions Recorded Confirmed Aspirin EC [Ecotrin Low Dose] 81 mg PO DAILY 03/12/16 10/08/18 Gabapentin [Neurontin] 300 mg PO BID 03/12/16 10/08/18 Cholecalciferol [Vitamin D3 (25 5,000 unit PO DAILY 11/12/17 10/08/18 Mcg = 1000 Iu)] Budesonide [Pulmicort Flexhaler] 1 puff INHALATION RT-BID 06/17/18 10/08/18 traMADol HCL [Ultram] 50 mg PO BID 06/17/18 10/08/18 Albuterol Inhaler [Ventolin Hfa 2 puff INHALATION RT-Q4H PRN 10/08/18 10/08/18 Inhaler] Atorvastatin Calcium [Lipitor] 40 mg PO HS 10/08/18 10/08/18 Cyanocobalamin (Vitamin B-12) 1,000 mcg PO DAILY 10/08/18 10/08/18 [Vitamin B-12] Previous Rx's Medication Instructions Recorded Nitroglycerin Sl Tabs [Nitrostat] 0.4 mg SUBLINGUAL Q5M PRN #30 tab 02/04/16 Rivaroxaban [Xarelto Starter Pack] 1 each PO DIRECTED #60 tab 10/08/18 Allergies Allergy/AdvReac Type Severity Reaction Status Date / Time No Known Allergies Allergy Verified 10/08/18 08:48 Review of Systems ROS Statement: Those systems with pertinent positive or pertinent negative responses have been documented in the HPI. ROS Other: All systems not noted in ROS Statement are negative. Constitutional: Denies: fever, chills Respiratory: Denies: cough, dyspnea, hemoptysis Cardiovascular: Denies: chest pain, palpitations, edema, syncope Gastrointestinal: Denies: abdominal pain, nausea, vomiting Musculoskeletal: Denies: back pain Skin: Denies: rash Neurological: Denies: headache, weakness, numbness, paresthesias Past Medical History Past Medical History: Chest Pain / Angina, COPD, Deep Vein Thrombosis (DVT), Hyperlipidemia, Myocardial Infarction (SD), Osteoarthritis (OA), Prostate Disorder, Pulmonary Embolus (PE) Additional Past Medical History / Comment(s): COPD, alcoholism, previous history of a left lower extremity DVT and pulmonary embolism in January 2013, chronic back pain, history of right arm fractures, osteoarthritis, bilateral inguinal hernia, psoriasis, BPH, peripheral vascular disease, peripheral neuropathy, vertigo, insomnia Last Myocardial Infarction Date:: early History of Any Multi-Drug Resistant Organisms: None Reported Past Surgical History: Orthopedic Surgery Additional Past Surgical History / Comment(s): orif lt hip plate/screws have since been removed. Past Anesthesia/Blood Transfusion Reactions: No Reported Reaction Past Psychological History: Anxiety, Depression Smoking Status: Current every day smoker Past Alcohol Use History: Daily, Occasional Past Drug Use History: None Reported - Past Family History Brother(s) Family Medical History: No Reported History Additional Family Medical History / Comment(s): He has 3 brothers with no major medical problems. Patient does not have any sisters. He has 4 children are apparently okay. Father Family Medical History: Myocardial Infarction (SD) Additional Family Medical History / Comment(s): in his 60's [place] Mother Family Medical History: Myocardial Infarction (SD) Additional Family Medical History / Comment(s): in her 60's [place] General Exam Limitations: no limitations General appearance: alert, in no apparent distress Head exam: Present: atraumatic, normocephalic Eye exam: Present: normal appearance Respiratory exam: Present: normal lung sounds bilaterally. Absent: respiratory distress, wheezes, rales, rhonchi, stridor Cardiovascular Exam: Present: regular rate, normal rhythm, normal heart sounds, other (Dorsalis pedis pulses are strong and symmetric. Normal capillary refill). Absent: systolic murmur, diastolic murmur, rubs, gallop GI/Abdominal exam: Present: soft. Absent: distended, tenderness, guarding, rebound, rigid, mass Extremities exam: Present: full ROM, tenderness, normal capillary refill, calf tenderness (Left-sided), other (The patient does have left leg edema to approximately the mid calf. It is mild in severity. Mild amount of warmth and erythema. There is mild tenderness). Absent: joint swelling Back exam: Present: normal inspection. Absent: CVA tenderness (R), CVA tenderness (L) Neurological exam: Present: alert. Absent: motor sensory deficit Skin exam: Present: warm, dry, intact, erythema (Left lower extremity). Absent: rash Course Vital Signs 10/07/18 10/07/18 10/08/18 19:57 23:25 02:09 Temperature 98.7 F 98.5 F Pulse Rate 78 56 L 56 L Respiratory 18 18 18 Rate Blood Pressure 157/88 149/88 150/52 O2 Sat by Pulse 98 97 97 Oximetry 10/08/18 10/08/18 03:40 05:19 Temperature 98.3 F Pulse Rate 56 L 54 L Respiratory 16 18 Rate Blood Pressure 133/88 139/96 O2 Sat by Pulse 96 97 Oximetry Medical Decision Making - Medical Decision Making This patient's 57-year-old man presenting with leg pain and swelling. He does have history of DVT. Duplex Doppler is obtained which does appear to show some DVT present though not fully occluding. There is also some overlying cellulitis and this will be treated. - Lab Data Result diagrams: 10/09/18 05:24 10/08/18 02:03 Lab Results 10/08/18 10/08/18 10/08/18 Range/Units 02:03 02:03 02:03 WBC 4.6 (3.8-10.6) k/uL RBC 3.94 L (4.30-5.90) m/uL Hgb 13.7 (13.0-17.5) gm/dL Hct 39.5 (39.0-53.0) % MCV 100.0 (80.0-100.0) fL MCH 34.6 (25.0-35.0) pg MCHC 34.6 (31.0-37.0) g/dL RDW 14.3 (11.5-15.5) % Plt Count 154 (150-450) k/uL Neutrophils % 35 % Lymphocytes % 50 % Monocytes % 9 % Eosinophils % 3 % Basophils % 1 % Neutrophils # 1.6 (1.3-7.7) k/uL Lymphocytes # 2.3 (1.0-4.8) k/uL Monocytes # 0.4 (0-1.0) k/uL Eosinophils # 0.1 (0-0.7) k/uL Basophils # 0.1 (0-0.2) k/uL PT 9.8 (9.0-12.0) sec INR 0.9 (<1.2) APTT 24.8 (22.0-30.0) sec Sodium 137 (137-145) mmol/L Potassium 4.3 (3.5-5.1) mmol/L Chloride 105 (98-107) mmol/L Carbon Dioxide 23 (22-30) mmol/L Anion Gap 9 mmol/L BUN 11 (9-20) mg/dL Creatinine 1.05 (0.66-1.25) mg/dL Est GFR (CKD-EPI)AfAm >90 (>60 ml/min/1.73 sqM) Est GFR (CKD-EPI)NonAf 80 (>60 ml/min/1.73 sqM) Glucose 88 (74-99) mg/dL Calcium 9.3 (8.4-10.2) mg/dL Total Bilirubin 0.7 (0.2-1.3) mg/dL AST 22 (17-59) U/L ALT 16 L (21-72) U/L Alkaline Phosphatase 68 (38-126) U/L Total Protein 7.2 (6.3-8.2) g/dL Albumin 4.1 (3.5-5.0) g/dL Disposition Clinical Impression: DVT (deep venous thrombosis), Cellulitis Disposition: ADMITTED IP TO THIS HOSP Condition: Fair
--- NOTE | 2018-10-07 23:51 | US ---
EXAM: US Duplex Left Lower Extremity Veins CLINICAL HISTORY: Pain TECHNIQUE: Real-time duplex ultrasound scan of the left lower extremity veins integrating B-mode two-dimensional vascular structure, Doppler spectral analysis, color flow Doppler imaging and compression. COMPARISON: No relevant prior studies available. FINDINGS: Deep veins: Nonocclusive thrombus seen extending from the proximal left calf vein to the proximal femoral vein. Superficial veins: Unremarkable. Soft tissues: No acute findings. No popliteal cyst. Lymph nodes: Prominent left inguinal lymph nodes, largest measuring up to 1.3 cm in short axis. IMPRESSION: Nonocclusive thrombus seen extending from the proximal left calf vein to the proximal femoral vein.
[2018-10-08] MEDS ORDERED: HEPARIN SODIUM,PORCINE 10,000 UNIT/ML 1 ML VIAL IV ONE (01:32)
[2018-10-08] MEDS ORDERED: HEPARIN SODIUM,PORCINE 5,000 UNIT/ML 1 ML VIAL IV PRN (01:32)
[2018-10-08] MEDS: HEPARIN SOD,PORK IN 0.45% NACL 25,000 UNIT in 0.45% NACL 1 250ML.BAG IV SCH (02:00)
[2018-10-08 02:14] LABS: Basophils # (A) 0.1 k/uL (0-0.2); Basophils % (A) 1 %; Eosinophils # (A) 0.1 k/uL (0-0.7); Eosinophils % (A) 3 %; HCT 39.5 % (39.0-53.0); HGB 13.7 gm/dL (13.0-17.5); Lymphocytes # (A) 2.3 k/uL (1.0-4.8); Lymphocytes % (A) 50 %; MCH 34.6 pg (25.0-35.0); MCHC 34.6 g/dL (31.0-37.0); Mean Platelet Volume 7.5; Monocytes # (A) 0.4 k/uL (0-1.0); Monocytes % (A) 9 %; Neutrophils # (A) 1.6 k/uL (1.3-7.7); Neutrophils % (A) 35 %; Platelet Count 154 k/uL (150-450); RBC 3.94 m/uL (4.30-5.90); RDW 14.3 % (11.5-15.5); WBC 4.6 k/uL (3.8-10.6)
[2018-10-08 02:23] LABS: INR 0.9 (<1.2); Partial Thromboplastin Time 24.8 sec (22.0-30.0); Prothrombin Time 9.8 sec (9.0-12.0)
[2018-10-08 02:29] LABS: ALT 16 U/L (21-72); AST 22 U/L (17-59); African American GFR (CKD) >90 (>60 ml/min/1.73 sqM); Albumin 4.1 g/dL (3.5-5.0); Alkaline Phosphatase 68 U/L (38-126); Anion Gap 9 mmol/L; Blood Urea Nitrogen 11 mg/dL (9-20); Calcium 9.3 mg/dL (8.4-10.2); Carbon Dioxide 23 mmol/L (22-30); Chloride 105 mmol/L (98-107); Glucose 88 mg/dL (74-99); Potassium 4.3 mmol/L (3.5-5.1); Sodium 137 mmol/L (137-145); Total Bilirubin 0.7 mg/dL (0.2-1.3); Total Protein 7.2 g/dL (6.3-8.2)
[2018-10-08] MEDS ORDERED: ACETAMINOPHEN TAB 325 MG TAB PO PRN (02:47)
[2018-10-08] MEDS ORDERED: NALOXONE 0.4 MG/ML 1 ML VIAL IV PRN (02:47)
[2018-10-08] MEDS ORDERED: VANCOMYCIN IV PER PHARMACY 1 EACH MISC MISCELLANE PRN (03:09)
[2018-10-08] MEDS ORDERED: VANCOMYCIN 1,500 MG in SODIUM CHLORIDE 0.9% 250 ML IVPB ONE (05:00)
[2018-10-08 06:34] LABS: Basophils # (A) 0.1 k/uL (0-0.2); Basophils % (A) 1 %; Eosinophils # (A) 0.2 k/uL (0-0.7); Eosinophils % (A) 4 %; HCT 40.7 % (39.0-53.0); HGB 13.5 gm/dL (13.0-17.5); Lymphocytes # (A) 2.4 k/uL (1.0-4.8); Lymphocytes % (A) 50 %; MCH 33.7 pg (25.0-35.0); MCHC 33.2 g/dL (31.0-37.0); MCV 101.5 fL (80.0-100.0); Macrocytosis Slight; Mean Platelet Volume 7.5; Monocytes # (A) 0.5 k/uL (0-1.0); Monocytes % (A) 11 %; Neutrophils # (A) 1.5 k/uL (1.3-7.7); Neutrophils % (A) 32 %; Platelet Count 156 k/uL (150-450); RBC 4.01 m/uL (4.30-5.90); RDW 13.4 % (11.5-15.5); WBC 4.8 k/uL (3.8-10.6)
[2018-10-08] MEDS: SODIUM CHLORIDE 0.9% 1,000 ML IV SCH (07:06)
[2018-10-08] MEDS ORDERED: PROCHLORPERAZINE 5 MG TAB PO PRN (08:00)
[2018-10-08] MEDS: BUDESONIDE 1 MG/2 ML NEBU INHALATION SCH ×2 (08:38→18:53)
[2018-10-08] MEDS: ALBUTEROL NEBULIZED 2.5 MG/3 ML INHALATION SCH ×4 (08:38→18:53)
[2018-10-08] MEDS ORDERED: IBUPROFEN 800 MG TAB PO PRN (09:00)
[2018-10-08] MEDS: CYANOCOBALAMIN 500 MCG TAB PO SCH (09:15)
[2018-10-08] MEDS: GABAPENTIN 300 MG CAP PO SCH ×2 (09:15→20:44)
[2018-10-08] MEDS: CHOLECALCIFEROL 1,000 UNIT TAB PO SCH (09:16)
[2018-10-08] MEDS: PANTOPRAZOLE 40 MG TABLET PO SCH (09:16)
[2018-10-08] MEDS: NICOTINE 14MG/24HR PATCH TRANSDERM SCH (09:16)
[2018-10-08] MEDS: ASPIRIN 81 MG PO SCH (09:16)
[2018-10-08] MEDS: traMADol 50 MG TAB PO SCH ×2 (09:18→20:43)
--- NOTE | 2018-10-08 15:36 | XR ---
EXAMINATION TYPE: XR chest 1V DATE OF EXAM: 10/08/2018 COMPARISON: 08/16/2018 HISTORY: Cough TECHNIQUE: Single frontal view of the chest is obtained. FINDINGS: Vague nodularity in the upper lobe on the previous exam is stable. There is a new patchy i nfiltrate in the upper lobe on the right. Underlying COPD and chronic interstitial lung disease suspe cted. IMPRESSION: 1. COPD. Suspect asymmetric patchy infiltrate along the medial aspect of the right upper lobe. This c ould be in the basis of atelectasis rather than pneumonia follow up PA and lateral view of the chest recommended.
--- NOTE | 2018-10-08 16:12 | P.HPIM ---
History of Present Illness H&P Date: 10/08/18 Chief Complaint: Left leg pain Patient is a 57-year-old male with a known history of COPD, history of DVT/PE in 2014-took Anticoagulation only for 1 month at that time, hyperlipidemia and BPH came to ER with the complaints of left calf pain for the past 3 days. Patient says that he was having wound over the left medial ankle for the past 4 days and is having worsening pain and swelling. Denied any fever or chills. No recent injury. No commerce of chest pain or shortness of breath. No headache or dizziness or lightheadedness. No syncopal episode. Denied any history of cardiac problems in the past. Patient does have a history of alcohol abuse and previous suicide attempts. Patient is otherwise currently everyday smoker. Denied any complaints of cough or sputum production. No hematemesis or melena. No dysuria or hematuria. Left lower extremity duplex scan showed nonocclusive thrombus seen from the proximal left calf pain to the proximal femoral vein. Chest x-ray showed COPD. Suspected asymmetric patchy infiltrate along the medial aspect of the right upper lobe. This could be in the basis of atelectasis rather than pneumonia. Follow-up PA and lateral view of the chest recommended. Review of Systems Constitutional: Patient denies any fever or chills . No generalized weakness or weight loss. Abdomen: Patient denied nausea vomiting and diarrhea and abdominal pain. Cardiovascular: Patient denies any chest pain or short of breath no palpitations. Respiratory: patient denied any cough is from production. No shortness of breath Neurologic: Patient denied any numbness or tingling headache. Musculoskeletal: Patient denies any complaints of joint swelling or deformity. Left leg swelling and pain. Skin: Negative Psychiatric: Negative Endocrine: No heat or cold intolerance. No recent weight gain. Genitourinary: No dysuria or hematuria. All other 14 point ROS negative except the above Past Medical History Past Medical History: Chest Pain / Angina, COPD, Deep Vein Thrombosis (DVT), Hyperlipidemia, Myocardial Infarction (SC), Osteoarthritis (OA), Prostate Disorder, Pulmonary Embolus (PE) Additional Past Medical History / Comment(s): COPD, alcoholism, previous history of a left lower extremity DVT and pulmonary embolism in January 2013, chronic lower back pain, history of right arm fractures, osteoarthritis, bilateral inguinal hernia, psoriasis, BPH, peripheral vascular disease, peripheral neuropathy, vertigo, insomnia, prior suicide attempts-not suicidal at this time. Last Myocardial Infarction Date:: early History of Any Multi-Drug Resistant Organisms: None Reported Past Surgical History: Orthopedic Surgery Additional Past Surgical History / Comment(s): orif left hip plate/screws have since been removed. Past Anesthesia/Blood Transfusion Reactions: No Reported Reaction Past Psychological History: Anxiety, Depression Additional Psychological History / Comment(s): He has a walker but does not use it. He cannot drive, no license. He gets to [facility] by bus or walking. Smoking Status: Current every day smoker Past Alcohol Use History: Daily Additional Past Alcohol Use History / Comment(s): Pt started smoking at age 10 smokes 1 ppd. Patient denies any marijuana or street drug use. Patient states he is a recovering alcoholic, drinking 2-3 drinks a couple drinks per week Past Drug Use History: None Reported - Past Family History Brother(s) Family Medical History: No Reported History Additional Family Medical History / Comment(s): He has 3 brothers with no major medical problems. Patient does not have any sisters. He has 4 children are apparently okay. Father Family Medical History: Myocardial Infarction (SC) Additional Family Medical History / Comment(s): in his 60's [place] Mother Family Medical History: Myocardial Infarction (SC) Additional Family Medical History / Comment(s): in her 60's [place] Medications and Allergies Home Medications Medication Instructions Recorded Confirmed Type Nitroglycerin Sl Tabs [Nitrostat] 0.4 mg SUBLINGUAL Q5M PRN #30 tab 02/04/16 10/08/18 Rx Aspirin EC [Ecotrin Low Dose] 81 mg PO DAILY 03/12/16 10/08/18 History Gabapentin [Neurontin] 300 mg PO BID 03/12/16 10/08/18 History Cholecalciferol [Vitamin D3 (25 5,000 unit PO DAILY 11/12/17 10/08/18 History Mcg = 1000 Iu)] Budesonide [Pulmicort Flexhaler] 1 puff INHALATION RT-BID 06/17/18 10/08/18 History traMADol HCL [Ultram] 50 mg PO BID 06/17/18 10/08/18 History Albuterol Inhaler [Ventolin Hfa 2 puff INHALATION RT-Q4H PRN 10/08/18 10/08/18 History Inhaler] Atorvastatin Calcium [Lipitor] 40 mg PO HS 10/08/18 10/08/18 History Cyanocobalamin (Vitamin B-12) 1,000 mcg PO DAILY 10/08/18 10/08/18 History [Vitamin B-12] Ibuprofen [Motrin] 800 mg PO TID PRN 10/08/18 10/08/18 History Rivaroxaban [Xarelto Starter Pack] 1 each PO DIRECTED #60 tab 10/08/18 Rx Allergies Allergy/AdvReac Type Severity Reaction Status Date / Time No Known Allergies Allergy Verified 10/08/18 08:48 Physical Exam Vitals: Vital Signs Temp Pulse Pulse Resp BP BP Pulse Ox 10/08/18 08:58 68 10/08/18 08:42 64 10/08/18 06:25 98.1 F 51 L 20 144/88 98 10/08/18 05:19 98.3 F 54 L 18 139/96 97 10/08/18 03:40 56 L 16 133/88 96 10/08/18 02:09 56 L 18 150/52 97 10/07/18 23:25 98.5 F 56 L 18 149/88 97 10/07/18 19:57 98.7 F 78 18 157/88 98 Intake and Output 10/07/18 10/08/18 10/08/18 22:59 06:59 14:59 Other: Weight 79.379 kg PHYSICAL EXAMINATION: Patient is lying in the bed comfortably, no acute distress, awake alert and oriented.. HEENT: Normocephalic. Neck is supple. Pupils reactive. Nostrils clear. Oral cavity is moist. Ears reveal no drainage. Neck reveals no JVD, carotid bruits, or thyromegaly. CHEST EXAMINATION: Trachea is central. Symmetrical expansion. Lung santoro clear to auscultation and percussion. CARDIAC: Normal S1, S2 with no gallops. No murmurs ABDOMEN: Soft. Bowel sounds normal. No organomegaly. No abdominal bruits. Extremities: 1+ left lower extremity swelling and discoloration due to chronic venous stasis. Small scabbed wound with vomiting and surrounding redness noted on the left medial ankle. Calf tenderness present.. No clubbing or cyanosis Neurologically awake, alert, oriented x3 with well-coordinated movements. No focal deficits noted Skin: No rash or skin lesions. Psychiatric: Coperative. Nonsuicidal Musculoskeletal: No joint swelling or deformity. Normal range of motion. Results CBC & Chem 7: 10/08/18 05:51 10/08/18 02:03 Labs: Abnormal Lab Results - Last 24 Hours (Table) 10/08/18 10/08/18 10/08/18 Range/Units 02:03 02:03 05:51 RBC 3.94 L 4.01 L (4.30-5.90) m/uL MCV 101.5 H (80.0-100.0) fL ALT 16 L (21-72) U/L Thrombosis Risk Factor Assmnt - DVT/VTE Prophylaxis DVT/VTE Prophylaxis: Pharmacologic Prophylaxis ordered - Choose All That Apply Each Factor Represents 1 point: Abnormal pulmonary function (COPD), Age 41-60 years, Obesity (BMI >25), Swollen legs (current) Each Risk Factor Represents 3 Points: History of DVT/PE Thrombosis Risk Factor Assessment Total Risk Factor Score: 7 Thrombosis Risk Factor Assessment Level: High Risk Assessment and Plan Assessment: Acute left lower extremity DVT. Exact etiology unknown. Likely due to leg ce llulitis and sedentary lifestyle Acute left lower extremity/ankle cellulitis. Ongoing nicotine addiction History of DVT/PE in 2012. Patient did not complete anticoagulation. History of [place] Osteoarthritis BPH History of alcohol abuse Psoriasis Peripheral vascular disease Peripheral neuropathy. Nondiabetic prior suicide attempts-not suicidal at this time. Anxiety/depression Plan: Patient will be continued on heparin drip. Will start on oral anticoagulants. Continue with antibiotics in the form of vancomycin. Follow-up culture reports. Patient will be continued on breathing treatments and chest x-ray was done showed right upper lobe atelectasis and follow-up was recommended. Current with the home medications and follow closely. Further recommendations based on the clinical course. Smoking cessation has been counseled extensively. Time with Patient: Greater than 30
[2018-10-08] MEDS: VANCOMYCIN 1,500 MG in SODIUM CHLORIDE 0.9% 250 ML IVPB SCH (17:12)
[2018-10-08] MEDS: ATORVASTATIN 20 MG TAB PO SCH (20:43)
[2018-10-08] MEDS: NORTRIPTYLINE 25 MG CAP PO SCH (20:43)
[2018-10-09 05:40] LABS: Basophils # (A) 0.1 k/uL (0-0.2); Basophils % (A) 1 %; Eosinophils # (A) 0.1 k/uL (0-0.7); Eosinophils % (A) 3 %; HCT 36.6 % (39.0-53.0); HGB 12.5 gm/dL (13.0-17.5); Lymphocytes # (A) 1.9 k/uL (1.0-4.8); Lymphocytes % (A) 50 %; MCH 34.8 pg (25.0-35.0); MCV 102.5 fL (80.0-100.0); Macrocytosis Slight; Mean Platelet Volume 7.3; Monocytes # (A) 0.3 k/uL (0-1.0); Monocytes % (A) 9 %; Neutrophils # (A) 1.3 k/uL (1.3-7.7); Neutrophils % (A) 34 %; Platelet Count 138 k/uL (150-450); RBC 3.57 m/uL (4.30-5.90); RDW 13.8 % (11.5-15.5); WBC 3.8 k/uL (3.8-10.6)
[2018-10-09] MEDS: VANCOMYCIN 1,500 MG in SODIUM CHLORIDE 0.9% 250 ML IVPB SCH ×2 (05:43→17:19)
[2018-10-09] MEDS: SODIUM CHLORIDE 0.9% 1,000 ML IV SCH (06:01)
[2018-10-09] MEDS: HEPARIN SOD,PORK IN 0.45% NACL 25,000 UNIT in 0.45% NACL 1 250ML.BAG IV SCH (06:42)
[2018-10-09] MEDS: NICOTINE 14MG/24HR PATCH TRANSDERM SCH (08:42)
[2018-10-09] MEDS: traMADol 50 MG TAB PO SCH ×2 (08:42→20:41)
[2018-10-09] MEDS: CYANOCOBALAMIN 500 MCG TAB PO SCH (08:42)
[2018-10-09] MEDS: ASPIRIN 81 MG PO SCH (08:42)
[2018-10-09] MEDS: PANTOPRAZOLE 40 MG TABLET PO SCH (08:42)
[2018-10-09] MEDS: GABAPENTIN 300 MG CAP PO SCH ×2 (08:42→20:41)
[2018-10-09] MEDS: CHOLECALCIFEROL 1,000 UNIT TAB PO SCH (08:42)
[2018-10-09] MEDS: BUDESONIDE 1 MG/2 ML NEBU INHALATION SCH ×2 (09:14→19:40)
[2018-10-09] MEDS: ALBUTEROL NEBULIZED 2.5 MG/3 ML INHALATION SCH ×4 (09:14→19:40)
[2018-10-09] MEDS: RIVAROXABAN 15 MG TAB PO SCH ×2 (11:14→17:19)
[2018-10-09] MEDS: NORTRIPTYLINE 25 MG CAP PO SCH (20:41)
[2018-10-09] MEDS: ATORVASTATIN 20 MG TAB PO SCH (20:41)
--- NOTE | 2018-10-10 02:07 | P.PN ---
Subjective Progress Note Date: 10/09/18 Principal diagnosis: Left lower extremity DVT Patient is a 57-year-old male with a known history of COPD, history of DVT/PE in 2015-took Anticoagulation only for 1 month at that time, hyperlipidemia and BPH came to ER with the complaints of left calf pain for the past 3 days. Patient says that he was having wound over the left medial ankle for the past 4 days and is having worsening pain and swelling. Denied any fever or chills. No recent injury. No commerce of chest pain or shortness of breath. No headache or dizziness or lightheadedness. No syncopal episode. Denied any history of cardiac problems in the past. Patient does have a history of alcohol abuse and previous suicide attempts. Patient is otherwise currently everyday smoker. Denied any complaints of cough or sputum production. No hematemesis or melena. No dysuria or hematuria. Left lower extremity duplex scan showed nonocclusive thrombus seen from the proximal left calf pain to the proximal femoral vein. Chest x-ray showed COPD. Suspected asymmetric patchy infiltrate along the medial aspect of the right upper lobe. This could be in the basis of atelectasis rather than pneumonia. Follow-up PA and lateral view of the chest recommended. 10/09/2018 Patient denied any fever or chills. No nausea vomiting. No headache or dizziness. Left leg pain and swelling is improving. Patient is being started on xarelto and IV heparin will be discontinued. Awaiting prior elevation for oral anticoagulants. Currently on vancomycin for lower extremities cellulitis. Current medications reviewed. Objective - Vital Signs Vital signs: Vital Signs Temp 98.5 F 10/09/18 12:28 Pulse 70 10/09/18 19:52 Resp 20 10/09/18 12:28 BP 116/72 10/09/18 12:28 Pulse Ox 96 10/09/18 12:28 Intake & Output 10/09/18 10/09/18 10/10/18 06:59 18:59 06:59 Intake Total 1150 Output Total 1400 1500 Balance -250 -1500 Intake: Intake, IV Titration 250 Amount Heparin Sod,Pork in 0.45% 250 NaCl 25,000 unit In 0.45 % NaCl 1 250ml.bag @ 18 UNITS/KG/HR 14.288 mls/hr IV .[id number] [facility] Rx#: [id number] Oral 900 Output: Urine 1400 1500 Other: Voiding Method Urinal Urinal # Voids 1 # Bowel Movements 0 - Exam PHYSICAL EXAMINATION: Patient is lying in the bed comfortably, no acute distress, awake alert and oriented.. HEENT: Normocephalic. Neck is supple. Pupils reactive. Nostrils clear. Oral cavity is moist. Ears reveal no drainage. Neck reveals no JVD, carotid bruits, or thyromegaly. CHEST EXAMINATION: Trachea is central. Symmetrical expansion. Lung santoro clear to auscultation and percussion. CARDIAC: Normal S1, S2 with no gallops. No murmurs ABDOMEN: Soft. Bowel sounds normal. No organomegaly. No abdominal bruits. Extremities: 1+ left lower extremity swelling and discoloration due to chronic venous stasis. Small scabbed wound with vomiting and surrounding redness noted on the left medial ankle. Calf tenderness present.. No clubbing or cyanosis Neurologically awake, alert, oriented x3 with well-coordinated movements. No focal deficits noted Skin: No rash or skin lesions. Psychiatric: Coperative. Nonsuicidal Musculoskeletal: No joint swelling or deformity. Normal range of motion. - Labs CBC & Chem 7: 10/09/18 05:24 10/08/18 02:03 Labs: Abnormal Lab Results - Last 24 Hours (Table) 10/09/18 10/09/18 Range/Units 05:24 05:24 RBC 3.57 L (4.30-5.90) m/uL Hgb 12.5 L (13.0-17.5) gm/dL Hct 36.6 L (39.0-53.0) % MCV 102.5 H (80.0-100.0) fL Plt Count 138 L (150-450) k/uL APTT 64.6 H (22.0-30.0) sec Microbiology - Last 24 Hours (Table) 10/08/18 05:51 Blood Culture - Preliminary Blood No Growth after 24 hours Assessment and Plan Assessment: Acute left lower extremity DVT. Exact etiology unknown. Likely due to leg cellulitis and sedentary lifestyle Acute left lower extremity/ankle cellulitis. Ongoing nicotine addiction History of DVT/PE in 2012. Patient did not complete anticoagulation. History of [place] Osteoarthritis BPH History of alcohol abuse Psoriasis Peripheral vascular disease Peripheral neuropathy. Nondiabetic prior suicide attempts-not suicidal at this time. Anxiety/depression Plan: Patient w e continued on heparin drip. Changed to oral anticoagulant. Continue with antibiotics in the form of vancomycin. Follow-up culture reports. Patient will be continued on breathing treatments and chest x-ray was done showed right upper lobe atelectasis and follow-up was recommended. Current with the home medications and follow closely. Further recommendations based on the clinical course. Smoking cessation has been counseled extensively. Time with Patient: Greater than 30
[2018-10-10] MEDS: SODIUM CHLORIDE 0.9% 1,000 ML IV SCH (03:28)
[2018-10-10] MEDS ORDERED: VANCOMYCIN TROUGH DUE 1 EACH MISC MISCELLANE ONE (05:00)
[2018-10-10] MEDS: VANCOMYCIN 1,500 MG in SODIUM CHLORIDE 0.9% 250 ML IVPB SCH (05:46)
[2018-10-10 06:14] LABS: Basophils % (A) 1 %; Eosinophils # (A) 0.1 k/uL (0-0.7); Eosinophils % (A) 4 %; HCT 36.4 % (39.0-53.0); HGB 12.4 gm/dL (13.0-17.5); Lymphocytes # (A) 1.5 k/uL (1.0-4.8); Lymphocytes % (A) 42 %; MCH 34.4 pg (25.0-35.0); MCHC 34.1 g/dL (31.0-37.0); MCV 100.9 fL (80.0-100.0); Mean Platelet Volume 7.6; Monocytes # (A) 0.4 k/uL (0-1.0); Monocytes % (A) 13 %; Neutrophils # (A) 1.3 k/uL (1.3-7.7); Neutrophils % (A) 38 %; Platelet Count 156 k/uL (150-450); RDW 13.8 % (11.5-15.5); WBC 3.5 k/uL (3.8-10.6)
[2018-10-10] MEDS: CHOLECALCIFEROL 1,000 UNIT TAB PO SCH (07:51)
[2018-10-10] MEDS: RIVAROXABAN 15 MG TAB PO SCH (07:51)
[2018-10-10] MEDS: PANTOPRAZOLE 40 MG TABLET PO SCH (07:51)
[2018-10-10] MEDS: CYANOCOBALAMIN 500 MCG TAB PO SCH (07:51)
[2018-10-10] MEDS: ASPIRIN 81 MG PO SCH (07:51)
[2018-10-10] MEDS: GABAPENTIN 300 MG CAP PO SCH (07:52)
[2018-10-10] MEDS: NICOTINE 14MG/24HR PATCH TRANSDERM SCH (07:52)
[2018-10-10] MEDS: traMADol 50 MG TAB PO SCH (07:52)
[2018-10-10] MEDS: ALBUTEROL NEBULIZED 2.5 MG/3 ML INHALATION SCH ×2 (08:44→11:30)
[2018-10-10] MEDS: BUDESONIDE 1 MG/2 ML NEBU INHALATION SCH (08:44)
[2018-10-10] MEDS ORDERED: ENOXAPARIN 80 MG/0.8 ML SYRINGE SQ ONE (13:30)
[2018-10-10 14:00] VITALS: BP 126/75; PULSE 70; RESP 18; TEMP 98.5
[2018-10-10] MEDS ORDERED: WARFARIN 5 MG TAB PO ONE ×2 (14:15→15:00)
[2018-10-10 14:54] LABS: INR 0.9 (<1.2)
== END 2018-10-10 15:17 | disposition home or self-care (01) | DRG 300 ==
LOC: EC 18:41 → 4MS4W 10-08 02:50
PROVIDERS: ADMIT Hospitalist; ATTEND Hospitalist
DX: I82.402 Acute embolism and thrombosis of unspecified deep veins of left lower extremity (principal); L03.116 Cellulitis of left lower limb; I73.9 Peripheral vascular disease, unspecified; G62.9 Polyneuropathy, unspecified; E78.5 Hyperlipidemia, unspecified; F10.21 Alcohol dependence, in remission; Z71.6 Tobacco abuse counseling; F17.210 Nicotine dependence, cigarettes, uncomplicated; F32.9 Major depressive disorder, single episode, unspecified; F41.9 Anxiety disorder, unspecified; I25.2 Old myocardial infarction; J44.9 Chronic obstructive pulmonary disease, unspecified; L40.9 Psoriasis, unspecified; N40.0 Benign prostatic hyperplasia without lower urinary tract symptoms; Z79.82 Long term (current) use of aspirin; Z79.899 Other long term (current) drug therapy; Z82.49 Family history of ischemic heart disease and other diseases of the circulatory system; Z86.711 Personal history of pulmonary embolism; Z86.718 Personal history of other venous thrombosis and embolism; Z91.5 Personal history of self-harm; Z72.3 Lack of physical exercise; G89.29 Other chronic pain; M54.5 Low back pain; G47.00 Insomnia, unspecified
CPT/HCPCS: 36415; 71045; 80053; 80202; 82565; 85025; 85610; 85730; 87040; 94640; 96365; 96366; 96376; 99284

== ENCOUNTER 2018-10-19 17:46 | Emergency (ER) | payer OTHER ==
[2018-10-19] MEDS ORDERED: HYDROmorphone 1 MG/ML 1 ML SYRINGE IVP STA ×3 (17:51→21:47)
[2018-10-19 18:15] LABS: Prothrombin Time 10.6 sec (9.0-12.0)
[2018-10-19 18:16] LABS: Basophils # (A) 0.1 k/uL (0-0.2); Basophils % (A) 2 %; Eosinophils # (A) 0.2 k/uL (0-0.7); Eosinophils % (A) 4 %; HCT 35.1 % (39.0-53.0); HGB 12.1 gm/dL (13.0-17.5); Lymphocytes # (A) 2.8 k/uL (1.0-4.8); Lymphocytes % (A) 52 %; MCH 34.2 pg (25.0-35.0); MCHC 34.5 g/dL (31.0-37.0); MCV 99.4 fL (80.0-100.0); Mean Platelet Volume 7.6; Monocytes # (A) 0.7 k/uL (0-1.0); Monocytes % (A) 12 %; Neutrophils # (A) 1.5 k/uL (1.3-7.7); Neutrophils % (A) 28 %; Platelet Count 223 k/uL (150-450); RBC 3.53 m/uL (4.30-5.90); WBC 5.3 k/uL (3.8-10.6)
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
[2018-10-19 18:36] LABS: ALT 17 U/L (21-72); AST 26 U/L (17-59); African American GFR (CKD) >90 (>60 ml/min/1.73 sqM); Albumin 4.3 g/dL (3.5-5.0); Alcohol 19 mg/dL; Alkaline Phosphatase 64 U/L (38-126); Anion Gap 14 mmol/L; Blood Urea Nitrogen 10 mg/dL (9-20); Calcium 9.4 mg/dL (8.4-10.2); Carbon Dioxide 18 mmol/L (22-30); Chloride 104 mmol/L (98-107); Creatine Kinase 110 U/L (55-170); Glucose 90 mg/dL (74-99); Magnesium 2.1 mg/dL (1.6-2.3); Potassium 4.8 mmol/L (3.5-5.1); Sodium 136 mmol/L (137-145); Total Bilirubin 0.5 mg/dL (0.2-1.3); Total Protein 7.5 g/dL (6.3-8.2)
[2018-10-19] MEDS ORDERED: LIDOCAINE 1% INJ 10MG/ML (20 ML MDV) SQ ONE (18:51)
[2018-10-19] MEDS ORDERED: DIPH,PERTUS(ACELL)TETVAC-LF 0.5 ML VIAL IM ONE (18:53)
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
[2018-10-19] MEDS ORDERED: PROPOFOL 10 MG/ML 20 ML VIAL IV ONE ×2 (19:07→19:49)
[2018-10-19] MEDS ORDERED: fentaNYL (PF) 50 MCG/ML 2 ML AMP IV STA (20:06)
[2018-10-19 20:18] VITALS: PULSE 72
--- NOTE | 2018-10-19 20:23 | XR ---
EXAMINATION TYPE: XR tibia fibula RT DATE OF EXAM: 10/19/2018 COMPARISON: Today HISTORY: Post reduction TECHNIQUE: 4 views FINDINGS: 4 views were obtained through the cast that show reasonable reduction of the comminuted pro ximal tibia fracture. Detail is limited slightly by the cast. Major fragments are in good position. T here is nondisplaced fracture of the neck of the fibula head. IMPRESSION: Satisfactory reduction. No complicating process seen. There is air in the joint space on the lateral view consistent with open fracture and pneumarthrosis.
[2018-10-19 21:53] VITALS: BP 140/76; RESP 16
[2018-10-19 22:15] VITALS: TEMP 98.5
== END 2018-10-19 21:59 | disposition other institution (70) ==
LOC: EC 17:46
DX: S82.141B Displaced bicondylar fracture of right tibia, initial encounter for open fracture type I or II (principal); S82.831B Other fracture of upper and lower end of right fibula, initial encounter for open fracture type I or II; J44.9 Chronic obstructive pulmonary disease, unspecified; E78.5 Hyperlipidemia, unspecified; I25.2 Old myocardial infarction; M19.90 Unspecified osteoarthritis, unspecified site; G62.9 Polyneuropathy, unspecified; F17.200 Nicotine dependence, unspecified, uncomplicated; Z23 Encounter for immunization; Z79.82 Long term (current) use of aspirin; Z79.51 Long term (current) use of inhaled steroids; Z79.891 Long term (current) use of opiate analgesic; Z79.899 Other long term (current) drug therapy; V17.4XXA Pedal cycle driver injured in collision with fixed or stationary object in traffic accident, initial encounter
CPT/HCPCS: 36415; 80053; 82550; 83735; 85025; 85610; 73590; 71046; 90715; 99285; 27532; 99152; 99153; 96365; 96366; 96375 ×2; 96376; 90471; G0480; J0690; J2001; J3010; J1170; J2704; 80320

== ENCOUNTER 2018-12-13 10:36 | Emergency (ER) | payer OTHER ==
[2018-12-13] MEDS ORDERED: MORPHINE SULFATE 4 MG/ML SYRINGE IV STA ×2 (11:25→14:21)
[2018-12-13] MEDS ORDERED: VANCOMYCIN IV PER PHARMACY 1 EACH MISC MISCELLANE PRN (11:26)
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
[2018-12-13] MEDS ORDERED: VANCOMYCIN 1,500 MG in SODIUM CHLORIDE 0.9% 250 ML IVPB STA (11:49)
[2018-12-13 12:04] LABS: ALT 45 U/L (21-72); AST 76 U/L (17-59); African American GFR (CKD) >90 (>60 ml/min/1.73 sqM); Albumin 3.5 g/dL (3.5-5.0); Alkaline Phosphatase 99 U/L (38-126); Anion Gap 8 mmol/L; Blood Urea Nitrogen 10 mg/dL (9-20); Calcium 8.9 mg/dL (8.4-10.2); Carbon Dioxide 28 mmol/L (22-30); Chloride 102 mmol/L (98-107); Glucose 112 mg/dL (74-99); Potassium 3.7 mmol/L (3.5-5.1); Sodium 138 mmol/L (137-145); Total Bilirubin 0.8 mg/dL (0.2-1.3); Total Protein 7.5 g/dL (6.3-8.2)
[2018-12-13 12:11] LABS: HCT 28.1 % (39.0-53.0); HGB 9.2 gm/dL (13.0-17.5); MCH 30.2 pg (25.0-35.0); MCHC 32.7 g/dL (31.0-37.0); Mean Platelet Volume 6.9; Platelet Count 413 k/uL (150-450); RBC 3.04 m/uL (4.30-5.90); RDW 15.3 % (11.5-15.5); WBC 3.7 k/uL (3.8-10.6)
[2018-12-13 12:13] LABS: MCV 92.4 fL (80.0-100.0)
[2018-12-13 12:37] LABS: Band Neutrophils % 1 %; Eosinophils # (M) 0.15 k/uL (0-0.7); Lymphocytes # (M) 0.96 k/uL (1.0-4.8); Metamyelocytes # (M) 0.04 k/uL (0); Monocytes # (M) 0.52 k/uL (0-1.0); Nucleated Red Blood Cells 0 /100 WBC (0-0); Total Cells Counted 200
[2018-12-13 12:38] LABS: Neutrophils % (M) 56 %
--- NOTE | 2018-12-13 13:33 | XR ---
Right leg and right knee HISTORY: Postop infection, fall 2 views of the right leg, 3 views of the right knee submitted allograft correlation to prior right le g dated 10/19/2018 Comminuted intra-articular proximal tibial fracture and postprocedural changes are present status pos t open reduction and internal fixation. Depression of the tibial plateau is present laterally as on p rior. Proximal fibular fracture changes are again seen. Lucencies are present in the mid diaphysis of the right tibia likely due to postop hardware removal. Soft tissue swelling is present. Alignment ap pears stable. Bone mineralization is reduced. Inferior diaphyseal screw courses across the medial cor andres. IMPRESSION: Postop changes as described, soft tissue swelling.
[2018-12-13] MEDS ORDERED: SODIUM CHLORIDE 0.9% 1,000 ML IV STA (13:59)
[2018-12-13 15:41] VITALS: BP 112/69; PULSE 79; RESP 16; TEMP 98.3
[2018-12-13] MEDS ORDERED: VANCOMYCIN 1,500 MG in SODIUM CHLORIDE 0.9% 250 ML IVPB SCH (20:00)
== END 2018-12-13 15:40 | disposition short-term general hospital (02) ==
LOC: EC 10:36
DX: T81.41XA Infection following a procedure, superficial incisional surgical site, initial encounter (principal); I20.9 Angina pectoris, unspecified; J44.9 Chronic obstructive pulmonary disease, unspecified; E78.5 Hyperlipidemia, unspecified; I25.2 Old myocardial infarction; M19.90 Unspecified osteoarthritis, unspecified site; G89.29 Other chronic pain; G62.9 Polyneuropathy, unspecified; F41.9 Anxiety disorder, unspecified; F17.200 Nicotine dependence, unspecified, uncomplicated; Z79.51 Long term (current) use of inhaled steroids; Z79.82 Long term (current) use of aspirin; Z79.891 Long term (current) use of opiate analgesic; Z79.899 Other long term (current) drug therapy
CPT/HCPCS: 99285; 96365; 96367; 96368; 96375; 96376; 36415; 80053; 83605; 85025; 87070; 87205; 87077; 87186; 73590; 73562; J3370; J2270; J0690

== ENCOUNTER 2018-12-25 23:50 | Emergency (ER) | payer OTHER ==
[2018-12-25] MEDS ORDERED: MORPHINE SULFATE 4 MG/ML SYRINGE IM STA (23:52)
[2018-12-25] MEDS ORDERED: ACET/COD 300 MG/30 MG STARTER PACK 6 TAB BTL PO STA (23:52)
--- NOTE | 2018-12-25 23:54 | ED ---
General Adult HPI - General Stated complaint: Pain Management Time Seen by Provider: 12/25/18 23:52 - History of Present Illness Initial comments: Olayinka is a 58-year-old woman with extensive past medical history most significant for recent right BKA performed an outside facility. Patient was transferred from outside facility to a local longterm today. Due to some miscommunication between the discharging doctor in the admitting doctor at the longterm there was no orders for pain medications. Patient's pain has become uncontrolled and he was transferred to ER for pain control. Upon arrival patient's only complaint is pain in the stump. Patient has not had any of his postoperative pain medications. - Related Data Home Medications Medication Instructions Recorded Confirmed Aspirin EC [Ecotrin Low Dose] 81 mg PO DAILY 03/12/16 10/19/18 Gabapentin [Neurontin] 300 mg PO BID 03/12/16 10/19/18 Cholecalciferol [Vitamin D3 (25 5,000 unit PO DAILY 11/12/17 10/19/18 Mcg = 1000 Iu)] Budesonide [Pulmicort Flexhaler] 1 puff INHALATION RT-BID 06/17/18 10/19/18 traMADol HCL [Ultram] 50 mg PO BID 06/17/18 10/19/18 Albuterol Inhaler [Ventolin Hfa 2 puff INHALATION RT-QID PRN 10/08/18 10/19/18 Inhaler] Atorvastatin Calcium [Lipitor] 40 mg PO HS 10/08/18 10/19/18 Cyanocobalamin (Vitamin B-12) 1,000 mcg PO DAILY 10/08/18 10/19/18 [Vitamin B-12] Previous Rx's Medication Instructions Recorded Nitroglycerin Sl Tabs [Nitrostat] 0.4 mg SUBLINGUAL Q5M PRN #30 tab 02/04/16 Warfarin [Coumadin] 5 mg PO DAILY@1800 #30 tab 10/10/18 Allergies Allergy/AdvReac Type Severity Reaction Status Date / Time No Known Allergies Allergy Verified 12/25/18 23:55 Review of Systems ROS Statement: Those systems with pertinent positive or pertinent negative responses have been documented in the HPI. ROS Other: All systems not noted in ROS Statement are negative. Past Medical History Past Medical History: Chest Pain / Angina, COPD, Deep Vein Thrombosis (DVT), Hyperlipidemia, Myocardial Infarction ([place]), Osteoarthritis (OA), Prostate Disorder, Pulmonary Embolus (PE) Additional Past Medical History / Comment(s): COPD, alcoholism, previous history of a left lower extremity DVT and pulmonary embolism in January 2013, chronic back pain, history of right arm fractures, osteoarthritis, bilateral inguinal hernia, psoriasis, BPH, peripheral vascular disease, peripheral neuropathy, vertigo, insomnia Last Myocardial Infarction Date:: early History of Any Multi-Drug Resistant Organisms: MRSA Date of last positivie culture/infection: 12/13/18 MDRO Source:: Right Knee Past Surgical History: Orthopedic Surgery Additional Past Surgical History / Comment(s): orif lt hip plate/screws have since been removed. Past Anesthesia/Blood Transfusion Reactions: No Reported Reaction Past Psychological History: Anxiety, Depression Smoking Status: Current every day smoker Past Alcohol Use History: Daily, Occasional Past Drug Use History: None Reported - Past Family History Brother(s) Family Medical History: No Reported History Additional Family Medical History / Comment(s): He has 3 brothers with no major medical problems. Patient does not have any sisters. He has 4 children are apparently okay. Father Family Medical History: Myocardial Infarction ([place]) Additional Family Medical History / Comment(s): in his 60's [place] Mother Family Medical History: Myocardial Infarction ([place]) Additional Family Medical History / Comment(s): in her 60's [place] General Exam - General Exam Comments Initial Comments: Physical Exam GENERAL: Chronically ill-appearing, appears older than stated age HENT: Normocephalic, Atraumatic. EYES: PERRL, EOMI PULMONARY: Unlabored respirations CARDIOVASCULAR: There is a regular rate and rhythm without any murmurs gallops or rubs. ABDOMEN: Soft and nontender with normal bowel sounds. SKIN: Well-healing surgical incision on right stump : Deferred NEUROLOGIC: Patient is alert and oriented x3. Moving all extremities spontaneously MUSCULOSKELETAL: Right BKA PSYCHIATRIC: Appropriate Course Vital Signs 12/25/18 23:52 Temperature 99.4 F Pulse Rate 76 Respiratory 18 Rate Blood Pressure 128/87 O2 Sat by Pulse 97 Oximetry Medical Decision Making - Medical Decision Making The patient was seen and evaluated history is obtained from the patient and EMS Olayinka is a 58-year-old male well known to our ER who recently underwent surgical procedure he was discharged to longterm with no pain medications he is here for pain management. Patient will be given morphine and a started pack of Tylenol 3. Physician longterm can manage pain tomorrow. Disposition Clinical Impression: Post-operative pain Disposition: HOME SELF-CARE Condition: Stable Is patient prescribed a controlled substance at d/c from ED?: No Referrals: None,Stated [Primary Care Provider] - 1-2 days
[2018-12-25 23:56] VITALS: BP 128/87; PULSE 76; RESP 18; TEMP 99.4
== END 2018-12-26 00:09 | disposition home or self-care (01) ==
LOC: EC 23:50
DX: G89.18 Other acute postprocedural pain (principal); J44.9 Chronic obstructive pulmonary disease, unspecified; E78.5 Hyperlipidemia, unspecified; I25.2 Old myocardial infarction; M19.90 Unspecified osteoarthritis, unspecified site; F17.200 Nicotine dependence, unspecified, uncomplicated; Z86.14 Personal history of Methicillin resistant Staphylococcus aureus infection; Z89.511 Acquired absence of right leg below knee; Z79.82 Long term (current) use of aspirin; Z79.51 Long term (current) use of inhaled steroids; Z79.891 Long term (current) use of opiate analgesic; Z79.899 Other long term (current) drug therapy
CPT/HCPCS: 99283; 96372; J2270

== ENCOUNTER 2019-12-17 20:42 | Observation (INO) | payer OTHER ==
[2019-12-17] MEDS ORDERED: ORPHENADRINE 30 MG/ML 2 ML VIAL IVP STA (21:28)
[2019-12-17] MEDS ORDERED: SODIUM CHLORIDE 0.9% 1,000 ML IV STA (21:28)
--- NOTE | 2019-12-17 21:33 | ED ---
General Adult HPI - General Chief complaint: Extremity Problem,Nontraumatic Stated complaint: L Leg Pain, Time Seen by Provider: 12/17/19 21:07 Source: patient, RN notes reviewed Mode of arrival: wheelchair Limitations: physical limitation - History of Present Illness Initial comments: Patient is a pleasant 59-year-old male presenting to the emergency Department with complaints of left anterior thigh pain. Patient states he has previous amputation of his right leg and has been putting more pressure lately on his left leg anteriorly. Patient has discomfort there and having muscle spasms. No posterior leg or calf or knee pain. Patient also complains of some right elbow discomfort similar to his previous gout. Patient does have history of gout and chronic changes in his joints secondary to this. Patient also complains of feeling shortness of breath more so recently related to his history of COPD. Patient still smokes. Patient occasionally has chest discomfort, last was a couple of days ago, none today. Patient is on Coumadin. - Related Data Home Medications Medication Instructions Recorded Confirmed Aspirin EC [Ecotrin Low Dose] 81 mg PO DAILY 03/12/16 10/19/18 Gabapentin [Neurontin] 300 mg PO BID 03/12/16 10/19/18 Cholecalciferol [Vitamin D3 (25 5,000 unit PO DAILY 11/12/17 10/19/18 Mcg = 1000 Iu)] Budesonide [Pulmicort Flexhaler] 1 puff INHALATION RT-BID 06/17/18 10/19/18 traMADol HCL [Ultram] 50 mg PO BID 06/17/18 10/19/18 Albuterol Inhaler (Mhu) [Ventolin 2 puff INHALATION RT-QID PRN 10/08/18 10/19/18 Hfa Inhaler (Mhu)] Atorvastatin Calcium [Lipitor] 40 mg PO HS 10/08/18 10/19/18 Cyanocobalamin (Vitamin B-12) 1,000 mcg PO DAILY 10/08/18 10/19/18 [Vitamin B-12] Previous Rx's Medication Instructions Recorded Nitroglycerin Sl Tabs [Nitrostat] 0.4 mg SUBLINGUAL Q5M PRN #30 tab 02/04/16 Warfarin [Coumadin] 5 mg PO DAILY@1800 #30 tab 10/10/18 Allergies Allergy/AdvReac Type Severity Reaction Status Date / Time No Known Allergies Allergy Verified 12/17/19 21:02 Review of Systems ROS Statement: Those systems with pertinent positive or pertinent negative responses have been documented in the HPI. ROS Other: All systems not noted in ROS Statement are negative. Constitutional: Denies: fever Eyes: Denies: eye pain ENT: Denies: ear pain Respiratory: Reports: as per HPI, dyspnea. Denies: cough Cardiovascular: Reports: as per HPI Endocrine: Denies: fatigue Gastrointestinal: Denies: abdominal pain Genitourinary: Denies: dysuria Musculoskeletal: Denies: back pain Skin: Denies: as per HPI Neurological: Denies: weakness Past Medical History Past Medical History: Chest Pain / Angina, COPD, Deep Vein Thrombosis (DVT), Hyperlipidemia, Myocardial Infarction ([place]), Osteoarthritis (OA), Prostate Disor chester, Pulmonary Embolus (PE) Additional Past Medical History / Comment(s): COPD, alcoholism, previous history of a left lower extremity DVT and pulmonary embolism in January 2013, chronic back pain, history of right arm fractures, osteoarthritis, bilateral inguinal hernia, psoriasis, BPH, peripheral vascular disease, peripheral neuropathy, vertigo, insomnia Last Myocardial Infarction Date:: early History of Any Multi-Drug Resistant Organisms: MRSA Date of last positivie culture/infection: 12/13/18 MDRO Source:: Right Knee Past Surgical History: Orthopedic Surgery Additional Past Surgical History / Comment(s): orif lt hip plate/screws have since been removed. Past Anesthesia/Blood Transfusion Reactions: No Reported Reaction Past Psychological History: Anxiety, Depression Smoking Status: Current every day smoker Past Alcohol Use History: Abuse, Daily Past Drug Use History: None Reported - Past Family History Brother(s) Family Medical History: No Reported History Additional Family Medical History / Comment(s): He has 3 brothers with no major medical problems. Patient does not have any sisters. He has 4 children are apparently okay. Father Family Medical History: Myocardial Infarction ([place]) Additional Family Medical History / Comment(s): in his 60's [place] Mother Family Medical History: Myocardial Infarction ([place]) Additional Family Medical History / Comment(s): in her 60's [place] General Exam Limitations: physical limitation General appearance: alert, in no apparent distress Head exam: Present: normocephalic Eye exam: Present: normal appearance Neck exam: Present: normal inspection Respiratory exam: Present: decreased breath sounds Cardiovascular Exam: Present: regular rate, normal rhythm GI/Abdominal exam: Present: soft. Absent: tenderness Extremities exam: Present: tenderness (Mild tenderness left quadricep region.), other (Right AKA. Right elbow with mild warmth, erythema and tenderness consistent with patient's history of gout. Patient does have typhus changes of the skin over the electric process as well as the MCP over the fourth and fifth digit.). Absent: calf tenderness Neurological exam: Present: alert. Absent: motor sensory deficit Psychiatric exam: Present: normal affect, normal mood Skin exam: Present: other (Tobacco stained fingers) Course Vital Signs 12/17/19 20:58 Temperature 98.9 F Pulse Rate 89 Respiratory 16 Rate Blood Pressure 134/73 O2 Sat by Pulse 96 Oximetry EKG Findings - EKG Comments: EKG Findings:: Normal sinus rhythm 89. MO 138. QRS 78. QT 366. QTc 445. Normal axis. Normal QRS. No acute ST change. Medical Decision Making - Medical Decision Making Patient reevaluated and resting comfortably in bed. Leg discomfort has resolved with Norflex. Patient still complains of elbow discomfort, unchanged. Still feeling a little bit short of breath. Secondary to subtherapeutic INR ultrasound the leg and d-dimer will be added. Case was discussed with Dr. Venegas, who will admit covering for hospital call. - Lab Data Result diagrams: 12/17/19 21:46 12/17/19 21:46 Lab Results 12/17/19 12/17/19 12/17/19 Range/Units 21:46 21:46 21:46 WBC 5.8 (3.8-10.6) k/uL RBC 4.21 L (4.30-5.90) m/uL Hgb 12.6 L (13.0-17.5) gm/dL Hct 38.5 L (39.0-53.0) % MCV 91.4 (80.0-100.0) fL MCH 29.8 (25.0-35.0) pg MCHC 32.6 (31.0-37.0) g/dL RDW 14.5 (11.5-15.5) % Plt Count 262 (150-450) k/uL Neutrophils % 33 % Lymphocytes % 51 % Monocytes % 10 % Eosinophils % 3 % Basophils % 2 % Neutrophils # 1.9 (1.3-7.7) k/uL Lymphocytes # 2.9 (1.0-4.8) k/uL Monocytes # 0.6 (0-1.0) k/uL Eosinophils # 0.2 (0-0.7) k/uL Basophils # 0.1 (0-0.2) k/uL PT 10.1 (9.0-12.0) sec INR 1.0 (<1.2) APTT 30.5 H (22.0-30.0) sec Sodium 137 (137-145) mmol/L Potassium 3.9 (3.5-5.1) mmol/L Chloride 106 (98-107) mmol/L Carbon Dioxide 18 L (22-30) mmol/L Anion Gap 13 mmol/L BUN 10 (9-20) mg/dL Creatinine 1.02 (0.66-1.25) mg/dL Est GFR (CKD-EPI)AfAm >90 (>60 ml/min/1.73 sqM) Est GFR (CKD-EPI)NonAf 81 (>60 ml/min/1.73 sqM) Glucose 116 H (74-99) mg/dL Uric Acid 6.0 (3.5-8.5) mg/dL Calcium 9.2 (8.4-10.2) mg/dL Phosphorus 3.6 (2.5-4.5) mg/dL Magnesium 2.3 (1.6-2.3) mg/dL Total Bilirubin 0.4 (0.2-1.3) mg/dL AST 16 L (17-59) U/L ALT 7 (4-49) U/L Alkaline Phosphatase 86 (38-126) U/L Troponin I (0.000-0.034) ng/mL Total Protein 7.5 (6.3-8.2) g/dL Albumin 4.2 (3.5-5.0) g/dL Urine Color Urine Appearance (Clear) Urine pH (5.0-8.0) Ur Specific [place] (1.001-1.035) Urine Protein (Negative) Urine Glucose (UA) (Negative) Urine Ketones (Negative) Urine Blood (Negative) Urine Nitrite (Negative) Urine Bilirubin (Negative) Urine Urobilinogen (<2.0) mg/dL Ur Leukocyte Esterase (Negative) Urine RBC (0-5) /hpf Urine Mucus (None) /hpf Serum Alcohol 185 mg/dL 12/17/19 12/17/19 Range/Units 21:46 21:46 WBC (3.8-10.6) k/uL RBC (4.30-5.90) m/uL Hgb (13.0-17.5) gm/dL Hct (39.0-53.0) % MCV (80.0-100.0) fL MCH (25.0-35.0) pg MCHC (31.0-37.0) g/dL RDW (11.5-15.5) % Plt Count (150-450) k/uL Neutrophils % % Lymphocytes % % Monocytes % % Eosinophils % % Basophils % % Neutrophils # (1.3-7.7) k/uL Lymphocytes # (1.0-4.8) k/uL Monocytes # (0-1.0) k/uL Eosinophils # (0-0.7) k/uL Basophils # (0-0.2) k/uL PT (9.0-12.0) sec INR (<1.2) APTT (22.0-30.0) sec Sodium (137-145) mmol/L Potassium (3.5-5.1) mmol/L Chloride (98-107) mmol/L Carbon Dioxide (22-30) mmol/L Anion Gap mmol/L BUN (9-20) mg/dL Creatinine (0.66-1.25) mg/dL Est GFR (CKD-EPI)AfAm (>60 ml/min/1.73 sqM) Est GFR (CKD-EPI)NonAf (>60 ml/min/1.73 sqM) Glucose (74-99) mg/dL Uric Acid (3.5-8.5) mg/dL Calcium (8.4-10.2) mg/dL Phosphorus (2.5-4.5) mg/dL Magnesium (1.6-2.3) mg/dL Total Bilirubin (0.2-1.3) mg/dL AST (17-59) U/L ALT (4-49) U/L Alkaline Phosphatase (38-126) U/L Troponin I <0.012 (0.000-0.034) ng/mL Total Protein (6.3-8.2) g/dL Albumin (3.5-5.0) g/dL Urine Color Colorless Urine Appearance Clear (Clear) Urine pH 6.0 (5.0-8.0) Ur Specific [place] 1.003 (1.001-1.035) Urine Protein Negative (Negative) Urine Glucose (UA) Negative (Negative) Urine Ketones Negative (Negative) Urine Blood Small H (Negative) Urine Nitrite Negative (Negative) Urine Bilirubin Negative (Negative) Urine Urobilinogen <2.0 (<2.0) mg/dL Ur Leukocyte Esterase Negative (Negative) Urine RBC 2 (0-5) /hpf Urine Mucus Rare H (None) /hpf Serum Alcohol mg/dL Disposition Clinical Impression: COPD exacerbation, Chest pain, Gouty arthritis Disposition: ADMITTED IP TO THIS HOSP Is patient prescribed a controlled substance at d/c from ED?: No Referrals: None,Stated [Primary Care Provider] - 1-2 days Decision Time: 22:53
[2019-12-17 22:07] LABS: Basophils # (A) 0.1 k/uL (0-0.2); Basophils % (A) 2 %; Eosinophils # (A) 0.2 k/uL (0-0.7); Eosinophils % (A) 3 %; HCT 38.5 % (39.0-53.0); HGB 12.6 gm/dL (13.0-17.5); Lymphocytes # (A) 2.9 k/uL (1.0-4.8); Lymphocytes % (A) 51 %; MCH 29.8 pg (25.0-35.0); MCHC 32.6 g/dL (31.0-37.0); MCV 91.4 fL (80.0-100.0); Mean Platelet Volume 6.8; Monocytes # (A) 0.6 k/uL (0-1.0); Monocytes % (A) 10 %; Neutrophils # (A) 1.9 k/uL (1.3-7.7); Neutrophils % (A) 33 %; Platelet Count 262 k/uL (150-450); RBC 4.21 m/uL (4.30-5.90); RDW 14.5 % (11.5-15.5); WBC 5.8 k/uL (3.8-10.6)
--- NOTE | 2019-12-17 22:11 | XR ---
EXAMINATION TYPE: XR chest 2V DATE OF EXAM: 12/17/2019 COMPARISON: 10/19/2018 HISTORY: Fall. Pain. TECHNIQUE: 2 views FINDINGS: There is mild coarsening of interstitial markings. There is no heart failure. There is no p ulmonary consolidation. There is no pleural effusion. Heart size is normal. Bony thorax is intact. Th ere is slight increased density above the right pulmonary hilum on the frontal view. IMPRESSION: Mild interstitial fibrosis. There appears to be a new infiltrate above the right pulmonar y hilum compared to old exam. Follow-up recommended..
[2019-12-17 22:21] LABS: ALT 7 U/L (4-49); AST 16 U/L (17-59); African American GFR (CKD) >90 (>60 ml/min/1.73 sqM); Albumin 4.2 g/dL (3.5-5.0); Alkaline Phosphatase 86 U/L (38-126); Anion Gap 13 mmol/L; Blood Urea Nitrogen 10 mg/dL (9-20); Calcium 9.2 mg/dL (8.4-10.2); Carbon Dioxide 18 mmol/L (22-30); Chloride 106 mmol/L (98-107); Glucose 116 mg/dL (74-99); Magnesium 2.3 mg/dL (1.6-2.3); Non-African American GFR(CKD) 81 (>60 ml/min/1.73 sqM); Phosphorus 3.6 mg/dL (2.5-4.5); Potassium 3.9 mmol/L (3.5-5.1); Sodium 137 mmol/L (137-145); Total Bilirubin 0.4 mg/dL (0.2-1.3); Total Protein 7.5 g/dL (6.3-8.2)
[2019-12-17 22:22] LABS: Appearance,Urine Clear (Clear); Bilirubin,Urine Negative (Negative); Blood,Urine Small (Negative); Color,Urine Colorless; Glucose,Urine (UA) Negative (Negative); Ketones,Urine Negative (Negative); Leukocyte Esterase,Urine Negative (Negative); Mucus,Urine Rare /hpf; Nitrite,Urine Negative (Negative); Protein,Urine Negative (Negative); RBC,Urine 2 /hpf (0-5); Specific Gravity,Urine 1.003 (1.001-1.035); Urobilinogen,Urine <2.0 mg/dL (<2.0)
[2019-12-17 22:24] LABS: Alcohol 185 mg/dL
[2019-12-17 22:26] LABS: Partial Thromboplastin Time 30.5 sec (22.0-30.0); Prothrombin Time 10.1 sec (9.0-12.0)
[2019-12-17] MEDS ORDERED: LORazepam 2 MG/ML INJ IV PRN ×3 (22:54)
[2019-12-17] MEDS ORDERED: NITROGLYCERIN SL TABS 0.4 MG TAB SUBLINGUAL PRN (22:55)
[2019-12-17] MEDS ORDERED: ASPIRIN 81 MG PO STA (22:55)
[2019-12-17] MEDS ORDERED: methylPREDNISolone SOD SUCCI 125 MG/2 ML VIAL IV STA (22:55)
[2019-12-17] MEDS ORDERED: IPRATROPIUM-ALBUTEROL 3 ML NEB INHALATION PRN (22:55)
--- NOTE | 2019-12-18 00:14 | US ---
EXAMINATION TYPE: US venous doppler duplex LE LT DATE OF EXAM: 12/17/2019 11:54 PM COMPARISON: US CLINICAL HISTORY: pain. Pain left lower extremity x 1.5 weeks. Hx DVT, PE. On warfarin, but patient s tates he does not take medication regularly. SIDE PERFORMED: Left TECHNIQUE: The lower extremity deep venous system is examined utilizing real time linear array sonog jazmin with graded compression, doppler sonography and color-flow sonography. VESSELS IMAGED: External Iliac Vein (EIV) Common Femoral Vein Deep Femoral Vein Greater Saphenous Vein * Femoral Vein Popliteal Vein Small Saphenous Vein * Proximal Calf Veins (* superficial vessels) Left Leg: There appear to be internal echoes within the right proximal femoral vein down through the popliteal vein. Color flow is seen, but vein does not compress completely. There appears to be non-o cclusive thrombus. IMPRESSION: There is evidence of some chronic deep vein thrombosis in the left leg. This is seen in the femoral vein and popliteal vein.
[2019-12-18] MEDS: methylPREDNISolone SOD SUCCI 125 MG/2 ML VIAL IV SCH ×2 (02:12→06:48)
[2019-12-18 04:03] LABS: Cholesterol 272 mg/dL (<200); HDL Cholesterol 31 mg/dL (40-60); LDL Cholesterol,Calculated 193 mg/dL (0-99); Triglycerides 241 mg/dL (<150)
[2019-12-18 06:24] LABS: Glucose,Whole Blood 210 mg/dL (75-99)
[2019-12-18] MEDS: THIAMINE 100 MG TAB PO SCH ×2 (06:48→17:39)
[2019-12-18] MEDS: INSULIN ASPART (NovoLOG) 100 UNIT/ML VIAL SQ SCH ×4 (06:48→22:01)
[2019-12-18] MEDS: IPRATROPIUM-ALBUTEROL 3 ML NEB INHALATION SCH ×4 (07:30→19:22)
[2019-12-18] MEDS ORDERED: ASPIRIN 325 MG TAB PO SCH (09:00)
[2019-12-18] MEDS ORDERED: ASPIRIN 81 MG PO SCH (09:01)
[2019-12-18] MEDS ORDERED: NITROGLYCERIN SL TABS 0.4 MG TAB SUBLINGUAL PRN (09:45)
[2019-12-18] MEDS ORDERED: BUDESONIDE 0.5 MG/2 ML NEBU INHALATION STA (09:47)
--- NOTE | 2019-12-18 10:26 | P.HPIM ---
History of Present Illness 59-year-old male came in with complaints of left thigh pain apparently but he was comparing of right leg pain radiating an amputation above the knee. Patient was comparing of pain in the right elbow and he believes it mechanical development engineer. Patient denied any shortness of breath to me when I asked him about shortness of breath he did say he probably had shortness of breath yesterday he was also complaining of chest pain mostly in the retrosternal area moderate severity nonradiating although his chest pain history keeps on changing he denied any clear history of diaphoresis denied any nausea vomiting. Patient had a troponin which was negat tapan and an EKG as well cardiology is of admitting the patient patient is found to have a DVT, nonocclusive and chronic in the left leg involving femoral and popliteal veins. Patient was on Coumadin appears to be noncompliant with Coumadin. Patient admits drinking alcohol but only twice a week does smoke a pack of cigarettes per day. Patient was basically admitted for chest pain and COPD exacerbation although patient is saturating well on room air because of which I'm discontinued and IV steroids patient was switched to oral steroids. Patient apparently was complaining of suicidal ideations cc patient is depressed but he doesn't have any suicidal ideations when I asked him about this. Review of Systems REVIEW OF SYSTEMS: CONSTITUTIONAL: No fever, no malaise, no fatigue. HEENT: No recent visual problems or hearing problems. Denied any sore throat. CARDIOVASCULAR: No orthopnea, PND, no palpitations, no syncope. PULMONARY: no cough, no hemoptysis. GASTROINTESTINAL: No diarrhea, no nausea, no vomiting, no abdominal pain. NEUROLOGICAL: No headaches, no weakness, no numbness. HEMATOLOGICAL: Denies any bleeding or petechiae. GENITOURINARY: Denies any burning micturition, frequency, or urgency. MUSCULOSKELETAL/RHEUMATOLOGICAL: As mentioned above ENDOCRINE: Denies any polyuria or polydipsia. The rest of the 14-point review of systems is negative. Past Medical History Past Medical History: Chest Pain / Angina, COPD, Deep Vein Thrombosis (DVT), Hyperlipidemia, Myocardial Infarction (OK), Osteoarthritis (OA), Prostate Disorder, Pulmonary Embolus (PE) Additional Past Medical History / Comment(s): COPD, alcoholism, previous history of a left lower extremity DVT and pulmonary embolism in January 2013, chronic back pain, history of right arm fractures, osteoarthritis, bilateral inguinal hernia, psoriasis, BPH, peripheral vascular disease, peripheral neuropathy, vertigo, insomnia Last Myocardial Infarction Date:: early History of Any Multi-Drug Resistant Organisms: MRSA Date of last positivie culture/infection: 12/13/18 MDRO Source:: Right Knee Past Surgical History: Orthopedic Surgery Additional Past Surgical History / Comment(s): orif lt hip plate/screws have since been removed. Past Anesthesia/Blood Transfusion Reactions: No Reported Reaction Past Psychological History: Anxiety, Depression Additional Psychological History / Comment(s): He has a walker but does not use it. He cannot drive, no license. He gets to [facility] by bus or walking. Smoking Status: Current every day smoker Past Alcohol Use History: Abuse, Daily Additional Past Alcohol Use History / Comment(s): Pt started smoking at age 10 smokes 1 ppd. Patient denies any marijuana or street drug use. Patient states he is a recovering alcoholic, drinking 2-3 drinks a couple drinks per week Past Drug Use History: None Reported - Past Family History Brother(s) Family Medical History: No Reported History Additional Family Medical History / Comment(s): He has 3 brothers with no major medical problems. Patient does not have any sisters. He has 4 children are apparently okay. Father Family Medical History: Myocardial Infarction (OK) Additional Family Medical History / Comment(s): in his 60's [place] Mother Family Medical History: Myocardial Infarction ([place]) Additional Family Medical History / Comment(s): in her 60's [place] Medications and Allergies Home Medications Medication Instructions Recorded Confirmed Type traMADol HCL [Ultram] 50 mg PO BID 06/17/18 12/17/19 History Atorvastatin Calcium [Lipitor] 40 mg PO DAILY 10/08/18 12/17/19 History Docusate [Colace] 100 mg PO BID 12/17/19 12/17/19 History Gabapentin 600 mg PO DAILY 12/17/19 12/17/19 History Nitroglycerin Sl Tabs [Nitrostat] 0.4 mg SL Q5M PRN 12/17/19 12/17/19 History Warfarin [Coumadin] 5 mg PO DAILY 12/17/19 12/17/19 History Allergies Allergy/AdvReac Type Severity Reaction Status Date / Time No Known Allergies Allergy Verified 12/17/19 23:25 Physical Exam Vitals: Vital Signs Temp Pulse Pulse Resp BP BP Pulse Ox 12/18/19 08:38 98.2 F 68 14 118/61 94 L 12/18/19 04:00 98.7 F 77 19 98/57 93 L 12/18/19 00:44 98.7 F 84 18 103/64 97 12/18/19 00:10 98.7 F 77 17 95/54 93 L 12/17/19 23:39 78 18 110/58 95 12/17/19 20:58 98.9 F 89 16 134/73 96 Intake and Output 12/17/19 12/18/19 12/18/19 22:59 06:59 14:59 Intake Total 200 Balance 200 Intake: Oral 200 Other: Voiding Method Urinal # Voids 0 Weight 68.039 kg 79 kg PHYSICAL EXAMINATION: GENERAL: The patient is alert and oriented x3, not in any acute distress. Well developed, well nourished. HEENT: Pupils are round and equally reacting to light. EOMI. No scleral icterus. No conjunctival pallor. Normocephalic, atraumatic. No pharyngeal erythema. No thyromegaly. CARDIOVASCULAR: S1 and S2 present. No murmurs, rubs, or gallops. PULMONARY: Chest is clear to auscultation, no wheezing or crackles. ABDOMEN: Soft, nontender, nondistended, normoactive bowel sounds. No palpable organomegaly. MUSCULOSKELETAL: Patient does have some rigidity in the right elbow area in the right arm there is no significant swelling in the right EXTREMITIES: No cyanosis, clubbing, or pedal edema. NEUROLOGICAL: Gross neurological examination did not reveal any focal deficits. SKIN: No rashes. Results CBC & Chem 7: 12/17/19 21:46 12/17/19 21:46 Labs: Abnormal Lab Results - Last 24 Hours (Table) 12/17/19 12/17/19 12/17/19 Range/Units 21:46 21:46 21:46 RBC 4.21 L (4.30-5.90) m/uL Hgb 12.6 L (13.0-17.5) gm/dL Hct 38.5 L (39.0-53.0) % APTT 30.5 H (22.0-30.0) sec Carbon Dioxide 18 L (22-30) mmol/L Glucose 116 H (74-99) mg/dL POC Glucose (mg/dL) (75-99) mg/dL AST 16 L (17-59) U/L Triglycerides (<150) mg/dL Cholesterol (<200) mg/dL LDL Cholesterol, Calc (0-99) mg/dL HDL Cholesterol (40-60) mg/dL Urine Blood (Negative) Urine Mucus (None) /hpf 12/17/19 12/18/19 12/18/19 Range/Units 21:46 03:07 06:22 RBC (4.30-5.90) m/uL Hgb (13.0-17.5) gm/dL Hct (39.0-53.0) % APTT (22.0-30.0) sec Carbon Dioxide (22-30) mmol/L Glucose (74-99) mg/dL POC Glucose (mg/dL) 210 H (75-99) mg/dL AST (17-59) U/L Triglycerides 241 H (<150) mg/dL Cholesterol 272 H (<200) mg/dL LDL Cholesterol, Calc 193 H (0-99) mg/dL HDL Cholesterol 31 L (40-60) mg/dL Urine Blood Small H (Negative) Urine Mucus Rare H (None) /hpf Thrombosis Risk Factor Assmnt - Choose All That Apply Any of the Below Risk Factors Present?: Yes Each Factor Represents 1 point: Abnormal pulmonary function (COPD), Acute OK, Ag e 41-60 years Other Risk Factors: Yes Each Risk Factor Represents 3 Points: History of DVT/PE Other congenital or acquired thrombophilia - If yes, enter type in comment: No Thrombosis Risk Factor Assessment Total Risk Factor Score: 6 Thrombosis Risk Factor Assessment Level: High Risk Assessment and Plan Plan: -Chest pain: We will rule out acute syndromes, cardiology will evaluate the patient. Troponins so far are negative please acute cardiology recommendations further details --COPD with mild acute exacerbation patient will be switched to oral steroids continue with inhalational treatments. I do not believe patient will require antibiotics -Chronic DVT in the left leg A patient appears to be noncompliant with his medications patient will continued on Coumadin with repeat INR tomorrow and patient will be started on Lovenox for bridging. -Anion gap metabolic acidosis: A lot and lactic acidosis is probably separate alcoholism -Alcohol abuse: Counseling was provided patient is on Ativan C review protocol -Right elbow swelling not consistent with acute gouty arthritis or gouty attack x-ray will be obtained. -Acute renal failure: Prerenal azotemia mild the patient was started on IV fluids -Hyperlipidemia -Hypertension -Depression denied any suicidal ideations to me for now patient has a sitter because of his suicidal complaints yesterday and a psychiatric will evaluate the patient -Elevated blood sugars will obtain hemoglobin A1c and patient will be on the sliding scale insulin patient blood sugars are probably elevated because of the systemic steroids -Benign prostatic hypertrophy -History of DVT and PE in the past -Coronary artery disease patient had a normal ejection fraction the past
--- NOTE | 2019-12-18 10:38 | P.CNOR ---
History of Present Illness - [facility] Consult date: 12/18/19 Consult reason: joint pain History of present illness: Patient is a 59-year-old male who was admitted to [facility] yesterday with multiple medical comorbidities. He's being followed by a few different specialties at this time, however orthopedic team was consulted due to right elbow pain. Patient was examined today at bedside, he is resting comfortably, he states that the pain in the elbow began about 3 days ago. He notes that it was very swollen throughout the elbow and forearm, has subsided. Patient does have a history of gout that is affected his foot before, he denies ever having in his elbow. Patient is a history of amputation involving the right lower extremity, he ut ilizes both a wheelchair and a walker and utilizes his upper body quite a bit. Patient denies any previous surgery involving the right upper extremity. Patient denies any fevers or chills at this time. Patient denies any recent trauma the right elbow. Review of Systems Constitutional: Reports as per [facility] Past Medical History Past Medical History: Chest Pain / Angina, COPD, Deep Vein Thrombosis (DVT), Hyperlipidemia, Myocardial Infarction (SD), Osteoarthritis (OA), Prostate Disorder, Pulmonary Embolus (PE) Additional Past Medical History / Comment(s): COPD, alcoholism, previous history of a left lower extremity DVT and pulmonary embolism in January 2013, chronic back pain, history of right arm fractures, osteoarthritis, bilateral inguinal hernia, psoriasis, BPH, peripheral vascular disease, peripheral neuropathy, vertigo, insomnia Last Myocardial Infarction Date:: early History of Any Multi-Drug Resistant Organisms: MRSA Year Discovered:: 12/13/18 MDRO Source:: Right Knee Past Surgical History: Orthopedic Surgery Additional Past Surgical History / Comment(s): orif lt hip plate/screws have since been removed. Past Anesthesia/Blood Transfusion Reactions: No Reported Reaction Past Psychological History: Anxiety, Depression Additional Psychological History / Comment(s): He has a walker but does not use it. He cannot drive, no license. He gets to [email or web address] by bus or walking. Smoking Status: Current every day smoker Past Alcohol Use History: Abuse, Daily Additional Past Alcohol Use History / Comment(s): Pt started smoking at age 10 smokes 1 ppd. Patient denies any marijuana or street drug use. Patient states he is a recovering alcoholic, drinking 2-3 drinks a couple drinks per week Past Drug Use History: None Reported - Past Family History Brother(s) Family Medical History: No Reported History Additional Family Medical History / Comment(s): He has 3 brothers with no major medical problems. Patient does not have any sisters. He has 4 children are apparently okay. Father Family Medical History: Myocardial Infarction (SD) Additional Family Medical History / Comment(s): in his 60's [place] Mother Family Medical History: Myocardial Infarction (SD) Additional Family Medical History / Comment(s): in her 60's [place] Medications and Allergies Home Medications Medication Instructions Recorded Confirmed Type traMADol HCL [Ultram] 50 mg PO BID 06/17/18 12/17/19 History Atorvastatin Calcium [Lipitor] 40 mg PO DAILY 10/08/18 12/17/19 History Docusate [Colace] 100 mg PO BID 12/17/19 12/17/19 History Gabapentin 600 mg PO DAILY 12/17/19 12/17/19 History Nitroglycerin Sl Tabs [Nitrostat] 0.4 mg SL Q5M PRN 12/17/19 12/17/19 History Warfarin [Coumadin] 5 mg PO DAILY 12/17/19 12/17/19 History Allergies Allergy/AdvReac Type Severity Reaction Status Date / Time No Known Allergies Allergy Verified 12/17/19 23:25 Physical Examination Right upper extremity: No open lesions or sores are visualized, there is no significant erythema noted no significant swelling present around the olecranon bursa or elbow at this time Range of motion of the elbow, he lacks about 15 of full extension, he does flex past 90 with minimal difficulty. Rotation of the forearm does reproduce slight discomfort in the elbow Palpation of the elbow reproduces some generalized tenderness, no tenderness with palpation of the upper arm and shoulder along with lower arm and hand and wrist His sensory exam to light touch is intact throughout the extremity, radial pulses 2+ Results - Labs Labs: Abnormal Lab Results - Last 24 Hours (Table) 12/17/19 12/17/19 12/17/19 Range/Units 21:46 21:46 21:46 RBC 4.21 L (4.30-5.90) m/uL Hgb 12.6 L (13.0-17.5) gm/dL Hct 38.5 L (39.0-53.0) % APTT 30.5 H (22.0-30.0) sec Carbon Dioxide 18 L (22-30) mmol/L Glucose 116 H (74-99) mg/dL POC Glucose (mg/dL) (75-99) mg/dL AST 16 L (17-59) U/L Triglycerides (<150) mg/dL Cholesterol (<200) mg/dL LDL Cholesterol, Calc (0-99) mg/dL HDL Cholesterol (40-60) mg/dL Urine Blood (Negative) Urine Mucus (None) /hpf 12/17/19 12/18/19 12/18/19 Range/Units 21:46 03:07 06:22 RBC (4.30-5.90) m/uL Hgb (13.0-17.5) gm/dL Hct (39.0-53.0) % APTT (22.0-30.0) sec Carbon Dioxide (22-30) mmol/L Glucose (74-99) mg/dL POC Glucose (mg/dL) 210 H (75-99) mg/dL AST (17-59) U/L Triglycerides 241 H (<150) mg/dL Cholesterol 272 H (<200) mg/dL LDL Cholesterol, Calc 193 H (0-99) mg/dL HDL Cholesterol 31 L (40-60) mg/dL Urine Blood Small H (Negative) Urine Mucus Rare H (None) /hpf H & H 12/17/19 Range/Units 21:46 Hgb 12.6 L (13.0-17.5) gm/dL Hct 38.5 L (39.0-53.0) % Coagulation 12/17/19 Range/Units 21:46 INR 1.0 (<1.2) Result Diagrams: 12/17/19 21:46 12/17/19 21:46 Assessment and Plan Assessment: Right elbow pain Possible right elbow osteoarthritis vs gouty arthritis Multiple medical comorbidities Plan: I was able to discuss the case, including the physical exam findings and imaging studies my attending Dr. Clarke. No orthopedic surgical intervention recommended at this time. No evidence of standard or septic olecranon bursitis. Internal medicine has ordered x-rays of the elbow, we will review these once available Recommend [id number] Tylenol or NSAIDs, along with ice Further recommendations to follow Time with Patient: Less than 30
[2019-12-18] MEDS: SODIUM CHLORIDE 0.9% 1,000 ML IV SCH ×2 (10:58→20:36)
[2019-12-18] MEDS: ENOXAPARIN 80 MG/0.8 ML SYRINGE SQ SCH ×2 (10:58→20:36)
[2019-12-18] MEDS: MULTIVITAMINS, THERA 1 EACH TAB PO SCH (10:58)
[2019-12-18] MEDS: NICOTINE 14MG/24HR PATCH TRANSDERM SCH (11:20)
--- NOTE | 2019-12-18 11:36 | P.CRDCN ---
History of Present Illness Consult date: 12/18/19 Consult reason: chest pain Chief complaint: Left leg pain and numbness, History of present illness: This is a 59-year-old gentleman with documented history of nicotine dependence, EtOH abuse, history of PE and DVT, not taking Coumadin reliably, he states that he's not taking any of his medications as per schedule. History also of COPD, hyperlipidemia, depression and suicidal attempts, history of right [id number]-[id number] amputation. He presented to the hospital on this admission with symptoms of left leg discomfort and numbness, patient also states that he was getting intermittent sharp chest pains off and on. Cardiology request was for the chest pain. EKG on presentation here showed normal sinus rhythm with no acute changes. Blood pressure 118/60 with a heart rate in the 60s respirations 16. He is 94% on room air. White blood cell count 5.8, hemoglobin 12.6, platelet count 262. Sodium 137, potassium 3.9, BUN 10, creatinine 1.0. Magnesium 2.3. Troponin 0.0123. EtOH level on admission 185 INR 1.0. Cholesterol 272, triglycerides 241, HDL 31, LDL 193. An echocardiogram with Doppler study has been requested, we will decrease the aspirin 81 mg daily and resume the patient's statin. Past Medical History Past Medical History: Chest Pain / Angina, COPD, Deep Vein Thrombosis (DVT), Hyperlipidemia, Myocardial Infarction ([place]), Osteoarthritis (OA), Prostate Disorder, Pulmonary Embolus (PE) Additional Past Medical History / Comment(s): COPD, alcoholism, previous history of a left lower extremity DVT and pulmonary embolism in January 2013, chronic back pain, history of right arm fractures, osteoarthritis, bilateral inguinal hernia, psoriasis, BPH, peripheral vascular disease, peripheral neuropathy, vertigo, insomnia Last Myocardial Infarction Date:: early History of Any Multi-Drug Resistant Organisms: MRSA Date of last positivie culture/infection: 12/13/18 MDRO Source:: Right Knee Past Surgical History: Orthopedic Surgery Additional Past Surgical History / Comment(s): orif lt hip plate/screws have since been removed. Past Anesthesia/Blood Transfusion Reactions: No Reported Reaction Past Psychological History: Anxiety, Depression Additional Psychological History / Comment(s): He has a walker but does not use it. He cannot drive, no license. He gets to [facility], [place] by bus or walking. Smoking Status: Current every day smoker Past Alcohol Use History: Abuse, Daily Additional Past Alcohol Use History / Comment(s): Pt started smoking at age 10 smokes 1 ppd. Patient denies any marijuana or street drug use. Patient states he is a recovering alcoholic, drinking 2-3 drinks a couple drinks per week Past Drug Use History: None Reported - Past Family History Brother(s) Family Medical History: No Reported History Additional Family Medical History / Comment(s): He has 3 brothers with no major medical problems. Patient does not have any sisters. He has 4 children are apparently okay. Father Family Medical History: Myocardial Infarction ([place]) Additional Family Medical History / Comment(s): in his 60's [place] Mother Family Medical History: Myocardial Infarction ([place]) Additional Family Medical History / Comment(s): in her 60's [place] Medications and Allergies Home Medications Medication Instructions Recorded Confirmed Type traMADol HCL [Ultram] 50 mg PO BID 06/17/18 12/17/19 History Atorvastatin Calcium [Lipitor] 40 mg PO DAILY 10/08/18 12/17/19 History Docusate [Colace] 100 mg PO BID 12/17/19 12/17/19 History Gabapentin 600 mg PO DAILY 12/17/19 12/17/19 History Nitroglycerin Sl Tabs [Nitrostat] 0.4 mg SL Q5M PRN 12/17/19 12/17/19 History Warfarin [Coumadin] 5 mg PO DAILY 12/17/19 12/17/19 History Allergies Allergy/AdvReac Type Severity Reaction Status Date / Time No Known Allergies Allergy Verified 12/17/19 23:25 Physical Exam Vitals: Vital Signs Temp Pulse Pulse Resp BP BP Pulse Ox 12/18/19 08:38 98.2 F 68 14 118/61 94 L 12/18/19 04:00 98.7 F 77 19 98/57 93 L 12/18/19 00:44 98.7 F 84 18 103/64 97 12/18/19 00:10 98.7 F 77 17 95/54 93 L 12/17/19 23:39 78 18 110/58 95 12/17/19 20:58 98.9 F 89 16 134/73 96 Intake and Output 12/17/19 12/18/19 12/18/19 22:59 06:59 14:59 Intake Total 200 Balance 200 Intake: Oral 200 Other: Voiding Method Urinal # Voids 0 Weight 68.039 kg 79 kg PHYSICAL EXAMINATION: GENERAL: 59-year-old gentleman in no acute distress at the time of my examination HEENT: Head is atraumatic, normocephalic. Pupils equal, round. Sclera anicteric. Conjunctiva are clear. Mucous membranes of the mouth are moist. Neck is supple. There is no elevated jugular venous pressure. No carotid bruit is heard. HEART EXAMINATION: Heart S1-S2 normal, no murmur or gallop heard CHEST EXAMINATION: And's reveal some fine scattered wheezing throughout ABDOMEN: Soft, nontender. Bowel sounds are heard. No organomegaly noted. EXTREMITIES: 1+ peripheral pulses to the left lower extremity, no edema, patient has a right [id number] amputation. NEUROLOGIC patient is awake, alert and oriented 3 . . Results 12/17/19 21:46 12/17/19 21:46 Cardiac Enzymes 12/17/19 12/17/19 12/18/19 Range/Units 21:46 21:46 00:25 AST 16 L (17-59) U/L Troponin I <0.012 <0.012 (0.000-0.034) ng/mL 12/18/19 Range/Units 03:07 AST (17-59) U/L Troponin I <0.012 (0.000-0.034) ng/mL Coagulation 12/17/19 Range/Units 21:46 PT 10.1 (9.0-12.0) sec APTT 30.5 H (22.0-30.0) sec Lipids 12/18/19 Range/Units 03:07 Triglycerides 241 H (<150) mg/dL Cholesterol 272 H (<200) mg/dL HDL Cholesterol 31 L (40-60) mg/dL CBC 12/17/19 Range/Units 21:46 WBC 5.8 (3.8-10.6) k/uL RBC 4.21 L (4.30-5.90) m/uL Hgb 12.6 L (13.0-17.5) gm/dL Hct 38.5 L (39.0-53.0) % Plt Count 262 (150-450) k/uL Comprehensive Metabolic Panel 12/17/19 Range/Units 21:46 Sodium 137 (137-145) mmol/L Potassium 3.9 (3.5-5.1) mmol/L Chloride 106 (98-107) mmol/L Carbon Dioxide 18 L (22-30) mmol/L BUN 10 (9-20) mg/dL Creatinine 1.02 (0.66-1.25) mg/dL Glucose 116 H (74-99) mg/dL Calcium 9.2 (8.4-10.2) mg/dL AST 16 L (17-59) U/L ALT 7 (4-49) U/L Alkaline Phosphatase 86 (38-126) U/L Total Protein 7.5 (6.3-8.2) g/dL Albumin 4.2 (3.5-5.0) g/dL Current Medications Generic Name Dose Route Start Last Admin Trade Name Freq PRN Reason Stop Dose Admin Albuterol/Ipratropium 3 ml 12/18/19 08:00 12/18/19 10:40 Ipratropium-Albuterol 3 Ml Neb INHALATION Not Given RT-QID LEIGH Albuterol/Ipratropium 3 ml 12/17/19 22:55 Ipratropium-Albuterol 3 Ml Neb INHALATION RT-Q4H PRN Shortness Of Breath Or Wheezing Aspirin 81 mg 12/18/19 09:01 Aspirin 81 Mg PO DAILY LEIGH Atorvastatin Calcium 40 mg 12/18/19 21:00 Atorvastatin 40 Mg Tab PO HS LEIGH Docusate Sodium 100 mg 12/18/19 21:00 Docusate 100 Mg Cap PO BID LEIGH Enoxaparin Sodium 80 mg 12/18/19 10:15 12/18/19 10:58 Enoxaparin 80 Mg/0.8 Ml Syringe SQ 80 mg Q12HR LEIGH Administration Gabapentin 600 mg 12/19/19 09:00 Gabapentin 300 Mg Cap PO DAILY LEIGH Sodium Chloride 1,000 mls @ 100 mls/hr 12/18/19 10:00 12/18/19 10:58 Saline 0.9% IV 100 mls/hr .Q10H LEIGH Administration Insulin Aspart 0 unit 12/18/19 07:30 12/18/19 06:48 Insulin Aspart (Novolog) 100 Unit/Ml Vial SQ 6 unit ACHS LEIGH Administration Protocol Lorazepam 1 mg 12/17/19 22:54 Lorazepam 2 Mg/Ml Inj IV Q2HR PRN CIWA 8 or 9 Lorazepam 1 mg 12/17/19 22:54 Lorazepam 2 Mg/Ml Inj IV Q1HR PRN CIWA 10 to 15 Lorazepam 2 mg 12/17/19 22:54 Lorazepam 2 Mg/Ml Inj IV 12/19/19 22:54 Q10M PRN CIWA 16 or higher Miscellaneous Information 1 each 12/18/19 09:58 Warfarin Per Pharmacy MISCELLANE DIRECTED PRN Per Protocol Multivitamins 1 each 12/18/19 09:00 12/18/19 10:58 Multivitamins, Thera 1 Each Tab PO 1 each DAILY LEIGH Administration Nicotine 1 patch 12/18/19 11:15 12/18/19 11:20 Nicotine 14mg/24hr Patch TRANSDERM 1 patch DAILY LEIGH Administration Nitroglycerin 0.4 mg 12/17/19 22:55 Nitroglycerin Sl Tabs 0.4 Mg Tab SUBLINGUAL Q5M PRN Chest Pain Prednisone 40 mg 12/19/19 09:00 Prednisone 20 Mg Tab PO DAILY [facility] Sodium Chloride 10 ml 12/18/19 09:00 12/18/19 07:53 Sodium Chloride 0.9% Flush 10 Ml Syringe IV Not Given BID LEIGH Thiamine HCl 100 mg 12/18/19 07:30 12/18/19 06:48 Thiamine 100 Mg Tab PO 100 mg BID-W/MEALS LEIGH Administration Tramadol HCl 50 mg 12/18/19 21:00 Tramadol 50 Mg Tab PO BID [facility] Warfarin Sodium 5 mg 12/19/19 18:00 Warfarin 5 Mg Tab PO DAILY@1800 [facility] Protocol Warfarin Sodium 10 mg 12/18/19 18:00 Warfarin 10 Mg Tab PO 12/18/19 18:01 ONCE ONE Intake and Output 12/17/19 12/18/19 12/18/19 22:59 06:59 14:59 Intake Total 200 Balance 200 Intake: Oral 200 Other: Voiding Method Urinal # Voids 0 Weight 68.039 kg 79 kg 12/17/19 21:46 12/17/19 21:46 EKG Interpretations (text) EKG shows a normal sinus rhythm with no acute changes. Assessment and Plan Plan: Assessment and plan #1 left leg pain and numbness #2 atypical chest pain, troponins negative 3. EKG shows a normal sinus rhythm with no acute changes. #3 EtOH abuse, alcohol level on admission 185 #4 nicotine dependence #5 history of pulmonary embolism and DVT, patient not taking his Coumadin regularly at home #6 COPD #7 hyperlipidemia #8 history of depression and suicidal attempts, patient is currently on suicidal precautions #9 status post right AKA Plan We will obtain an echocardiogram with Doppler study, decrease the patient's aspirin to 81 mg daily and resume the statin. Further recommendations to follow. DNP note has been reviewed, I agree with a documented findings and plan of care. Patient was seen and examined.
[2019-12-18 11:46] LABS: Glucose,Whole Blood 209 mg/dL (75-99)
--- NOTE | 2019-12-18 14:36 | P.CN ---
Psychiatric Consult - . Consult date: 12/18/19 Consult:: 12/18/19 14:23 IDENTIFYING DATA: This patient is a 59-year-old male with a significant history of major depression, anxiety, alcohol use disorder, and tobacco use the chief complaint of depression. HISTORY OF PRESENT ILLNESS: The patient presented to the hospital with complaints of left anterior thigh pain as well as pain located above his right knee amputation. Patient was admitted for chest pain and COPD exacerbation. He was also noted to have a DVT in his left leg and has been on anticoagulation. Patient initially endorsed suicidal ideation and worsening depression. He reports that his depression has been significantly worse over the past year since his amputation. He endorses symptoms of sadness, lack of appetite, and difficulty sleeping. He has reported suicidal ideations but denies any significant attempts or plans over the past year. He is not reporting any anhedonia or hopelessness. He does report a prior suicide attempt approximately 3 years ago by cutting his right arm after which she was admitted here at [facility] and reports being started on Lexapro which has been beneficial for him in the past. He was initially following up with [facility] but has missed too many appointments and reports being discharged from their care. Currently he is not endorsing any suicidal or homicidal ideation, intention, and/or plan. Patient reports that he is looking forward to hearing back if he qualifies for disability. Patient denies any auditory, visual hallucinations and denies any paranoia or delusions. Patients admits to using alcohol. He states that he averages 2-3 beers per week but states last night he drank approximately 5 drinks. He reports a history of tremors but denies any history of withdrawal seizures or delirium tremens. PAST PSYCHIATRIC HISTORY: Patient has a a history of depression. Patient reports he is being treated with Lexapro. He reports prior hospitalization at [facility]. He is currently not open to any outpatient psychiatric foll ow-up. He reports one prior suicide attempt 3 years ago. PAST MEDICAL HISTORY: COPD, DVT, hyperlipidemia, myocardial infarction, Phil arthritis, prostate disorder, pulmonary embolus, peripheral neuropathy ALLERGIES: as per EMR. CHEMICAL DEPENDENCY HISTORY: as per HPI. FAMILY PSYCHIATRIC/SUBSTANCE USE HISTORY: Denies SOCIAL HISTORY: Patient reports that he is a Spiritism and will occasionally attend mu-ism. He is currently waiting to hear back regarding his case for disability. MENTAL STATUS EXAM: General Appearance: Patient appears to be stated age is alert, pleasant, and cooperative. Patient appears to have fair hygiene and grooming wearing hospital gown with good eye contact. Behavior: Patient is calmly lying in bed without any agitated behavior. Speech: Patient's speech is fluent and nonpressured. Mood/Affect: Patient reports their mood is "depressed", affect is congruent Suicidality/Homicidality: Patient denies having any suicidal or homicidal ideation intent or plan. Perceptions: Patient denies any visual hallucinations and denies any auditory hallucinations Though content/process: There is no evidence of any delusional thought content and thought process is linear and goal-directed. Memory and concentration: AOX3, grossly intact for the purposes of this session. Can spell "WORLD" backwards Judgment and insight: Fair IMPRESSIONS: Major depressive disorder, recurrent Alcohol use disorder Tobacco use disorder PLAN: -At this time patient DOES NOT meet criteria for inpatient psychiatric admission. -Would recommend the following medication changes/additions: -Start Remeron 15 mg by mouth at bedtime for depression and insomnia -Discontinue one-to-one sitter -Psychiatry will sign off at this point, please contact with any questions. 12/18/19 14:30
--- NOTE | 2019-12-18 14:58 | XR ---
EXAMINATION TYPE: XR elbow complete RT DATE OF EXAM: 12/18/2019 COMPARISON: NONE HISTORY: Pain and swelling FINDINGS: Three views of the elbow demonstrate no pathologic joint effusion. The osseous structures are intact . There is no acute fracture or dislocation. Diffuse osteopenia. There is olecranon spur. Nonspecif ic soft tissue calcifications are noted IMPRESSION: 1. No acute fracture or dislocation. If symptoms persist follow-up study in 7 to 10 days could be ob tained. 2. There is an olecranon spur. Correlate for olecranon bursitis. MRI could be obtained for further ev aluation as clinically warranted.
[2019-12-18 16:43] LABS: Glucose,Whole Blood 197 mg/dL (75-99)
[2019-12-18] MEDS ORDERED: WARFARIN 10 MG TAB PO ONE (18:00)
[2019-12-18 18:53] LABS: Hemoglobin A1C 5.6 % (4.0-6.0)
[2019-12-18 20:08] LABS: Glucose,Whole Blood 255 mg/dL (75-99)
[2019-12-18] MEDS: traMADol 50 MG TAB PO SCH (20:34)
[2019-12-18] MEDS: DOCUSATE 100 MG CAP PO SCH (20:34)
[2019-12-18] MEDS ORDERED: MIRTAZAPINE 15 MG TAB PO SCH (21:00)
[2019-12-18] MEDS ORDERED: ATORVASTATIN 40 MG TAB PO SCH (21:00)
[2019-12-19 06:07] LABS: Glucose,Whole Blood 152 mg/dL (75-99)
[2019-12-19] MEDS: THIAMINE 100 MG TAB PO SCH (07:00)
[2019-12-19] MEDS: INSULIN ASPART (NovoLOG) 100 UNIT/ML VIAL SQ SCH ×2 (07:00→12:14)
[2019-12-19] MEDS: SODIUM CHLORIDE 0.9% 1,000 ML IV SCH (07:01)
[2019-12-19] MEDS: IPRATROPIUM-ALBUTEROL 3 ML NEB INHALATION SCH ×2 (08:07→11:10)
[2019-12-19 08:53] LABS: HCT 33.6 % (39.0-53.0); HGB 11.1 gm/dL (13.0-17.5); MCH 30.8 pg (25.0-35.0); MCV 93.4 fL (80.0-100.0); Mean Platelet Volume 7.2; Platelet Count 236 k/uL (150-450); RDW 14.6 % (11.5-15.5); WBC 4.3 k/uL (3.8-10.6)
[2019-12-19] MEDS: ENOXAPARIN 80 MG/0.8 ML SYRINGE SQ SCH (08:57)
[2019-12-19] MEDS: NICOTINE 14MG/24HR PATCH TRANSDERM SCH (08:57)
[2019-12-19] MEDS: DOCUSATE 100 MG CAP PO SCH (08:57)
[2019-12-19] MEDS: traMADol 50 MG TAB PO SCH (08:58)
[2019-12-19] MEDS: MULTIVITAMINS, THERA 1 EACH TAB PO SCH (08:58)
[2019-12-19] MEDS ORDERED: predniSONE 20 MG TAB PO SCH (09:00)
[2019-12-19] MEDS ORDERED: GABAPENTIN 300 MG CAP PO SCH (09:00)
[2019-12-19 09:02] LABS: INR 0.9 (<1.2); Prothrombin Time 9.8 sec (9.0-12.0)
[2019-12-19 09:04] LABS: African American GFR (CKD) >90 (>60 ml/min/1.73 sqM); Anion Gap 4 mmol/L; Blood Urea Nitrogen 14 mg/dL (9-20); Calcium 8.7 mg/dL (8.4-10.2); Carbon Dioxide 22 mmol/L (22-30); Chloride 112 mmol/L (98-107); Glucose 125 mg/dL (74-99); Non-African American GFR(CKD) 89 (>60 ml/min/1.73 sqM); Sodium 138 mmol/L (137-145)
--- NOTE | 2019-12-19 11:25 | P.PN ---
Subjective Progress Note Date: 12/19/19 This is a 59-year-old gentleman with documented history of nicotine dependence, EtOH abuse, history of PE and DVT, not taking Coumadin reliably, he states that he's not taking any of his medications as per schedule. History also of COPD, hyperlipidemia, depression and suicidal attempts, history of right aihjo-qgq-wequ amputation. He presented to the hospital on this admission with symptoms of left leg discomfort and numbness, patient also states that he was getting intermittent sharp chest pains off and on. Cardiology request was for the chest pain. EKG on presentation here showed normal sinus rhythm with no acute changes. Blood pressure 118/60 with a heart rate in the 60s respirations 16. He is 94% on room air. White blood cell count 5.8, hemoglobin 12.6, platelet count 262. Sodium 137, potassium 3.9, BUN 10, creatinine 1.0. Magnesium 2.3. Troponin 0.0123. EtOH level on admission 185 INR 1.0. Cholesterol 272, triglycerides 241, HDL 31, LDL 193. An echocardiogram with Doppler study has been requested, we will decrease the aspirin 81 mg daily and resume the patient's statin. 12/19/2019 Patient was seen and examined this morning, denied any chest discomfort and reagan athing this morning if stable. We are waiting the results of his echocardiogram with Doppler study. Blood pressure 104/50 with a heart rate in the 70s, 96% on room air. White blood cell count 4.3, hemoglobin 11.1, platelet count 236. Sodium 138, potassium 4.0, BUN 14, creatinine 0.9. Objective - Vital Signs Vital signs: Vital Signs Temp 97.8 F 12/19/19 07:59 Pulse 57 L 12/19/19 07:59 Resp 14 12/19/19 07:59 BP 103/58 12/19/19 07:59 Pulse Ox 96 12/19/19 07:59 Intake & Output 12/18/19 12/19/19 12/19/19 18:59 06:59 18:59 Intake Total 2140 160 Output Total 1000 1974 Balance 1139 -1974 160 Weight 83.5 kg Intake: Intake, IV Titration 700 Amount Sodium Chloride 0.9% 1, 700 000 ml @ 100 mls/hr IV . Q10H [facility] Rx#:[id number] Oral 1440 160 Output: Urine 1000 1975 Other: Voiding Method Urinal Urinal # Voids 3 1 - Exam PHYSICAL EXAMINATION: GENERAL: 59-year-old gentleman in no acute distress at the time of my examination HEENT: Head is atraumatic, normocephalic. Pupils equal, round. Sclera anicteric. Conjunctiva are clear. Mucous membranes of the mouth are moist. Neck is supple. There is no elevated jugular venous pressure. No carotid bruit is heard. HEART EXAMINATION: Heart S1-S2 normal, no murmur or gallop heard CHEST EXAMINATION: And's reveal some fine scattered wheezing throughout ABDOMEN: Soft, nontender. Bowel sounds are heard. No organomegaly noted. EXTREMITIES: 1+ peripheral pulses to the left lower extremity, no edema, patient has a right obuip-dsw-hwof amputation. NEUROLOGIC patient is awake, alert and oriented 3 . . - Labs CBC & Chem 7: 12/19/19 08:15 12/19/19 08:15 Labs: Abnormal Lab Results - Last 24 Hours (Table) 12/18/19 12/18/19 12/18/19 Range/Units 11:45 16:42 20:05 RBC (4.30-5.90) m/uL Hgb (13.0-17.5) gm/dL Hct (39.0-53.0) % Chloride (98-107) mmol/L Glucose (74-99) mg/dL POC Glucose (mg/dL) 209 H 197 H 255 H (75-99) mg/dL 12/19/19 12/19/19 12/19/19 Range/Units 06:06 08:15 08:15 RBC 3.60 L (4.30-5.90) m/uL Hgb 11.1 L (13.0-17.5) gm/dL Hct 33.6 L (39.0-53.0) % Chloride 112 H (98-107) mmol/L Glucose 125 H (74-99) mg/dL POC Glucose (mg/dL) 152 H (75-99) mg/dL Assessment and Plan Plan: Assessment and plan #1 left leg pain and numbness #2 atypical chest pain, troponins negative 3. EKG shows a normal sinus rhythm with no acute changes. #3 EtOH abuse, alcohol level on admission 185 #4 nicotine dependence #5 history of pulmonary embolism and DVT, patient not taking his Coumadin regularly at home #6 COPD #7 hyperlipidemia #8 history of depression and suicidal attempts, patient is currently on suicidal precautions #9 status post right AKA Plan We will review then echocardiogram with Doppler study, continue current medications. From our perspective the patient may be able to be discharged home once cleared by primary. DNP note has been reviewed, I agree with a documented findings and plan of care. Patient was seen and examined.
[2019-12-19 11:47] LABS: Glucose,Whole Blood 112 mg/dL (75-99)
[2019-12-19 12:01] VITALS: BP 113/73; PULSE 55; RESP 16; TEMP 97.5
--- NOTE | 2019-12-19 12:10 | P.DS ---
Providers Date of admission: 12/17/19 22:59 Attending physician: Shantal Venegas Consults: 12/17/19 22:55 Consult Physician Routine Consulting Provider: Ry Clarke Consult Reason/Comments: elbow evaluation Do you want consulting provider notified?: Yes Consult Physician Routine Consulting Provider: Des Champion Consult Reason/Comments: cp Do you want consulting provider notified?: Yes 12/17/19 23:02 Consult Physician Urgent Consulting Provider: Klaus Dietrich Consult Reason/Comments: suicidal ideation Do you want consulting provider notified?: Yes Primary care physician: Stated None Hospital Course: 59-year-old male came in with complaints of left thigh pain apparently but he was comparing of right leg pain radiating an amputation above the knee. Patient was comparing of pain in the right elbow and he believes it packaging specialist. Patient denied any shortness of breath to me when I asked him about shortness of breath he did say he probably had shortness of breath yesterday he was also complaining of chest pain mostly in the retrosternal area moderate severity nonradiating although his chest pain history keeps on changing he denied any clear history of diaphoresis denied any nausea vomiting. Patient had a troponin which was negative and an EKG as well cardiology is of admitting the patient patient is found to have a DVT, nonocclusive and chronic in the left leg involving femoral and popliteal veins. Patient was on Coumadin appears to be noncompliant with Coumadin. Patient admits drinking alcohol but only twice a week does smoke a pack of cigarettes per day. Patient was basically admitted for chest pain and COPD exacerbation although patient is saturating well on room air because of which I'm discontinued and IV steroids patient was switched to oral steroids. Patient apparently was complaining of suicidal ideations cc patient is depressed but he doesn't have any suicidal ideations when I asked him about this. 12/19/2019 Patient doesn't have any septic was a result does have olecranon bursitis for which patient will be discharged on naproxen for about a week and follow-up with with arthritic surgery as an outpatient. Patient is highly incompetent doesn't follow with any physician. [facility] Patient was evaluated by cardiology cleared for discharge patient the doesn't have any significant wheezing is not in severity and COPD exacerbation at this time psychiatric evaluated the patient and they're recommending Remeron and no recommendation for psychiatric admission. Patient is noncompliant with medications and INR is 0.9 is not taking Coumadin as an outpatient patient will switch to Eliquis. Patient does have a chronic DVT in the left leg. PHYSICAL EXAMINATION: GENERAL: The patient is alert and oriented x3, not in any acute distress. Well developed, well nourished. HEENT: Pupils are round and equally reacting to light. EOMI. No scleral icterus. No conjunctival pallor. Normocephalic, atraumatic. No pharyngeal erythema. No thyromegaly. CARDIOVASCULAR: S1 and S2 present. No murmurs, rubs, or gallops. PULMONARY: Chest is clear to auscultation, no wheezing or crackles. ABDOMEN: Soft, nontender, nondistended, normoactive bowel sounds. No palpable organomegaly. MUSCULOSKELETAL: Patient does have some rigidity in the right elbow area in the right arm there is no significant swelling in the right EXTREMITIES: No cyanosis, clubbing, or pedal edema. NEUROLOGICAL: Gross neurological examination did not reveal any focal deficits. SKIN: No rashes. Assessment and Plan Plan: -Chest pain: Atypical, ruled out acute coronary syndromes cardiology evaluated the patient cleared for discharge --COPD with mild acute exacerbation -Chronic DVT in the left leg -Anion gap metabolic acidosis: Secondary to alcoholism -Alcohol abuse: Counseling was provided patient doesn't have any alcohol withdrawals at this time -Olecranon bursitis of the right elbow naproxen upon discharge -Acute renal failure: Prerenal azotemia approved with IV fluids -Hyperlipidemia -Hypertension -Depression patient will be discharged on Remeron -Elevated blood sugars hemoglobin A1c pending no history of type 2 diabetes mellitus patient blood sugars are bit elevated because of systemic steroids he was receiving presently better controlled now after he was started on oral steroids. I do not believe patient will require any systemic steroids upon discharge patient will be discharged on inhaled steroids -Benign prostatic hypertrophy -History of DVT and PE in the past -Coronary artery disease Plan - Discharge Summary Discharge Rx Participant: No New Discharge Prescriptions: New Apixaban [Eliquis Starter Pack (for VTE)] 0 mg PO DIRECTED 30 Days #1 pack Naproxen 500 mg PO BID #14 tablet Famotidine [Pepcid] 20 mg PO BID #30 tablet Tiotropium [place] [Spiriva] 1 cap INHALATION DAILY #1 device Budesonide-Formot 160-4.5 Mcg [Symbicort 160-4.5 Mcg Inhaler] 2 puff INHALATION BID #1 inhaler Albuterol Inhaler [Ventolin Hfa Inhaler] 2 puff INHALATION RT-QID PRN #1 inhaler PRN Reason: Shortness Of Breath Or Wheezing Thiamine [Vitamin B-1] 100 mg PO BID-W/MEALS #30 tab Mirtazapine [Remeron] 15 mg PO HS #30 tab Continue Atorvastatin Calcium [Lipitor] 40 mg PO DAILY Nitroglycerin Sl Tabs [Nitrostat] 0.4 mg SL Q5M PRN PRN Reason: Chest Pain Docusate [Colace] 100 mg PO BID Gabapentin 600 mg PO DAILY Discontinued traMADol HCL [Ultram] 50 mg PO BID Warfarin [Coumadin] 5 mg PO DAILY Discharge Medication List Atorvastatin Calcium [Lipitor] 40 mg PO DAILY 10/08/18 [History] Docusate [Colace] 100 mg PO BID 12/17/19 [History] Gabapentin 600 mg PO DAILY 12/17/19 [History] Nitroglycerin Sl Tabs [Nitrostat] 0.4 mg SL Q5M PRN 12/17/19 [History] Albuterol Inhaler [Ventolin Hfa Inhaler] 2 puff INHALATION RT-QID PRN #1 inhaler 12/19/19 [Rx] Apixaban [Eliquis Starter Pack (for VTE)] 0 mg PO DIRECTED 30 Days #1 pack 12/19/19 [Rx] Budesonide-Formot 160-4.5 Mcg [Symbicort 160-4.5 Mcg Inhaler] 2 puff INHALATION BID #1 inhaler 12/19/19 [Rx] Famotidine [Pepcid] 20 mg PO BID #30 tablet 12/19/19 [Rx] Mirtazapine [Remeron] 15 mg PO HS #30 tab 12/19/19 [Rx] Naproxen 500 mg PO BID #14 tablet 12/19/19 [Rx] Thiamine [Vitamin B-1] 100 mg PO BID-W/MEALS #30 tab 12/19/19 [Rx] Tiotropium [place] [Spiriva] 1 cap INHALATION DAILY #1 device 12/19/19 [Rx] Follow up Appointment(s)/Referral(s): None,Stated [Primary Care Provider] - 1-2 days [facility] [NON-STAFF] - 1-2 Days Patient Instructions/Handouts: Chest Pain (GEN), COPD (Chronic Obstructive Pulmonary Disease) (DC) Discharge Disposition: HOME SELF-CARE
--- NOTE | 2019-12-19 12:37 | ECHOF ---
Referral Reason:chest pain MEASUREMENTS -------- HEIGHT: 175.3 cm WEIGHT: 83.5 kg BP: 103/58 RVIDd: 3.7 cm (< 3.3) IVSd: 1.1 cm (0.6 - 1.1) LVIDd: 4.2 cm (3.9 - 5.3) LVPWd: 1.0 cm (0.6 - 1.1) IVSs: 1.3 cm LVIDs: 3.5 cm LVPWs: 1.4 cm LA Diam: 4.0 cm (2.7 - 3.8) Ao Diam: 3.3 cm (2.0 - 3.7) AV Cusp: 1.7 cm (1.5 - 2.6) MV EXCURSION: 20.477 mm (> 18.000) MV EF SLOPE: 91 mm/s (70 - 150) EPSS: 1.2 cm MV E Jesus Alberto: 0.80 m/s MV DecT: 156 ms MV A Jesus Alberto: 0.61 m/s MV E/A Ratio: 1.32 RAP: 5.00 mmHg RVSP: 15.95 mmHg FINDINGS -------- Sinus rhythm. This was a techncally difficult study with suboptimal views, , Lumason utilized for enhancement of im ages. The left ventricular size is normal. Left ventricular wall thickness is normal. Overall left vent ricular systolic function is normal with, an EF between 55 - 60 %. The diastolic filling pattern is normal for the age of the patient 8.44. The right ventricle is normal in size. The left atrial size is normal. The right atrial size is normal. 5.0mg OF Lumason UTLIZED: 2 OR MORE WALL SEGMENTS NOT VISUALIZED. There is mild aortic valve sclerosis. Mild mitral regurgitation is present. Mild tricuspid regurgitation present. Right ventricular systolic pressure is normal at < 35 mmHg. The pulmonic valve was not well visualized. The aortic root size is normal. Echo free space represents a pericardial fat pad. CONCLUSIONS -------- 1. The left ventricular size is normal. 2. Left ventricular wall thickness is normal. 3. The diastolic filling pattern is normal for the age of the patient 8.44 4. The right ventricle is normal in size. 5. The left atrial size is normal. 6. The right atrial size is normal. 7. 5.0mg OF Lumason UTLIZED: 2 OR MORE WALL SEGMENTS NOT VISUALIZED. 8. There is mild aortic valve sclerosis. 9. Mild mitral regurgitation is present. 10. Mild tricuspid regurgitation present. 11. Echo free space represents a pericardial fat pad. [employer] MANAGER: Alem Connolly RDCS
[2019-12-19] MEDS ORDERED: WARFARIN 3 MG TAB PO ONE (18:00)
[2019-12-19] MEDS ORDERED: WARFARIN 5 MG TAB PO SCH (18:00)
== END 2019-12-19 14:37 | disposition home or self-care (01) ==
LOC: EC 20:42 → 3SCARD 22:59
PROVIDERS: ADMIT Hospitalist; ATTEND Hospitalist
DX: R07.9 Chest pain, unspecified (principal); J44.1 Chronic obstructive pulmonary disease with (acute) exacerbation; E78.5 Hyperlipidemia, unspecified; E87.2 Acidosis; F10.21 Alcohol dependence, in remission; F17.210 Nicotine dependence, cigarettes, uncomplicated; F32.9 Major depressive disorder, single episode, unspecified; F41.9 Anxiety disorder, unspecified; I10 Essential (primary) hypertension; I25.10 Atherosclerotic heart disease of native coronary artery without angina pectoris; I25.2 Old myocardial infarction; I73.9 Peripheral vascular disease, unspecified; I82.502 Chronic embolism and thrombosis of unspecified deep veins of left lower extremity; M70.21 Olecranon bursitis, right elbow; R73.9 Hyperglycemia, unspecified; N17.9 Acute kidney failure, unspecified; N40.0 Benign prostatic hyperplasia without lower urinary tract symptoms; R79.1 Abnormal coagulation profile; Z79.82 Long term (current) use of aspirin; Z79.01 Long term (current) use of anticoagulants; Z82.49 Family history of ischemic heart disease and other diseases of the circulatory system; Z79.899 Other long term (current) drug therapy; Z89.611 Acquired absence of right leg above knee; Z91.14 Patient's other noncompliance with medication regimen; Z86.711 Personal history of pulmonary embolism; R45.851 Suicidal ideations
CPT/HCPCS: 96376; 96361 ×2; 96372 ×2; 93005 ×2; 96374; 96375; 99285; 36415; 94640 ×2; 80061; 80053; 80048; 83605; 83735; 84100; 84550; 84484 ×2; 85025; 85027; 85610 ×2; 85730; 81001; 83036; 73080; 71046; 93971; G0378 ×3; C8929; G0480; S4990 ×2; J2360; J2930; J1650 ×2; J7512; Q9950; 80320; 93306

== ENCOUNTER 2021-05-31 22:41 | Emergency (ER) | payer OTHER ==
[2021-05-31 22:52] VITALS: TEMP 98.3
--- NOTE | 2021-06-01 00:51 | ED ---
Lower Extremity Injury HPI - General Chief Complaint: Extremity Injury, Lower Stated Complaint: left leg pain Time Seen by Provider: 06/01/21 00:34 Source: patient, RN notes reviewed Mode of arrival: wheelchair Limitations: no limitations - History of Present Illness Initial Comments: This is a pleasant 60-year-old male with multiple medical issues to include right AKA. Patient presents to the emergency department today stating that he fell on May 13 and his left leg rolled under him. He states that since then he has had pain to the lower part of his leg. He states he is finally getting here for evaluation. Patient states he uses crutches because having a hard time getting around. Patient has a history of DVT and PE. Patient states he is on anticoagulation therapy and he has been taking his antibiotics appropriately. No headache, no fever or chills, no changes in vision or hearing, no sore throat or difficulty with speech, no neck pain, no chest pain or shortness of breath, no abdominal pain, no nausea or vomiting, no changes in urination or bowel movements, no numbness or tingling, no skin rashes or lesions. Note that the patient is complaining of pain mostly to the area of the proximal tibia. He states the pain is exacerbated by attempted ambulation and palpation. No distal paresthesias. No foot pain. No hip pain. - Related Data Home Medications Medication Instructions Recorded Confirmed Atorvastatin Calcium [Lipitor] 40 mg PO DAILY 10/08/18 12/17/19 Docusate [Colace] 100 mg PO BID 12/17/19 12/17/19 Gabapentin 600 mg PO DAILY 12/17/19 12/17/19 Nitroglycerin Sl Tabs [Nitrostat] 0.4 mg SL Q5M PRN 12/17/19 12/17/19 Previous Rx's Medication Instructions Recorded Albuterol Inhaler [Ventolin Hfa 2 puff INHALATION RT-QID PRN #1 12/19/19 Inhaler] inhaler Apixaban [Eliquis Starter Pack 0 mg PO DIRECTED 30 Days #1 pack 12/19/19 (for VTE)] Budesonide-Formot 160-4.5 Mcg 2 puff INHALATION BID #1 inhaler 12/19/19 [Symbicort 160-4.5 Mcg Inhaler] Famotidine [Pepcid] 20 mg PO BID #30 tablet 12/19/19 Mirtazapine [Remeron] 15 mg PO HS #30 tab 12/19/19 Naproxen 500 mg PO BID #14 tablet 12/19/19 Thiamine [Vitamin B-1] 100 mg PO BID-W/MEALS #30 tab 12/19/19 Tiotropium [place] [Spiriva] 1 cap INHALATION DAILY #1 device 12/19/19 HYDROcodone/APAP 5-325MG [[place] 1 tab PO Q6HR PRN 3 Days #12 tab 06/01/21 5-325] Allergies Allergy/AdvReac Type Severity Reaction Status Date / Time No Known Allergies Allergy Verified 05/31/21 22:48 Review of Systems ROS Statement: Those systems with pertinent positive or pertinent negative responses have been documented in the HPI. ROS Other: All systems not noted in ROS Statement are negative. Past Medical History Past Medical History: Chest Pain / Angina, COPD, Deep Vein Thrombosis (DVT), Hyperlipidemia, Myocardial Infarction (MD), Osteoarthritis (OA), Prostate Disorder, Pulmonary Embolus (PE) Additional Past Medical History / Comment(s): COPD, alcoholism, previous history of a left lower extremity DVT and pulmonary embolism in January 2013, chronic back pain, history of right arm fractures, osteoarthritis, bilateral inguinal hernia, psoriasis, BPH, peripheral vascular disease, peripheral neuropathy, vertigo, insomnia Last Myocardial Infarction Date:: early History of Any Multi-Drug Resistant Organisms: MRSA Date of last positivie culture/infection: 12/13/18 MDRO Source:: Right Knee Past Surgical History: Orthopedic Surgery Additional Past Surgical History / Comment(s): orif lt hip plate/screws have since been removed. right above knee amputation. Past Anesthesia/Blood Transfusion Reactions: No Reported Reaction Past Psychological History: Anxiety, Depression Smoking Status: Current every day smoker Past Alcohol Use History: Abuse, Daily Past Drug Use History: None Reported - Past Family History Brother(s) Family Medical History: No Reported History Additional Family Medical History / Comment(s): He has 3 brothers with no major medical problems. Patient does not have any sisters. He has 4 children are apparently okay. Father Family Medical History: Myocardial Infarction (MD) Additional Family Medical History / Comment(s): in his 60's from [place] Mother Family Medical History: Myocardial Infarction (MD) Additional Family Medical History / Comment(s): in her 60's from [place] General Exam - General Exam Comments Initial Comments: Pleasant 60-year-old male presenting in minimal distress secondary to left lower leg pain, mostly the proximal tibia area. Limitations: no limitations General appearance: alert, in no apparent distress Head exam: Present: atraumatic, normocephalic, normal inspection Eye exam: Present: normal appearance, PERRL, EOMI. Absent: scleral icterus, conjunctival injection, periorbital swelling ENT exam: Present: normal exam, mucous membranes moist Neck exam: Present: normal inspection, full ROM. Absent: tenderness, meningismus, lymphadenopathy Respiratory exam: Present: normal lung sounds bilaterally. Absent: respiratory distress, wheezes, rales, rhonchi, stridor Cardiovascular Exam: Present: regular rate, normal rhythm, normal heart sounds. Absent: systolic murmur, diastolic murmur, rubs, gallop, clicks GI/Abdominal exam: Present: soft, normal bowel sounds. Absent: distended, tenderness, guarding, rebound, rigid Extremities exam: Present: tenderness, normal capillary refill. Absent: pedal edema, joint swelling, calf tenderness Right General: Present: other (Right AKA without evidence of abnormality otherwise) Left Hip exam: Present: normal inspection, full ROM. Absent: tenderness Upper Leg exam: Present: normal inspection. Absent: tenderness, swelling, ecchymosis, deformity, erythema Knee exam: Present: normal inspection, full ROM. Absent: tenderness, ecchymosis, deformity, crepitus, dislocation, erythema, effusion Lower Leg exam: Present: tenderness (Tender over the proximal tibia area. No break in skin integrity. No erythema. No rash or lesions. No significant edema). Absent: ecchymosis, deformity, crepitus, dislocation Ankle exam: Present: normal inspection, full ROM. Absent: tenderness, swelling, ecchymosis Foot/Toe exam: Present: normal inspection, full ROM. Absent: tenderness, swelling, abrasion, ecchymosis, deformity, crepitus, erythema Neurovascular tendon exam: Present: no vascular compromise. Absent: pulse deficit, abnormal cap refill, motor deficit, sensory deficit, extremity cold to touch Back exam: Present: normal inspection Neurological exam: Present: alert, oriented X3, CN II-XII intact Psychiatric exam: Present: normal affect, normal mood Skin exam: Present: warm, dry, intact, normal color. Absent: rash Course Vital Signs 05/31/21 22:49 Temperature 98.3 F Pulse Rate 80 Respiratory 20 Rate Blood Pressure 142/77 O2 Sat by Pulse 98 Oximetry Procedures - Orthopedic Splinting/Casting Injury #1 Side: left Lower Extremity Injury Location: long leg Lower Extremity Immobilizer: knee immobilizer Additional Comments: Neurovascular status intact both pre-and post-application Medical Decision Making - Medical Decision Making Plain film x-rays be ordered. Patient is mostly tender over the proximal tibia. This is not appear to be consistent with DVT. Patient is on anticoagulation. Suspect the patient has injury to the tibia. Distal neurovascular status inta ct. Patient placed in a knee immobilizer. Patient will be given follow-up with orthopedics. This treatment plan. All questions answered. Patient is a right AKA patient. This does make it difficult to treat the patient. However, we'll try the knee immobilizer. I did offer admission with the possible going to rehabilitation. Patient did not want this. Patient was told to return to the ER for any signs or symptoms worsen. Told to return immediately if any other problems arise. All questions answered. Treatment plan discussed. Patient in agreement Every effort has been made to ensure accuracy of this dictation. However, due to the limitations of electronic medical records and dictation devices, errors in charting still occur. - Radiology Data Radiology results: report reviewed, image reviewed Disposition Clinical Impression: Other fracture of shaft of left fibula, initial encounter for closed fracture Disposition: HOME SELF-CARE Condition: Stable Instructions (If sedation given, give patient instructions): Leg Fracture (ED), Knee Immobilizer (ED) Additional Instructions: Follow-up with your regular physician as directed. Return to the ER immediately if any symptoms worsen, new symptoms arise, or any other problems develop. Follow-up with the orthopedic physician as directed. Call Sunday morning for an appointment. Prescriptions: HYDROcodone/APAP 5-325MG [[place] 5-325] 1 tab PO Q6HR PRN 3 Days #12 tab PRN Reason: Pain Is patient prescribed a controlled substance at d/c from ED?: Yes Referrals: [facility] [Primary Care Provider] - 1-2 days Alexandr Kerns MD [STAFF PHYSICIAN] - 06/02/21 Time of Disposition: 02:01
--- NOTE | 2021-06-01 00:59 | XR ---
EXAMINATION TYPE: XR tibia fibula LT DATE OF EXAM: 06/01/2021 COMPARISON: NONE HISTORY: Leg pain TECHNIQUE: 4 views FINDINGS: There is nondisplaced oblique fracture of the proximal shaft of the fibula. The proximal ti lorna appears intact. Knee joint is anatomic. There is minimal spurring of the medial femoral and tibia l condyles. Ankle mortise is anatomic. There are small Achilles calcaneal spur. IMPRESSION: Acute nondisplaced fracture proximal fibula.
[2021-06-01] MEDS ORDERED: HYDROcodone/APAP 5-325MG 1 EACH TAB PO STA (01:36)
[2021-06-01 02:51] VITALS: RESP 16
[2021-06-01 02:52] VITALS: BP 142/66; PULSE 75
== END 2021-06-01 02:58 | disposition home or self-care (01) ==
LOC: EC 22:41
DX: S82.492A Other fracture of shaft of left fibula, initial encounter for closed fracture (principal); J44.9 Chronic obstructive pulmonary disease, unspecified; E78.5 Hyperlipidemia, unspecified; I25.2 Old myocardial infarction; M19.90 Unspecified osteoarthritis, unspecified site; F41.9 Anxiety disorder, unspecified; F32.A Depression, unspecified; F17.200 Nicotine dependence, unspecified, uncomplicated; Z79.01 Long term (current) use of anticoagulants; Z86.718 Personal history of other venous thrombosis and embolism; Z86.711 Personal history of pulmonary embolism; W18.30XA Fall on same level, unspecified, initial encounter
CPT/HCPCS: 99283; 73590; L1830